=== PATIENT | male | born 1940 ===

== ENCOUNTER 2017-01-27 09:06 | Day surgery (SDC) | payer OTHER ==
[2017-01-25 13:13] VITALS: BMI 31.7
[2017-01-27] MEDS ORDERED: Iohexol 350mg/ml 100 ML ONE (09:36)
[2017-01-27] MEDS ORDERED: Midazolam 2 MG/2 ML VIAL ONE (09:46)
[2017-01-27] MEDS ORDERED: Lidocaine 2% Inj (20ml) ONE (09:49)
[2017-01-27] MEDS ORDERED: Sodium Chloride 0.9% 500 ML IV SCH (11:00)
--- NOTE | 2017-01-27 13:00 | CARDCATH ---
PROCEDURE DATE: 01/27/2017 PERFORMING PHYSICIAN: Kimmie Farr MD REFERRING PHYSICIAN: Wilner Summers MD PROCEDURE PERFORMED: Left heart catheterization, coronary angiography, left ventriculography. INDICATIONS: Unstable angina, abnormal stress test. COMPLICATIONS: None. HISTORY: As follows: The patient is a 76-year-old male with a past medical history of hypertension, hypercholesterolemia, and diabetes mellitus, who had a previous nuclear perfusion stress test reveal ing reversible inferior ischemia. The patient was admitted to [facility] with unstable angina. Cardiac catheterization was recommended. DESCRIPTION OF PROCEDURE: As follows: After obtaining informed consent, the patient was prepped and draped in usual sterile fashion. The right groin was anesthetized with 2% lidocaine solution. A 6- Macedonian sheath was inserted into the right common femoral artery via modified Seldinger technique. Un alex fluoroscopic guidance and over a guidewire, diagnostic Radha catheter was used to perform coron jose angiography and left ventriculography. All catheters were then removed. Manual pressure was ching lied for hemostasis. FINDINGS: HEMODYNAMICS: There is no gradient across the aortic valve. CORONARIES: Left main arises from left sinus of Valsalva. There is a 30% stenosis of the distal ves zack. LEFT ANTERIOR DESCENDING ARTERY: Arises from the left main and courses along the anterior interventr icular groove. There is a 40% stenosis of the ostium of the vessel. The mid vessel has a 90% stenos is. CIRCUMFLEX: Vessel arises from the left main and courses along the left atrioventricular groove. Th is is a smaller caliber vessel. There is sequential 90% stenoses of the mid circumflex. RIGHT CORONARY ARTERY: Arises from the right sinus of Valsalva. There is a right dominant circulati on. There are mild irregularities of the vessel. LEFT VENTRICLE: Normal left ventricular systolic function. Ejection fraction is 55%. There is no m itral regurgitation, no aortic stenosis. CONCLUSIONS: 1. Two-vessel coronary artery disease. 2. Normal left ventricular function. PLAN: The patient will be started on antiplatelet therapy. He will be scheduled for 2 vessel sheldon ry intervention. Kimmie Farr MD cc: [phone] TT: 01/27/2017 13:00:11 sn
[2017-01-28 15:42] VITALS: RESP 18; O2SAT 100
== END 2017-01-27 14:00 | disposition home or self-care (01) ==
LOC: C.CATHLAB 09:06
PROVIDERS: ATTEND Internal Medicine Cardiovascular Disease
DX: I20.0 Unstable angina (principal); R94.39 Abnormal result of other cardiovascular function study
CPT/HCPCS: 82948; 93458; 94770; C1769; C1887; J1644; J2250; J3010; J7040; Q9967

== ENCOUNTER 2017-04-04 23:34 | Inpatient (IN) | payer MEDICARE, OTHER ==
[2017-04-04 23:34] VITALS: BMI 29.2
[2017-04-05 00:27] LABS: BASO # 0.1 K/uL (0.0-0.2); BASO % 0.5 % (0.0-2.0); EOS # 0.2 K/uL (0.0-0.7); EOS % 1.8 % (0.0-4.0); HEMATOCRIT 37.3 % (35.0-51.0); LYMPH # 1.8 K/uL (1.0-4.3); LYMPH % 18.5 % (20.0-40.0); MEAN CELL VOLUME 89.9 fL (80.0-94.0); MEAN CORPUSCULAR HEMOGLOBIN 30.5 pg (27.0-31.0); MEAN CORPUSCULAR HGB CONC 33.9 g/dL (33.0-37.0); MEAN PLATELET VOLUME 10.8 fL (7.2-11.7); MONO # 1.1 K/uL (0.0-0.8); MONO % 11.2 % (0.0-10.0); NRBC % 0.1 % (0.0-2.0); RED CELL DISTRIBUTION WIDTH 13.6 % (11.5-14.5); WHITE BLOOD COUNT 9.6 K/uL (4.8-10.8)
[2017-04-05 00:28] LABS: CHLORIDE 95 mmol/L (98-107); SODIUM 130 mmol/L (132-148)
[2017-04-05 00:29] LABS: POTASSIUM 3.5 mmol/L (3.6-5.2)
[2017-04-05 00:31] LABS: ALB/GLOB RATIO 1.4 (1.0-2.1); ALKALINE PHOSPHATASE 88 U/L (38-126); ALT/SGPT 28 U/L (21-72); AST/SGOT 27 U/L (17-59); BILIRUBIN,TOTAL 1.2 mg/dL (0.2-1.3); BLOOD UREA NITROGEN 13 mg/dL (9-20); CARBON DIOXIDE 23 mmol/L (22-30); GFR AFRICAN-AMERICAN > 60; GLUCOSE,RANDOM 83 mg/dL (75-110)
[2017-04-05 00:32] LABS: CALCIUM 8.6 mg/dl (8.6-10.4)
[2017-04-05] MEDS ORDERED: Nitroglycerin 2% Ointment Foilpak UD TOP STA (00:52)
[2017-04-05] MEDS ORDERED: Nitroglycerin 2% Ointment Foilpak UD TOP ONE (00:53)
--- NOTE | 2017-04-05 01:40 | C.PDOC ---
History Of Present Illness Patient is a 76 year old male who presents to the ER with a complaint of a pressure like chest pain that began this afternoon. Patient states the pain was worse before but is almost gone now. Patient had a cardiac cath put in 2 months ago; records show left main stent placed. Patient denies nausea, vomiting or diaphoresis. Time Seen by Provider: 04/05/17 00:04 Chief Complaint (Nursing): Chest Pain History Per: Patient History/Exam Limitations: no limitations Onset/Duration Of Symptoms: Hrs Current Symptoms Are (Timing): Better Quality: Pressure Associated Symptoms: denies: Nausea, Diaphoresis, Other (Vomiting) Modifying Factors: None Exacerbating Factors: None Alleviating Factors: None Recent travel outside of the [place]: No Past Medical History Reviewed: Historical Data, Nursing Documentation, Vital Signs Vital Signs: Last Vital Signs Temp 99.3 F 04/06/17 23:10 Pulse 72 04/07/17 03:30 Resp 20 04/06/17 23:10 BP 142/59 L 04/06/17 23:10 Pulse Ox 99 04/06/17 23:10 - Medical History PMH: Arthritis, Diabetes, HTN Surgical History: Appendectomy (1960) - [employer] Procedures MEASURE OF CARDIAC SAMPL & PRESSURE, L HEART, PERC APPROACH (01/25/17) PLAIN RADIOGRAPHY OF SINGLE COR ART USING OTH CONTRAST (01/25/17) Family History: States: Hypertension - Social History Hx Tobacco Use: No Hx Alcohol Use: No Hx Substance Use: No - Immunization History Hx Tetanus Toxoid Vaccination: No Hx Influenza Vaccination: No Hx Pneumococcal Vaccination: Yes Review Of Systems Constitutional: Negative for: Sweats Cardiovascular: Positive for: Chest Pain Gastrointestinal: Negative for: Nausea, Vomiting Physical Exam - Physical Exam Appears: Non-toxic, No Acute Distress Skin: Normal Color, Warm, Dry Head: Atraumatic, Normacephalic Oral Mucosa: Moist Chest: Symmetrical, No Tenderness Cardiovascular: Rhythm Regular, No Murmur Respiratory: Normal Breath Sounds, No Rales, No Rhonchi, No Wheezing Gastrointestinal/Abdominal: Soft, No Tenderness Neurological/Psych: Oriented x3, Normal Speech, Normal Cognition, Other (Right facial droop) ED Course And Treatment - Laboratory Results Result Diagrams: 04/07/17 07:29 04/07/17 07:29 ECG Interpretation: Normal Interpretation Of ECG: No ST/T changes Rate From EC O2 Sat by Pulse Oximetry: 100 (Room air) Pulse Ox Interpretation: Normal - Radiology CXR: Interpreted by Me, Viewed By Me CXR Interpretation: Yes: No Acute Disease Medical Decision Making Medical Decision Making: Impression: 76 year old male with chest pain. Plan: * EKG * Blood work * CXR * Heparin * Nitro- Hx of recent PTCA left main with recurrent cp Will need observation Discussed with dr Rodas agrees with plan Disposition - Disposition Disposition: HOSPITALIZED Disposition Time: 00:00 Condition: FAIR - Clinical Impression Clinical Impression: Chest pain - Scribe Statement The provider has reviewed the documentation as recorded by the Scribe Hamzah Wilkinson All medical record entries made by the Scribe were at my direction and personally dictated by me. I have reviewed the chart and agree that the record accurately reflects my personal performance of the history, physical exam, medical decision making, and the department course for this patient. I have also personally directed, reviewed, and agree with the discharge instructions and disposition.
--- NOTE | 2017-04-05 01:45 | CP.PCM.HP ---
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 He reports the chest pain began around 11AM and has worsened throughout the day. He describes the pain as an intermittent, pressure-like sensation in his mid-sternum, that lasts for "5-10 minutes," and that radiated to his left shoulder. The pain is not made worse with exertion. The pain is not affected by respiration or position or direct pressure to chest wall. He rates the pain as 6-7/10 on the severity scale at worst, and absent now. Pt states the pain was associated with "feeling of lightheadedness," but denies room was spinning. He has had this pain before, saying it reminded him of chest pain he had two months ago. Pt admits cardiac cath two months with two-vessel disease. Two stents placed in left main by Dr. Farr. He denies recent strenuous activity. At baseline he uses cane to get around house. 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 Pt states he feels numbness and tingling in his legs, and that he has recently stopped taking his gabapentin because it "does not work." He denies palpitations , shortness of breath, abdominal pain, nausea, vomiting, diaphoresis, fever, fatigue, or chills. He denies sick contacts or recent travels. 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 Sánchez Present on Admission - Present on Admission Any Indicators Present on Admission: No History of Uncontrolled Diabetes: No Review of Systems - Constitutional Constitutional: absent: Chills, Fever - EENT Eyes: absent: Change in Vision Ears: absent: Decreased Hearing Nose/Mouth/Throat: absent: Sore Throat - Cardiovascular Cardiovascular: Chest Pain, Chest Pain at Rest, Chest Pain with Activity, Pain Radiating to Arm/Neck/Jaw (CP to left shoulder), Lightheadedness. absent: Dyspnea - Respiratory Respiratory: absent: Cough - Gastrointestinal Gastrointestinal: Constipation (chronic; takes miralax daily). absent: Abdominal Pain, Nausea, Vomiting - Genitourinary Genitourinary: absent: Difficulty Urinating, Dysuria - Musculoskeletal Musculoskeletal: Numbness (chronic finding - cervical/lumbar disc herniation), Tingling. absent: Back Pain - Neurological Neurological: Numbness, Tingling, Weakness. absent: Confusion, Disequilibrium - Psychiatric Psychiatric: absent: Anxiety, Depression - Endocrine Endocrine: absent: Polydipsia, Polyphagia, Polyuria Past Patient History - Past Medical History & Family History Past Medical History?: Yes - Past Social History Smoking Status: Heavy Smoker > 10 Cigarettes Daily - CARDIAC Hx Cardiac Disorders: Yes Hx Hypertension: Yes - PULMONARY Hx Respiratory Disorders: No - NEUROLOGICAL HX Cerebrovascular Accident: Yes (left facial weakness and slurred speech in 2000) - HEENT Hx HEENT Problems: Yes - RENAL Hx Chronic Kidney Disease: No - ENDOCRINE/METABOLIC Hx Endocrine Disorders: Yes Hx Diabetes Mellitus Type 2: Yes - HEMATOLOGICAL/ONCOLOGICAL Hx Blood Disorders: No Hx AIDS: No Hx Human Immunodeficiency Virus (HIV): No - INTEGUMENTARY Hx Dermatological Problems: No - MUSCULOSKELETAL/RHEUMATOLOGICAL Hx Musculoskeletal Disorders: Yes Hx Arthritis: Yes Hx Falls: No - GASTROINTESTINAL Hx Gastrointestinal Disorders: No - GENITOURINARY/GYNECOLOGICAL Hx Genitourinary Disorders: No - PSYCHIATRIC Hx Psychophysiologic Disorder: No Hx Substance Use: No - SURGICAL HISTORY Hx Appendectomy: Yes (1960) Other/Comment: carpal tunnel surgery on right hand 1981 - ANESTHESIA Hx Anesthesia: Yes Hx Anesthesia Reactions: No Hx Malignant Hyperthermia: No Meds Allergies/Adverse Reactions: Allergies Allergy/AdvReac Type Severity Reaction Status Date / Time No Known Allergies Allergy Verified 04/04/17 23:48 Physical Exam - Constitutional Appears: Non-toxic, No Acute Distress Additional comments: Pt comfortably relaxing in bed - Head Exam Head Exam: ATRAUMATIC, NORMOCEPHALIC - Eye Exam Eye Exam: EOMI. absent: Scleral icterus Pupil Exam: PERRL - ENT Exam ENT Exam: Mucous Membranes Moist Additional comments: Right facial droop which is sequelae of CVA in 1999 - Neck Exam Neck exam: Positive for: Normal Inspection Additional comments: NO JVD appreciated - Respiratory Exam Respiratory Exam: Clear to Auscultation Bilateral, NORMAL BREATHING PATTERN. absent: Rales, Rhonchi, Wheezes - Cardiovascular Exam Cardiovascular Exam: REGULAR RHYTHM, +S1, +S2 - GI/Abdominal Exam GI & Abdominal Exam: Normal Bowel Sounds, Soft. absent: Tenderness - Extremities Exam Extremities exam: Positive for: normal inspection, pedal edema (1+ bilateral pedal edema), pedal pulses present - Neurological Exam Neurological exam: Alert, Oriented x3 - Psychiatric Exam Psychiatric exam: Normal Affect, Normal Mood - Skin Skin Exam: Normal Color, Warm Results - Vital Signs Recent Vital Signs: Last Vital Signs Temp 98.4 F 04/04/17 23:42 Pulse 78 04/05/17 01:28 Resp 17 04/05/17 01:28 BP 178/81 H 04/05/17 01:28 Pulse Ox 100 04/05/17 01:28 - Labs Result Diagrams: 04/05/17 06:43 04/05/17 06:43 Assessment & Plan - Assessment and Plan (Free Text) Assessment: 76M with risk factors of prison HTN, hyperlipidemia, smoking history, and PMHx of recent PCI with two stents in left main coronary artery presenting with chest pain. Plan: Chest Pain Admit/Observe on Tele KOLBY negative x 1; f/u 2 additional Q6H EKG: Rate 77 bpm; No ST/T wave changes; f/u 2 additional Q6H CXR (04/04): NAD (wetread, see full report) ASA 325 mg PO given in field - ASA 81mg PO Daily Continue home meds: Brilinta 90mg PO Daily, Ranexa 500mg PO BID THADDEUS/ARB held as pt states he does not tolerate Lopressor 25 mg PO Q12H O2 2L PRN ECHO (01/14/17): EF 65% WNL, LV normal size, mild concentric LVH, LV function normal f/u TSH/free T4, lipid panel, Hgb A1C f/u AM CBC, CMP, Mg, Phos Cardiology consult: Dr. Farr, parker appreciated -f/u reccs T2DM Accuchecks continue home Metformin 1000mg PO Daily f/u A1C HTN Elevated since presentation Restart home meds: Hydralazine 50mg PO BID Furosemide 20mg PO Daily Lopressor 25mg PO Q12 Clonidine 0.1mg PO HS Hypokalemia 3.5 on initial labs, repleted f/u AM labs BPH Continue Flomax 0.4 mg PO HS CAD Crestor 10mg PO HS Prophylaxis SCDs Heparin 5000u Q12H Pepcid 20mg PO BID DW Dr. Rodas, delivery manager Ta Davey, PGY-1 <Yanick Rodas - Last Filed: 04/05/17 19:05> Results - Vital Signs Recent Vital Signs: Last Vital Signs Temp 98.5 F 04/05/17 15:15 Pulse 63 04/05/17 15:15 Resp 20 04/05/17 15:15 BP 133/70 04/05/17 15:15 Pulse Ox 100 04/05/17 15:15 - Labs Result Diagrams: 04/05/17 06:43 04/05/17 06:43 Labs: Laboratory Results - last 24 hr 04/05/17 04/05/17 04/05/17 06:14 06:43 06:43 WBC 9.2 RBC 3.97 L Hgb 12.2 Hct 35.8 MCV 90.1 MCH 30.7 MCHC 34.1 RDW 13.5 Plt Count 184 MPV 10.4 Neut % (Auto) 67.5 Lymph % (Auto) 17.7 L Trigg % (Auto) 11.3 H Eos % (Auto) 2.1 Baso % (Auto) 1.4 Neut # 6.2 Lymph # 1.6 Trigg # 1.0 H Eos # 0.2 Baso # 0.1 Sodium 137 Potassium 4.4 Chloride 101 Carbon Dioxide 27 Anion Gap 13 BUN 13 Creatinine 0.8 Est GFR ( Amer) > 60 Est GFR (Non-Af Amer) > 60 POC Glucose (mg/dL) 84 Random Glucose 87 Calcium 9.0 Phosphorus 3.2 Magnesium 2.0 Total Bilirubin 1.4 H AST 27 ALT 24 Alkaline Phosphatase 74 Total Creatine Kinase 110 CK-MB (Mass) 2.71 Troponin I, Quant < 0.0120 Total Protein 6.7 Albumin 3.7 Globulin 3.0 Albumin/Globulin Ratio 1.2 Triglycerides 53 D Cholesterol 104 LDL Cholesterol Direct 43 HDL Cholesterol 43 Free T4 TSH 3rd Generation 1.94 04/05/17 04/05/17 04/05/17 06:43 11:31 13:36 WBC RBC Hgb Hct MCV MCH MCHC RDW Plt Count MPV Neut % (Auto) Lymph % (Auto) Trigg % (Auto) Eos % (Auto) Baso % (Auto) Neut # Lymph # Trigg # Eos # Baso # Sodium Potassium Chloride Carbon Dioxide Anion Gap BUN Creatinine Est GFR ( Amer) Est GFR (Non-Af Amer) POC Glucose (mg/dL) 129 H Random Glucose Calcium Phosphorus Magnesium Total Bilirubin AST ALT Alkaline Phosphatase Total Creatine Kinase 133 CK-MB (Mass) 2.83 Troponin I, Quant < 0.0120 Total Protein Albumin Globulin Albumin/Globulin Ratio Triglycerides Cholesterol LDL Cholesterol Direct HDL Cholesterol Free T4 1.44 TSH 3rd Generation 04/05/17 16:16 WBC RBC Hgb Hct MCV MCH MCHC RDW Plt Count MPV Neut % (Auto) Lymph % (Auto) Trigg % (Auto) Eos % (Auto) Baso % (Auto) Neut # Lymph # Trigg # Eos # Baso # Sodium Potassium Chloride Carbon Dioxide Anion Gap BUN Creatinine Est GFR ( Amer) Est GFR (Non-Af Amer) POC Glucose (mg/dL) 123 H Random Glucose Calcium Phosphorus Magnesium Total Bilirubin AST ALT Alkaline Phosphatase Total Creatine Kinase CK-MB (Mass) Troponin I, Quant Total Protein Albumin Globulin Albumin/Globulin Ratio Triglycerides Cholesterol LDL Cholesterol Direct HDL Cholesterol Free T4 TSH 3rd Generation Assessment & Plan - Date & Time Date: 04/05/17 (I have seen and examined the patient. I agree with the findings and plan of care as documented by Dr. Davey. Patient with chest pain. History of CAD. Consult to Dr. Farr. [id number] with EKG. Aspirin and Statin. Continue home meds. Also with history of diabetes and hypertension. Continue home meds. NISS and accuchecks. Monitor for acute changes.) Time: 19:03 Attending/Attestation - Attestation I have personally seen and examined this patient.: Yes I have fully participated in the care of the patient.: Yes I have reviewed all pertinent clinical information: Yes
[2017-04-05] MEDS: Potassium Chloride 20 mEq ER Tab PO SCH ×2 (03:09→06:31)
[2017-04-05 06:49] LABS: BASO # 0.1 K/uL (0.0-0.2); BASO % 1.4 % (0.0-2.0); EOS # 0.2 K/uL (0.0-0.7); EOS % 2.1 % (0.0-4.0); HEMATOCRIT 35.8 % (35.0-51.0); LYMPH # 1.6 K/uL (1.0-4.3); LYMPH % 17.7 % (20.0-40.0); MEAN CELL VOLUME 90.1 fL (80.0-94.0); MEAN CORPUSCULAR HEMOGLOBIN 30.7 pg (27.0-31.0); MEAN CORPUSCULAR HGB CONC 34.1 g/dL (33.0-37.0); MEAN PLATELET VOLUME 10.4 fL (7.2-11.7); MONO % 11.3 % (0.0-10.0); RED CELL DISTRIBUTION WIDTH 13.5 % (11.5-14.5); WHITE BLOOD COUNT 9.2 K/uL (4.8-10.8)
[2017-04-05 06:58] LABS: CHLORIDE 101 mmol/L (98-107); POTASSIUM 4.4 mmol/L (3.6-5.2); SODIUM 137 mmol/L (132-148)
[2017-04-05 07:00] LABS: ALB/GLOB RATIO 1.2 (1.0-2.1); ALKALINE PHOSPHATASE 74 U/L (38-126); AST/SGOT 27 U/L (17-59); BILIRUBIN,TOTAL 1.4 mg/dL (0.2-1.3); BLOOD UREA NITROGEN 13 mg/dL (9-20); CARBON DIOXIDE 27 mmol/L (22-30); CHOLESTEROL 104 mg/dL (0-199); GFR AFRICAN-AMERICAN > 60; GLUCOSE,RANDOM 87 mg/dL (75-110); TOTAL PROTEIN 6.7 g/dL (6.3-8.3)
[2017-04-05 07:01] LABS: ALT/SGPT 24 U/L (21-72); PHOSPHOROUS 3.2 mg/dL (2.5-4.5)
[2017-04-05 07:31] LABS: THYROID STIMULATING HORMONE 1.94 mIU/L (0.46-4.68)
--- NOTE | 2017-04-05 08:47 | RAD ---
PROCEDURE: CHEST RADIOGRAPH, 1 VIEW HISTORY: chest pain COMPARISON: 03/20/2015 FINDINGS: LUNGS: Mild venous congestion. Patchy bibasilar airspace opacities. Biapical pleural thickening with upper lobe granulomatous changes. PLEURA: No pneumothorax or pleural fluid seen. CARDIOVASCULAR: Tortuous aorta. OSSEOUS STRUCTURES: Degenerative changes in the spine and shoulders. VISUALIZED UPPER ABDOMEN: Normal. OTHER FINDINGS: None. IMPRESSION: Mild venous congestion. Patchy bibasilar airspace opacities. Biapical pleural thickening with upper lobe granulomatous changes.
--- NOTE | 2017-04-05 09:49 | CP.PCM.CON ---
History of Present Illness - History of Present Illness History of Present Illness: I was asked to see patient by Dr. Rodas. Patient is a 76 year old male with a history of HTN, CAD s/p PCI mid LAD, hypercholesterolemia, DM who presents with chest pain. The patient was noted to have headache and hypertension, and was noted to have the onset of chest discomfort. He was brought to [facility], found to be hypertensive. He has been admitted to telemetry for further evaluation. The patient denies chest pain at present. Review of Systems - Constitutional Constitutional: absent: As Per HPI, Anorexia, Chills, Daytime Sleepiness, Excessive Sweating, Fatigue, Fever, Frequent Falls, Headache, Increased Appetite , Lethargy, Malaise, Night Sweats, Snoring, Sleep Apnea, Weight Gain, Weight Loss, Weakness, Other - EENT Eyes: absent: As Per HPI, Blind Spots, Blurred Vision, Change in Vision, Decreased Night Vision, Diplopia, Discharge, Dry Eye, Exophthalmos, Floaters, Irritation, Itchy Eyes, Loss of Peripheral Vision, Pain, Photophobia, Requires Corrective Lenses, Sees Flashes, Spots in Vision, Tunnel Vision, Other Visual Disturbances, Loss of Vision, Other Ears: absent: As Per HPI, Decreased Hearing, Ear Discharge, Ear Pain, Tinnitus, Abnormal Hearing, Disequilibrium, Dizziness, Other Nose/Mouth/Throat: absent: As Per HPI, Epistaxis, Nasal Congestion, Nasal Discharge, Nasal Obstruction, Nasal Trauma, Nose Pain, Post Nasal Drip, Sinus Pain, Sinus Pressure, Bleeding Gums, Change in Voice, Dental Pain, Dry Mouth, Dysphagia, Halitosis, Hoarsness, Lip Swelling, Mouth Lesions, Mouth Pain, Odynophagia, Sore Throat, Throat Swelling, Tongue Swelling, Facial Pain, Neck Pain, Neck Mass, Other - Cardiovascular Cardiovascular: absent: As Per HPI, Acrocyanosis, Chest Pain, Chest Pain at Rest , Chest Pain with Activity, Claudication, Diaphoresis, Dyspnea, Dyspnea on Exertion, Edema, Irregular Heart Rhythm, Pain Radiating to Arm/Neck/Jaw, Leg Edema, Leg Ulcers, Lightheadedness, Orthopnea, Palpitations, Paroxysmal Nocturnal Dyspnea, Pedal Edema, Radiating Pain, Rapid Heart Rate, Slow Heart Rate, Syncope, Other - Respiratory Respiratory: absent: As Per HPI, Cough, Dyspnea, Hemoptysis, Dyspnea on Exertion , Wheezing, Snoring, Stridor, Pain on Inspiration, Chest Congestion, Excessive Mucous Production, Change in Mucous Color, Pain with Coughing, Other - Gastrointestinal Gastrointestinal: absent: As Per HPI, Abdominal Pain, Belching, Bloating, Change in Bowel Habits, Change in Stool Character, Coffee Ground Emesis, Constipation, Cramping, Diarrhea, Dyspepsia, Dysphagia, Early Satiety, Excessive Flatus, Fecal Incontinence, Heartburn, Hematemesis, Hematochezia, Loose Stools, Melena, Nausea, Odynophagia, Temesmus, Vomiting, Other - Genitourinary Genitourinary: absent: As Per HPI, Change in Urinary Stream, Difficulty Urinating, Dysuria, Flank Pain, Hematuria, Pyuria, Nocturia, Urinary Incontinence, Urinary Frequency, Urinary Hesitance, Urinary Urgency, Voiding Freq/Small Amts, Freq UTI, Hx Renal/Bladder Calculi, Hx /Renal Surgery, Bladder Distension, Other - Musculoskeletal Musculoskeletal: absent: As Per HPI, Abnormal Gait, Arthralgias, Atrophy, Back Pain, Deformity, Joint Swelling, Limited Range of Motion, Loss of Height, Muscle Cramps, Muscle Weakness, Myalgias, Neck Pain, Numbness, Radiating Pain into Limb, Stiffness, Tingling, Other - Integumentary Integumentary: absent: As Per HPI, Acne, Alopecia, Bleeding Lesions, Change in Hair, Change in Nails, Change in Pigmentation, Changing Lesions, Dry Skin, Erythema, Furuncle, Hirsutism, Lesions, New Lesions, Non-Healing Lesions, Photosensitivity, Pruritus, Rash, Skin Pain, Skin Ulcer, Sores, Striae, Swelling , Unusual Bruising, Wounds, Jaundice, Other - Neurological Neurological: absent: As Per HPI, Abnormal Gait, Abnormal Hearing, Abnormal Movements, Abnormal Speech, Behavioral Changes, Burning Sensations, Confusion, Convulsions, Disequilibrium, Dizziness, Numbness, Focal Weakness, Frequent Falls , Headaches, Lack of Coordination, Loss of Vision, Memory Loss, Paresthesias, Radicular Pain, Restless Legs, Sensory Deficit, Syncope, Tingling, Tremor, Vertigo, Weakness, Other Visual Disturbances, Other - Psychiatric Psychiatric: absent: As Per HPI, Abnormal Sleep Pattern, Anhedonia, Anxiety, Auditory Hallucinations, Behavioral Changes, Change in Appetite, Change in Libido, Confusion, Depression, Difficulty Concentrating, Hallucinations, Homicidal Ideation, Hopelessness, Irritability, Memory Loss, Mood Swings, Panic Attacks, Paranoia, Suicidal Ideation, Visual Hallucinations, Tactile Hallucinations, Other - Endocrine Endocrine: absent: As Per HPI, Change in Body Appearance, Change in Libido, Cold Intolorance, Deepening of Voice, Excessive Sweating, Fatigue, Flushing, Heat Intolorance, Increase in Ring/Shoe/Hat Size, Palpitations, Polydipsia, Polyphagia, Polyuria, Other - Hematologic/Lymphatic Hematologic: absent: As Per HPI, Easy Bleeding, Easy Bruising, Lymphadenopathy, Other Past Patient History - Past Medical History & Family History Past Medical History?: Yes - Past Social History Smoking Status: Heavy Smoker > 10 Cigarettes Daily - CARDIAC Hx Cardiac Disorders: Yes Hx Hypertension: Yes - PULMONARY Hx Respiratory Disorders: No - NEUROLOGICAL HX Cerebrovascular Accident: Yes (left facial weakness and slurred speech in 2000) - HEENT Hx HEENT Problems: Yes - RENAL Hx Chronic Kidney Disease: No - ENDOCRINE/METABOLIC Hx Endocrine Disorders: Yes Hx Diabetes Mellitus Type 2: Yes - HEMATOLOGICAL/ONCOLOGICAL Hx Blood Disorders: No Hx AIDS: No Hx Human Immunodeficiency Virus (HIV): No - INTEGUMENTARY Hx Dermatological Problems: No - MUSCULOSKELETAL/RHEUMATOLOGICAL Hx Musculoskeletal Disorders: Yes Hx Arthritis: Yes Hx Falls: No - GASTROINTESTINAL Hx Gastrointestinal Disorders: No - GENITOURINARY/GYNECOLOGICAL Hx Genitourinary Disorders: No - PSYCHIATRIC Hx Psychophysiologic Disorder: No Hx Substance Use: No - SURGICAL HISTORY Hx Appendectomy: Yes (1960) Other/Comment: carpal tunnel surgery on right hand 1981 - ANESTHESIA Hx Anesthesia: Yes Hx Anesthesia Reactions: No Hx Malignant Hyperthermia: No Meds Allergies/Adverse Reactions: Allergies Allergy/AdvReac Type Severity Reaction Status Date / Time No Known Allergies Allergy Verified 04/04/17 23:48 - Medications Medications: Current Medications Aspirin (Ecotrin) 81 mg PO DAILY [facility] Famotidine (Pepcid) 20 mg PO BID [facility] Furosemide (Lasix) 20 mg PO Q24H [facility] Heparin Sodium (Porcine) (Heparin) 5,000 units SC Q12 [facility] Losartan Potassium (Cozaar) 25 mg PO DAILY [facility] Metformin HCl (Glucophage) 1,000 mg PO DAILY [facility] Metoprolol Tartrate (Lopressor) 25 mg PO Q12 [facility] Ranolazine (Ranexa) 1,000 mg PO BID [facility] Rosuvastatin Calcium (Crestor) 10 mg PO HS [facility] Tamsulosin HCl (Flomax) 0.4 mg PO DAILY [facility] Ticagrelor (Brilinta) 90 mg PO BID [facility] Physical Exam - Constitutional Appears: Non-toxic - Head Exam Head Exam: NORMAL INSPECTION - Eye Exam Eye Exam: Normal appearance - ENT Exam ENT Exam: Mucous Membranes Moist - Neck Exam Neck exam: Positive for: Full Rom - Cardiovascular Exam Cardiovascular Exam: REGULAR RHYTHM - GI/Abdominal Exam GI & Abdominal Exam: Normal Bowel Sounds - Rectal Exam Rectal Exam: Deferred - Extremities Exam Extremities exam: Positive for: normal inspection - Back Exam Back exam: NORMAL INSPECTION - Neurological Exam Neurological exam: Alert, Oriented x3 - Psychiatric Exam Psychiatric exam: Normal Affect - Skin Skin Exam: Normal Color Results - Vital Signs Recent Vital Signs: Last Vital Signs Temp 98.9 F 04/05/17 08:15 Pulse 59 L 04/05/17 08:15 Resp 20 04/05/17 08:15 BP 177/76 H 04/05/17 08:15 Pulse Ox 99 04/05/17 08:15 - Labs Result Diagrams: 04/05/17 06:43 04/05/17 06:43 Labs: Laboratory Results - last 24 hr 04/05/17 04/05/17 04/05/17 06:14 06:43 06:43 WBC 9.2 RBC 3.97 L Hgb 12.2 Hct 35.8 MCV 90.1 MCH 30.7 MCHC 34.1 RDW 13.5 Plt Count 184 MPV 10.4 Neut % (Auto) 67.5 Lymph % (Auto) 17.7 L Bartholomew % (Auto) 11.3 H Eos % (Auto) 2.1 Baso % (Auto) 1.4 Neut # 6.2 Lymph # 1.6 Bartholomew # 1.0 H Eos # 0.2 Baso # 0.1 Sodium 137 Potassium 4.4 Chloride 101 Carbon Dioxide 27 Anion Gap 13 BUN 13 Creatinine 0.8 Est GFR ( Amer) > 60 Est GFR (Non-Af Amer) > 60 POC Glucose (mg/dL) 84 Random Glucose 87 Calcium 9.0 Phosphorus 3.2 Magnesium 2.0 Total Bilirubin 1.4 H AST 27 ALT 24 Alkaline Phosphatase 74 Total Creatine Kinase 110 CK-MB (Mass) 2.71 Troponin I, Quant < 0.0120 Total Protein 6.7 Albumin 3.7 Globulin 3.0 Albumin/Globulin Ratio 1.2 Triglycerides 53 D Cholesterol 104 LDL Cholesterol Direct 43 HDL Cholesterol 43 Free T4 TSH 3rd Generation 1.94 04/05/17 06:43 WBC RBC Hgb Hct MCV MCH MCHC RDW Plt Count MPV Neut % (Auto) Lymph % (Auto) Bartholomew % (Auto) Eos % (Auto) Baso % (Auto) Neut # Lymph # Bartholomew # Eos # Baso # Sodium Potassium Chloride Carbon Dioxide Anion Gap BUN Creatinine Est GFR ( Amer) Est GFR (Non-Af Amer) POC Glucose (mg/dL) Random Glucose Calcium Phosphorus Magnesium Total Bilirubin AST ALT Alkaline Phosphatase Total Creatine Kinase CK-MB (Mass) Troponin I, Quant Total Protein Albumin Globulin Albumin/Globulin Ratio Triglycerides Cholesterol LDL Cholesterol Direct HDL Cholesterol Free T4 1.44 TSH 3rd Generation - EKG Data EKG Interpreted by: Myself EKG shows normal: Sinus rhythm Assessment & Plan (1) Hypercholesteremia Assessment and Plan: continue statin therapy Status: Acute (2) CAD (coronary atherosclerotic disease) Assessment and Plan: s/p PCI LAD. has small caliber circumflex which is diseased. recommend increase Ranexa to 1000mg BID. Conitnue Brilinta (patient is a nonresponder. to Plavix) Status: Acute (3) Hypertensive emergency Assessment and Plan: will add Losartan Status: Acute (4) DM2 (diabetes mellitus, type 2) Assessment and Plan: recommend aggressive glucose control Status: Chronic
[2017-04-05] MEDS ORDERED: Ranolazine 500 mg Extended Release Tablets PO SCH (10:00)
[2017-04-05] MEDS: Ranolazine 500 mg Extended Release Tablets PO SCH ×2 (10:07→17:42)
--- NOTE | 2017-04-05 14:19 | CT ---
PROCEDURE: CT HEAD WITHOUT CONTRAST. HISTORY: headache COMPARISON: None available. TECHNIQUE: Axial computed tomography images were obtained through the head/brain without intravenous contrast. Radiation dose: Total exam DLP = 922 mGy-cm. This CT exam was performed using one or more of the following dose reduction techniques: Automated exposure control, adjustment of the mA and/or kV according to patient size, and/or use of iterative reconstruction technique. FINDINGS: HEMORRHAGE: No intracranial hemorrhage. BRAIN: No mass effect or edema. Evidence of chronic microvascular ischemic changes. VENTRICLES: Unremarkable. No hydrocephalus. CALVARIUM: Unremarkable. PARANASAL SINUSES: Unremarkable as visualized. No significant inflammatory changes. MASTOID AIR CELLS: Unremarkable as visualized. No inflammatory changes. OTHER FINDINGS: None. IMPRESSION: No intracranial bleed.
[2017-04-05] MEDS ORDERED: Simethicone 80 mg Chewtab PO ONE (20:23)
[2017-04-05] MEDS ORDERED: POLYETHYLENE GLYCOL 3350 17 GM/Dose PACKET PO ONE (20:23)
[2017-04-06] MEDS: Ranolazine 500 mg Extended Release Tablets PO SCH ×2 (09:39→18:24)
[2017-04-06] MEDS: Simethicone 80 mg Chewtab PO PRN ×2 (10:01→18:26)
[2017-04-06] MEDS ORDERED: Sodium Chloride 0.9% 250 ML IV ONE (10:50)
--- NOTE | 2017-04-06 10:54 | PCM.RRTMUL ---
RESUME WRITER Nurses Assessment - Vital Signs Blood Pressure:: 131/71 Pulse Rate:: 93 - Constitutional Appears: No Acute Distress - Head Head Exam: ATRAUMATIC - Eyes Eye Exam: EOMI - Respiratory Exam Respiratory Exam: NORMAL BREATHING PATTERN - Cardiovascular Exam Cardiovascular Exam: +S1, +S2 - GI/Abdominal Exam GI & Abdominal Exam: Normal Bowel Sounds - Neurological Exam Neurological Exam: Alert, Awake - Extremities Exam Extremities Exam: Normal Inspection Plan - A. End of RESUME WRITER Vital Signs: Blood Pressure: 139/71 Pulse Rate: 61 Respiratory Rate: 18 O2 Sat by Pulse Oximetry: 100 - B. Assessment of Findings&Treatment Plan Rapid response called for dizziness. Patient was having bowel movement when he complained of dizziness. Patient was assisted to chair. Patient did not lose consciousness and was able to follow commands and answer questions appropriately. Vital signs on examination 139/71, HR 61, O2 sat 100%. Patient comfortable, laying in bed, head of bed lowered. EKG stat ordered- normal sinus rhythm, HR in 80s. Possible vasovagal response during BM. Will adjust BP medications. 250cc saline bolus ordered. Will check vitals q15min for the next hour.
--- NOTE | 2017-04-06 11:18 | CP.PCM.PN ---
Addendum entered and electronically signed by Ta Davey DO 04/06/17 16:32: Pt notes using Afrin Daily "for years." Started Fransico-milli, advised pt to stop using Afrin daily as it leads to rebound congestion. Original Note: <Ta Davey - Last Filed: 04/06/17 16:30> Subjective - Date & Time of Evaluation Date of Evaluation: 04/06/17 Time of Evaluation: 11:06 - Subjective Subjective: PGY-1 Medicine Progress Note Patient was seen and examined at bedside. Patient states that he is feeling okay today. He states that he doesnt have the chest pain anymore and that his only real concerns this morning are his breathing and having "too much gas". He states that he has been ambulating with his cane, and has been tolerating his diet well. Patient states that he had a bowel movement yesterday and just feels gassy and bloated. He explained to the nursing staff that he takes miralax at bedtime and gas x for gas pain at home. He denied any chest pain, palpitations, nausea, vomiting, d/c, changes in urination, headache, dizziness, jaw pain, fever, chills, or changes in vision. Pt later on in AM had VAMP MARKER for dizziness while having BM. He did not lose consciousness and was oriented times 3, and able to answer questions and follow commands. EKG done at time showed NSR, Rate 50; No ST/T wave changes. Will reach out to Dr. Farr for further recommendations. Objective - Vital Signs/Intake and Output Vital Signs (last 24 hours): Temp Pulse Resp BP Pulse Ox 99 F 61 18 139/71 99 04/06/17 07:10 04/06/17 10:56 04/06/17 10:56 04/06/17 10:56 04/06/17 07:10 Intake and Output: 04/06/17 04/06/17 06:59 18:59 Intake Total 400 Balance 400 - Medications Medications: Current Medications Aspirin (Ecotrin) 81 mg PO DAILY [facility] Last Admin: 04/06/17 09:39 Dose: 81 mg Famotidine (Pepcid) 20 mg PO BID [facility] Last Admin: 04/06/17 09:39 Dose: 20 mg Furosemide (Lasix) 20 mg PO Q24H [facility] Last Admin: 04/05/17 13:13 Dose: 20 mg Heparin Sodium (Porcine) (Heparin) 5,000 units SC Q12 [facility] Last Admin: 04/06/17 09:47 Dose: 5,000 units Sodium Chloride (Sodium Chloride 0.9%) 250 mls @ 250 mls/hr IV .Q1H ONE Stop: 04/06/17 11:49 Isosorbide Mononitrate (Imdur) 30 mg PO DAILY [facility] Last Admin: 04/06/17 09:40 Dose: 30 mg Losartan Potassium (Cozaar) 25 mg PO DAILY [facility] Last Admin: 04/06/17 09:39 Dose: 25 mg Metformin HCl (Glucophage) 1,000 mg PO DAILY [facility] Last Admin: 04/06/17 09:40 Dose: 1,000 mg Metoprolol Tartrate (Lopressor) 25 mg PO Q12 [facility] Last Admin: 04/06/17 09:41 Dose: 25 mg Ranolazine (Ranexa) 1,000 mg PO BID [facility] Last Admin: 04/06/17 09:39 Dose: 1,000 mg Rosuvastatin Calcium (Crestor) 10 mg PO HS [facility] Last Admin: 04/05/17 21:42 Dose: 10 mg Simethicone (Mylicon Chew Tab) 80 mg PO Q6H PRN PRN Reason: GI distress Last Admin: 04/06/17 10:01 Dose: 80 mg Tamsulosin HCl (Flomax) 0.4 mg PO DAILY [facility] Last Admin: 04/06/17 09:39 Dose: 0.4 mg Ticagrelor (Brilinta) 90 mg PO BID [facility] Last Admin: 04/06/17 09:40 Dose: 90 mg - Labs Labs: 04/05/17 06:43 04/05/17 06:43 - Additional Findings Additional findings: - Constitutional Appears: Non-toxic, No Acute Distress Additional comments: Pt found standing waling from bed to bathroom, able to speak in full sentences - Head Exam Head Exam: ATRAUMATIC, NORMOCEPHALIC - Eye Exam Eye Exam: EOMI. absent: Scleral icterus Pupil Exam: PERRL - ENT Exam ENT Exam: Mucous Membranes Moist Additional comments: Right facial droop which is sequelae of CVA in 1999 - Neck Exam Neck exam: Positive for: Normal Inspection Additional comments: NO JVD appreciated - Respiratory Exam Respiratory Exam: Clear to Auscultation Bilateral, NORMAL BREATHING PATTERN. absent: Rales, Rhonchi, Wheezes - Cardiovascular Exam Cardiovascular Exam: REGULAR RHYTHM, +S1, +S2 - GI/Abdominal Exam GI & Abdominal Exam: Normal Bowel Sounds, Soft. absent: Tenderness - Extremities Exam Extremities exam: Positive for: normal inspection, pedal edema (1+ bilateral pedal edema), pedal pulses present - Neurological Exam Neurological exam: Alert, Oriented x3 - Psychiatric Exam Psychiatric exam: Normal Affect, Normal Mood - Skin Skin Exam: Normal Color, Warm Assessment and Plan - Assessment and Plan (Free Text) Assessment: 76M with risk factors of mcc HTN, hyperlipidemia, smoking history, and PMHx of recent PCI with two stents in left main coronary artery presenting with chest pain. Plan: Chest Pain Observe on Tele KOLBY negative x 3 EKG: Rate 77 bpm; No ST/T wave changes x 3 CXR (04/04): Mild venous congestion. Patchy bibasilar airspace opacities. Biapical pleural thickening w upper lobe granulomatous changes. (see full report ) ASA 325 mg PO given in field - ASA 81mg PO Daily Continue home meds: Brilinta 90mg PO Daily Start Losartan 25 mg PO Daily Lopressor 25 mg PO Q12H O2 2L PRN ECHO (01/14/17): EF 65% WNL, LV normal size, mild concentric LVH, LV function normal TSH/free T4: WNL Lipid panel: WNL Cardiology consult: Dr. Frar, help appreciated - Increase Ranexa to 1000mg BID, add Losartan 25mg Daily Headache Resolved CT Head (04/05/17): No intracranial bleed. (see full report) T2DM Accuchecks continue home Metformin 1000mg PO Daily A1C: 5.9 HTN Elevated since presentation Restart home meds: Lopressor 25mg PO Q12 Lasix 20mg PO Q24H Imdur 30mg PO Daily Losartan 25mg PO HS - moved to before bed to space out BP meds Hypokalemia Resolved BPH Continue Flomax 0.4 mg PO HS CAD Crestor 10mg PO HS Prophylaxis SCDs Heparin 5000u Q12H Pepcid 20mg PO BID DW Dr. Tatiana Davey, PGY-1 <Bill Simpson - Last Filed: 04/07/17 07:34> Objective - Vital Signs/Intake and Output Vital Signs (last 24 hours): Temp Pulse Resp BP Pulse Ox 99.3 F 72 20 142/59 L 99 04/06/17 23:10 04/07/17 03:30 04/06/17 23:10 04/06/17 23:10 04/06/17 23:10 - Medications Medications: Current Medications Aspirin (Ecotrin) 81 mg PO DAILY [facility] Last Admin: 04/06/17 09:39 Dose: 81 mg Famotidine (Pepcid) 20 mg PO BID [facility] Last Admin: 04/06/17 18:24 Dose: 20 mg Fluticasone Propionate (Flonase) 2 spr GISELA DAILY [facility] Last Admin: 04/06/17 18:24 Dose: 2 spr Furosemide (Lasix) 20 mg PO Q24H [facility] Last Admin: 04/06/17 13:50 Dose: 20 mg Heparin Sodium (Porcine) (Heparin) 5,000 units SC Q12 [facility] Last Admin: 04/06/17 22:11 Dose: 5,000 units Isosorbide Mononitrate (Imdur) 30 mg PO DAILY [facility] Last Admin: 04/06/17 09:40 Dose: 30 mg Losartan Potassium (Cozaar) 25 mg PO HS [facility] Metformin HCl (Glucophage) 1,000 mg PO DAILY [facility] Last Admin: 04/06/17 09:40 Dose: 1,000 mg Metoprolol Tartrate (Lopressor) 25 mg PO Q12 [facility] Last Admin: 04/06/17 22:11 Dose: 25 mg Ranolazine (Ranexa) 1,000 mg PO BID [facility] Last Admin: 04/06/17 18:24 Dose: 1,000 mg Rosuvastatin Calcium (Crestor) 10 mg PO HS [facility] Last Admin: 04/06/17 22:11 Dose: 10 mg Simethicone (Mylicon Chew Tab) 80 mg PO Q6H PRN PRN Reason: GI distress Last Admin: 04/06/17 18:26 Dose: 80 mg Sodium Chloride ([place] Baby Saline 30 Ml) 0 ml GISELA Q8H PRN PRN Reason: Nasal congestion Last Admin: 04/06/17 22:12 Dose: 1 spr Tamsulosin HCl (Flomax) 0.4 mg PO DAILY [facility] Last Admin: 04/06/17 09:39 Dose: 0.4 mg Ticagrelor (Brilinta) 90 mg PO BID [facility] Last Admin: 04/06/17 18:24 Dose: 90 mg Attending/Attestation - Attestation I have personally seen and examined this patient.: Yes I have fully participated in the care of the patient.: Yes I have reviewed all pertinent clinical information, including history, physical exam and plan: Yes
[2017-04-06] MEDS: Fluticasone Nasal 50 mcg/Spray NAS SCH (18:24)
--- NOTE | 2017-04-06 18:32 | CARD ---
APPROVED REPORT EKG Measurement Heart [id number] <Conclusion> Sinus bradycardia Otherwise normal ECG
[2017-04-06] MEDS: Sodium Chloride Nasal 0.65% Soln (30ml) NAS PRN (22:12)
[2017-04-07 07:47] LABS: BASO # 0.1 K/uL (0.0-0.2); BASO % 0.8 % (0.0-2.0); EOS # 0.2 K/uL (0.0-0.7); HEMATOCRIT 26.1 % (35.0-51.0); MEAN PLATELET VOLUME 11.3 fL (7.2-11.7); MONO # 0.9 K/uL (0.0-0.8)
[2017-04-07 07:48] LABS: CHLORIDE 100 mmol/L (98-107); POTASSIUM 3.6 mmol/L (3.6-5.2); SODIUM 134 mmol/L (132-148)
[2017-04-07 07:50] LABS: ALB/GLOB RATIO 1.3 (1.0-2.1); AST/SGOT 21 U/L (17-59); BILIRUBIN,TOTAL 0.7 mg/dL (0.2-1.3); CARBON DIOXIDE 25 mmol/L (22-30); GFR AFRICAN-AMERICAN > 60; TOTAL PROTEIN 5.8 g/dL (6.3-8.3)
[2017-04-07 07:51] LABS: ALKALINE PHOSPHATASE 57 U/L (38-126); ALT/SGPT 20 U/L (21-72); BLOOD UREA NITROGEN 44 mg/dL (9-20); CALCIUM 8.1 mg/dl (8.6-10.4); GLUCOSE,RANDOM 94 mg/dL (75-110); MAGNESIUM 1.7 mg/dL (1.6-2.3); PHOSPHOROUS 2.8 mg/dL (2.5-4.5)
[2017-04-07 07:55] LABS: EOS % 1.6 % (0.0-4.0); LYMPH # 1.8 K/uL (1.0-4.3); LYMPH % 18.7 % (20.0-40.0); MEAN CELL VOLUME 91.2 fL (80.0-94.0); MEAN CORPUSCULAR HEMOGLOBIN 30.8 pg (27.0-31.0); MEAN CORPUSCULAR HGB CONC 33.7 g/dL (33.0-37.0); MONO % 8.8 % (0.0-10.0); RED CELL DISTRIBUTION WIDTH 13.6 % (11.5-14.5); WHITE BLOOD COUNT 9.8 K/uL (4.8-10.8)
[2017-04-07] MEDS: Simethicone 80 mg Chewtab PO PRN ×2 (08:40→18:14)
[2017-04-07] MEDS: Ranolazine 500 mg Extended Release Tablets PO SCH ×2 (10:17→18:10)
[2017-04-07] MEDS: Fluticasone Nasal 50 mcg/Spray NAS SCH (10:27)
[2017-04-07 10:30] LABS: MEAN CELL VOLUME 90.8 fL (80.0-94.0); MEAN CORPUSCULAR HEMOGLOBIN 30.2 pg (27.0-31.0); MEAN CORPUSCULAR HGB CONC 33.3 g/dL (33.0-37.0); MEAN PLATELET VOLUME 10.7 fL (7.2-11.7); RED CELL DISTRIBUTION WIDTH 13.7 % (11.5-14.5); WHITE BLOOD COUNT 9.6 K/uL (4.8-10.8)
--- NOTE | 2017-04-07 10:49 | CP.PCM.PN ---
<Ta Davey - Last Filed: 04/07/17 11:00> Subjective - Date & Time of Evaluation Date of Evaluation: 04/07/17 Time of Evaluation: 10:44 - Subjective Subjective: PGY-1 Medicine Progress Note Patient was seen and examined at bedside. Patient states that he is feeling well today, other than occasional gas pain which resolved with his morning gas- x. Pts morning labwork showed decrease in hemoglobin from 12.7 on admission to 8.8 today, repeat STAT CBC showing 9.3. Plan for today was discharge however, with variance in hemoglobin plan is to monitor AM CBC. Pt does report history of hemorrhoids. Pt denies chest pain, palpitations, SOB, dizziness, hematemesis , hematuria, or vincent blood in his bowel movements. Objective - Vital Signs/Intake and Output Vital Signs (last 24 hours): Temp Pulse Resp BP Pulse Ox 98.5 F 76 20 133/65 97 04/07/17 07:50 04/07/17 08:45 04/07/17 08:35 04/07/17 10:20 04/07/17 08:35 - Medications Medications: Current Medications Aspirin (Ecotrin) 81 mg PO DAILY [facility] Last Admin: 04/07/17 10:16 Dose: 81 mg Famotidine (Pepcid) 20 mg PO BID [facility] Last Admin: 04/07/17 10:16 Dose: 20 mg Fluticasone Propionate (Flonase) 2 spr GISEAL DAILY [facility] Last Admin: 04/07/17 10:27 Dose: 2 spr Furosemide (Lasix) 20 mg PO Q24H [facility] Last Admin: 04/06/17 13:50 Dose: 20 mg Heparin Sodium (Porcine) (Heparin) 5,000 units SC Q12 [facility] Last Admin: 04/07/17 10:16 Dose: 5,000 units Isosorbide Mononitrate (Imdur) 30 mg PO DAILY [facility] Last Admin: 04/07/17 10:16 Dose: 30 mg Losartan Potassium (Cozaar) 25 mg PO HS [facility] Metformin HCl (Glucophage) 1,000 mg PO DAILY [facility] Last Admin: 04/07/17 10:16 Dose: 1,000 mg Metoprolol Tartrate (Lopressor) 25 mg PO Q12 [facility] Last Admin: 04/07/17 10:20 Dose: 25 mg Ranolazine (Ranexa) 1,000 mg PO BID [facility] Last Admin: 04/07/17 10:17 Dose: 1,000 mg Rosuvastatin Calcium (Crestor) 10 mg PO HS [facility] Last Admin: 04/06/17 22:11 Dose: 10 mg Simethicone (Mylicon Chew Tab) 80 mg PO Q6H PRN PRN Reason: GI distress Last Admin: 04/07/17 08:40 Dose: 80 mg Sodium Chloride ([place] Baby Saline 30 Ml) 0 ml GISELA Q8H PRN PRN Reason: Nasal congestion Last Admin: 04/06/17 22:12 Dose: 1 spr Tamsulosin HCl (Flomax) 0.4 mg PO DAILY [facility] Last Admin: 04/07/17 10:16 Dose: 0.4 mg Ticagrelor (Brilinta) 90 mg PO BID [facility] Last Admin: 04/07/17 10:16 Dose: 90 mg - Labs Labs: 04/07/17 10:20 04/07/17 07:29 - Rectal Exam Rectal Exam: absent: Bloody Stool Additional comments: Prostate moderately enlarged, smooth, no discrete nodules felt Assessment and Plan - Assessment and Plan (Free Text) Plan: Acute Anemia Hgb 12.7 on admission, 8.8 on AM labs - STAT repeat of 9.3 No vincent bleeding f/u CBC in AM Chest Pain Resolved Observe on Tele KOLBY negative x 3 EKG: Rate 77 bpm; No ST/T wave changes x 3 CXR (04/04): Mild venous congestion. Patchy bibasilar airspace opacities. Biapical pleural thickening w upper lobe granulomatous changes. (see full report ) ASA 325 mg PO given in field - ASA 81mg PO Daily Continue home meds: Brilinta 90mg PO Daily Continue Losartan 25 mg HS Lopressor 25 mg PO Q12H O2 2L PRN ECHO (01/14/17): EF 65% WNL, LV normal size, mild concentric LVH, LV function normal TSH/free T4: WNL Lipid panel: WNL Cardiology consult: Dr. Farr, help appreciated - Increase Ranexa to 1000mg BID, add Losartan 25mg Daily Headache Resolved CT Head (04/05/17): No intracranial bleed. (see full report) Nasal congestion Hx of Afrin use for "years" Flonase INH Daily [place] PRN T2DM Accuchecks continue home Metformin 1000mg PO Daily A1C: 5.9 HTN Elevated at presentation, now normotensive with med changes Restart home meds: Lopressor 25mg PO Q12 Lasix 20mg PO Q24H Imdur 30mg PO Daily Losartan 25mg PO HS - moved to before bed to space out BP meds Hypokalemia Resolved BPH Continue Flomax 0.4 mg PO HS CAD Crestor 10mg PO HS Prophylaxis SCDs Heparin 5000u Q12H Pepcid 20mg PO BID Dr. Tatiana Davey, PGY-1 <Bill Simpson H - Last Filed: 04/07/17 15:22> Objective - Vital Signs/Intake and Output Vital Signs (last 24 hours): Temp Pulse Resp BP Pulse Ox 98.5 F 68 20 115/58 L 99 04/07/17 07:50 04/07/17 12:00 04/07/17 08:35 04/07/17 14:17 04/07/17 11:59 - Medications Medications: Current Medications Aspirin (Ecotrin) 81 mg PO DAILY [facility] Last Admin: 04/07/17 10:16 Dose: 81 mg Famotidine (Pepcid) 20 mg PO BID [facility] Last Admin: 04/07/17 10:16 Dose: 20 mg Fluticasone Propionate (Flonase) 2 spr GISELA DAILY [facility] Last Admin: 04/07/17 10:27 Dose: 2 spr Furosemide (Lasix) 20 mg PO Q24H [facility] Last Admin: 04/07/17 14:17 Dose: 20 mg Heparin Sodium (Porcine) (Heparin) 5,000 units SC Q12 [facility] Last Admin: 04/07/17 10:16 Dose: 5,000 units Isosorbide Mononitrate (Imdur) 30 mg PO DAILY [facility] Last Admin: 04/07/17 10:16 Dose: 30 mg Losartan Potassium (Cozaar) 25 mg PO HS [facility] Metformin HCl (Glucophage) 1,000 mg PO DAILY [facility] Last Admin: 04/07/17 10:16 Dose: 1,000 mg Metoprolol Tartrate (Lopressor) 25 mg PO Q12 [facility] Last Admin: 04/07/17 10:20 Dose: 25 mg Ranolazine (Ranexa) 1,000 mg PO BID [facility] Last Admin: 04/07/17 10:17 Dose: 1,000 mg Rosuvastatin Calcium (Crestor) 10 mg PO HS [facility] Last Admin: 04/06/17 22:11 Dose: 10 mg Simethicone (Mylicon Chew Tab) 80 mg PO Q6H PRN PRN Reason: GI distress Last Admin: 04/07/17 08:40 Dose: 80 mg Sodium Chloride ([place] Baby Saline 30 Ml) 0 ml GISELA Q8H PRN PRN Reason: Nasal congestion Last Admin: 04/06/17 22:12 Dose: 1 spr Tamsulosin HCl (Flomax) 0.4 mg PO DAILY [facility] Last Admin: 04/07/17 10:16 Dose: 0.4 mg Ticagrelor (Brilinta) 90 mg PO BID [facility] Last Admin: 04/07/17 10:16 Dose: 90 mg - Labs Labs: 04/07/17 10:20 04/07/17 07:29 Attending/Attestation - Attestation I have personally seen and examined this patient.: Yes I have fully participated in the care of the patient.: Yes I have reviewed all pertinent clinical information, including history, physical exam and plan: Yes Notes (Text): 04/07/17 15:17 Medical Attending: Patient was seen and examined by me, agree with the above note by the resident. The patient was alert, awake, interacting with us. He was able to stand with his cane at bedside and we later watched him move with PT. Yesterday adjustments were made as to when the medications where being given. Hgb lower today, a repeat was done and was only a little higher. If tommorow CBC is stable then probably can be DC. thank you Bill Simpson
--- NOTE | 2017-04-07 14:03 | CARD ---
APPROVED REPORT EKG Measurement Heart [id number] <Conclusion> Normal sinus rhythm Normal ECG
--- NOTE | 2017-04-07 15:23 | CP.PCM.PN ---
Subjective - Date & Time of Evaluation Date of Evaluation: 04/07/17 Time of Evaluation: 14:10 - Subjective Subjective: patient denies chest pain. had an episode of near syncope while attempting to have a bowel movement. Objective - Vital Signs/Intake and Output Vital Signs (last 24 hours): Temp Pulse Resp BP Pulse Ox 98.5 F 68 20 115/58 L 99 04/07/17 07:50 04/07/17 12:00 04/07/17 08:35 04/07/17 14:17 04/07/17 11:59 - Medications Medications: Current Medications Aspirin (Ecotrin) 81 mg PO DAILY [facility] Last Admin: 04/07/17 10:16 Dose: 81 mg Famotidine (Pepcid) 20 mg PO BID [facility] Last Admin: 04/07/17 10:16 Dose: 20 mg Fluticasone Propionate (Flonase) 2 spr GISELA DAILY [facility] Last Admin: 04/07/17 10:27 Dose: 2 spr Furosemide (Lasix) 20 mg PO Q24H [facility] Last Admin: 04/07/17 14:17 Dose: 20 mg Heparin Sodium (Porcine) (Heparin) 5,000 units SC Q12 [facility] Last Admin: 04/07/17 10:16 Dose: 5,000 units Isosorbide Mononitrate (Imdur) 30 mg PO DAILY [facility] Last Admin: 04/07/17 10:16 Dose: 30 mg Losartan Potassium (Cozaar) 25 mg PO HS [facility] Metformin HCl (Glucophage) 1,000 mg PO DAILY [facility] Last Admin: 04/07/17 10:16 Dose: 1,000 mg Metoprolol Tartrate (Lopressor) 25 mg PO Q12 [facility] Last Admin: 04/07/17 10:20 Dose: 25 mg Ranolazine (Ranexa) 1,000 mg PO BID [facility] Last Admin: 04/07/17 10:17 Dose: 1,000 mg Rosuvastatin Calcium (Crestor) 10 mg PO HS [facility] Last Admin: 04/06/17 22:11 Dose: 10 mg Simethicone (Mylicon Chew Tab) 80 mg PO Q6H PRN PRN Reason: GI distress Last Admin: 04/07/17 08:40 Dose: 80 mg Sodium Chloride ([place] Baby Saline 30 Ml) 0 ml GISELA Q8H PRN PRN Reason: Nasal congestion Last Admin: 04/06/17 22:12 Dose: 1 spr Tamsulosin HCl (Flomax) 0.4 mg PO DAILY [facility] Last Admin: 04/07/17 10:16 Dose: 0.4 mg Ticagrelor (Brilinta) 90 mg PO BID [facility] Last Admin: 04/07/17 10:16 Dose: 90 mg - Labs Labs: 04/07/17 10:20 04/07/17 07:29 - Constitutional Appears: Non-toxic - Head Exam Head Exam: NORMAL INSPECTION - Eye Exam Eye Exam: Normal appearance - ENT Exam ENT Exam: Mucous Membranes Moist - Neck Exam Neck Exam: Full ROM - Respiratory Exam Respiratory Exam: NORMAL BREATHING PATTERN - Cardiovascular Exam Cardiovascular Exam: REGULAR RHYTHM - GI/Abdominal Exam GI & Abdominal Exam: Normal Bowel Sounds - Rectal Exam Rectal Exam: Deferred - Extremities Exam Extremities Exam: absent: Pedal Edema - Back Exam Back Exam: NORMAL INSPECTION - Neurological Exam Neurological Exam: Alert - Psychiatric Exam Psychiatric exam: Normal Affect - Skin Skin Exam: Normal Color Assessment and Plan (1) Hypercholesteremia Assessment & Plan: statin therapy Status: Acute (2) CAD (coronary atherosclerotic disease) Assessment & Plan: continue Brilinta/ASA therapy Status: Acute (3) Hypertensive emergency Assessment & Plan: blood pressure is controlled Status: Acute (4) DM2 (diabetes mellitus, type 2) Assessment & Plan: continue blood glucose control. Status: Chronic
[2017-04-07] MEDS: Sodium Chloride Nasal 0.65% Soln (30ml) NAS PRN (18:10)
[2017-04-08 07:33] LABS: BASO # 0.1 K/uL (0.0-0.2); BASO % 0.7 % (0.0-2.0); EOS # 0.2 K/uL (0.0-0.7); EOS % 2.2 % (0.0-4.0); HEMATOCRIT 23.8 % (35.0-51.0); LYMPH # 1.4 K/uL (1.0-4.3); LYMPH % 16.5 % (20.0-40.0); MEAN CELL VOLUME 90.4 fL (80.0-94.0); MEAN CORPUSCULAR HEMOGLOBIN 30.5 pg (27.0-31.0); MEAN CORPUSCULAR HGB CONC 33.7 g/dL (33.0-37.0); MEAN PLATELET VOLUME 11.5 fL (7.2-11.7); MONO # 0.8 K/uL (0.0-0.8); MONO % 9.7 % (0.0-10.0); RED CELL DISTRIBUTION WIDTH 13.4 % (11.5-14.5); WHITE BLOOD COUNT 8.4 K/uL (4.8-10.8)
[2017-04-08 07:58] LABS: CHLORIDE 101 mmol/L (98-107)
[2017-04-08 07:59] LABS: POTASSIUM 3.8 mmol/L (3.6-5.2); SODIUM 133 mmol/L (132-148)
[2017-04-08 08:01] LABS: ALB/GLOB RATIO 1.3 (1.0-2.1); ALKALINE PHOSPHATASE 54 U/L (38-126); ALT/SGPT 25 U/L (21-72); AST/SGOT 29 U/L (17-59); BILIRUBIN,TOTAL 0.7 mg/dL (0.2-1.3); BLOOD UREA NITROGEN 37 mg/dL (9-20); CARBON DIOXIDE 24 mmol/L (22-30); GFR AFRICAN-AMERICAN > 60; GLUCOSE,RANDOM 93 mg/dL (75-110); TOTAL PROTEIN 5.7 g/dL (6.3-8.3)
[2017-04-08 08:02] LABS: CALCIUM 8.3 mg/dl (8.6-10.4); MAGNESIUM 1.7 mg/dL (1.6-2.3)
--- NOTE | 2017-04-08 10:05 | CP.PCM.PN ---
Addendum entered and electronically signed by Ta Davey DO 04/08/17 14:48: Spoke with Dr. Farr, Cardiology. He was made aware of EGD order for pt. Anesthesia had asked for cardiac clearance prior to EGD. Dr. Farr stated this pt is low cardiac risk for EGD. Original Note: <Ta Davey - Last Filed: 04/08/17 14:41> Subjective - Date & Time of Evaluation Date of Evaluation: 04/08/17 Time of Evaluation: 10:02 - Subjective Subjective: PGY-1 Medicine Progress Note Patient was seen and examined at bedside. Nursing reports no acute events overnight. He is found resting comfortably in bed. AM labs show Hgb continues to drop, so we will consult GI. Pt denies chest pain, palpitations, dizziness, abdominal pain, N/V/D/C, vincent blood in stool, hematuria, or hematemesis. Objective - Vital Signs/Intake and Output Vital Signs (last 24 hours): Temp Pulse Resp BP Pulse Ox 98.3 F 74 20 136/52 L 100 04/08/17 07:10 04/08/17 08:00 04/08/17 07:10 04/08/17 07:10 04/08/17 07:10 - Medications Medications: Current Medications Aspirin (Ecotrin) 81 mg PO DAILY [facility] Last Admin: 04/07/17 10:16 Dose: 81 mg Famotidine (Pepcid) 20 mg PO BID [facility] Last Admin: 04/07/17 18:09 Dose: 20 mg Fluticasone Propionate (Flonase) 2 spr GISELA DAILY [facility] Last Admin: 04/07/17 10:27 Dose: 2 spr Furosemide (Lasix) 20 mg PO Q24H [facility] Last Admin: 04/07/17 14:17 Dose: 20 mg Heparin Sodium (Porcine) (Heparin) 5,000 units SC Q12 [facility] Last Admin: 04/07/17 22:49 Dose: 5,000 units Isosorbide Mononitrate (Imdur) 30 mg PO DAILY [facility] Last Admin: 04/07/17 10:16 Dose: 30 mg Losartan Potassium (Cozaar) 25 mg PO HS [facility] Last Admin: 04/07/17 22:48 Dose: 25 mg Metformin HCl (Glucophage) 1,000 mg PO DAILY [facility] Last Admin: 04/07/17 10:16 Dose: 1,000 mg Metoprolol Tartrate (Lopressor) 25 mg PO Q12 [facility] Last Admin: 04/07/17 22:48 Dose: 25 mg Ranolazine (Ranexa) 1,000 mg PO BID [facility] Last Admin: 04/07/17 18:10 Dose: 1,000 mg Rosuvastatin Calcium (Crestor) 10 mg PO HS [facility] Last Admin: 04/07/17 22:48 Dose: 10 mg Simethicone (Mylicon Chew Tab) 80 mg PO Q6H PRN PRN Reason: GI distress Last Admin: 04/07/17 18:14 Dose: 80 mg Sodium Chloride ([place] Baby Saline 30 Ml) 0 ml GISELA Q8H PRN PRN Reason: Nasal congestion Last Admin: 04/07/17 18:10 Dose: 1 spr Tamsulosin HCl (Flomax) 0.4 mg PO DAILY [facility] Last Admin: 04/07/17 10:16 Dose: 0.4 mg Ticagrelor (Brilinta) 90 mg PO BID [facility] Last Admin: 04/07/17 18:10 Dose: 90 mg - Labs Labs: 04/08/17 07:27 04/08/17 07:27 - Constitutional Appears: Non-toxic, No Acute Distress - Head Exam Head Exam: ATRAUMATIC, NORMAL INSPECTION, NORMOCEPHALIC - Eye Exam Eye Exam: EOMI, Normal appearance Pupil Exam: PERRL - ENT Exam ENT Exam: Mucous Membranes Moist, Normal Exam - Neck Exam Neck Exam: Full ROM. absent: Tenderness - Respiratory Exam Respiratory Exam: Clear to Ausculation Bilateral, NORMAL BREATHING PATTERN. absent: Accessory Muscle Use, Rales, Rhonchi, Wheezes - Cardiovascular Exam Cardiovascular Exam: REGULAR RHYTHM, +S1, +S2 - GI/Abdominal Exam GI & Abdominal Exam: Soft, Normal Bowel Sounds. absent: Tenderness - Rectal Exam Rectal Exam: Hemorrhoids. absent: Black Stool - Extremities Exam Extremities Exam: Normal Inspection. absent: Pedal Edema, Tenderness - Neurological Exam Neurological Exam: Alert, Awake, Oriented x3 - Psychiatric Exam Psychiatric exam: Normal Affect, Normal Mood - Skin Skin Exam: Dry, Normal Color, Warm Assessment and Plan - Assessment and Plan (Free Text) Plan: Acute Anemia Hgb 12.7 on admission, 8.0 on AM labs No vincent bleeding Dr. Fair consulted, GI: help appreciated CLD this evening, with NPO except meds after midnight Type and cross -Transfuse one unit PRBCs Chest Pain Resolved Admitted on Tele KOLBY negative x 3 EKG: Rate 77 bpm; No ST/T wave changes x 3 CXR (04/04): Mild venous congestion. Patchy bibasilar airspace opacities. Biapical pleural thickening w upper lobe granulomatous changes. (see full report ) ASA 325 mg PO given in field - ASA 81mg PO Daily Continue home meds: Brilinta 90mg PO Daily Continue Losartan 25 mg HS Lopressor 25 mg PO Q12H O2 2L PRN ECHO (01/14/17): EF 65% WNL, LV normal size, mild concentric LVH, LV function normal TSH/free T4: WNL Lipid panel: WNL Cardiology consult: Dr. Farr, help appreciated - Increase Ranexa to 1000mg BID, add Losartan 25mg Daily Headache Resolved CT Head (04/05/17): No intracranial bleed. (see full report) Nasal congestion Hx of Afrin use for "years" Flonase INH Daily [place] PRN T2DM Accuchecks continue home Metformin 1000mg PO Daily A1C: 5.9 HTN Elevated at presentation, now normotensive with med changes Restart home meds: Lopressor 25mg PO Q12 Lasix 20mg PO Q24H Imdur 30mg PO Daily Losartan 25mg PO HS - moved to before bed to space out BP meds Hypokalemia Resolved BPH Continue Flomax 0.4 mg PO HS CAD Crestor 10mg PO HS Prophylaxis SCDs Heparin 5000u Q12H Pepcid 20mg PO BID [facility] Davey, PGY-1 <Bill Simpson H - Last Filed: 04/08/17 15:44> Objective - Vital Signs/Intake and Output Vital Signs (last 24 hours): Temp Pulse Resp BP Pulse Ox 98.7 F 72 18 137/55 L 97 04/08/17 14:59 04/08/17 14:59 04/08/17 14:59 04/08/17 14:59 04/08/17 13:57 Intake and Output: 04/08/17 04/08/17 06:59 18:59 Intake Total 0 Balance 0 - Medications Medications: Current Medications Aspirin (Ecotrin) 81 mg PO DAILY [facility] Last Admin: 04/08/17 10:12 Dose: Not Given Fluticasone Propionate (Flonase) 2 spr GISELA DAILY [facility] Last Admin: 04/08/17 10:39 Dose: 2 spr Furosemide (Lasix) 20 mg PO Q24H [facility] Last Admin: 04/08/17 14:10 Dose: 20 mg Heparin Sodium (Porcine) (Heparin) 5,000 units SC Q12 [facility] Last Admin: 04/08/17 10:12 Dose: Not Given Isosorbide Mononitrate (Imdur) 30 mg PO DAILY [facility] Last Admin: 04/08/17 10:38 Dose: 30 mg Losartan Potassium (Cozaar) 25 mg PO HS [facility] Last Admin: 04/07/17 22:48 Dose: 25 mg Metformin HCl (Glucophage) 1,000 mg PO DAILY [facility] Last Admin: 04/08/17 10:39 Dose: 1,000 mg Metoprolol Tartrate (Lopressor) 25 mg PO Q12 [facility] Last Admin: 04/08/17 10:39 Dose: 25 mg Pantoprazole Sodium (Protonix Inj) 40 mg IVP Q12H [facility] Last Admin: 04/08/17 13:09 Dose: 40 mg Ranolazine (Ranexa) 1,000 mg PO BID [facility] Last Admin: 04/08/17 10:38 Dose: 1,000 mg Rosuvastatin Calcium (Crestor) 10 mg PO HS [facility] Last Admin: 04/07/17 22:48 Dose: 10 mg Simethicone (Mylicon Chew Tab) 80 mg PO Q6H PRN PRN Reason: GI distress Last Admin: 04/07/17 18:14 Dose: 80 mg Sodium Chloride ([place] Baby Saline 30 Ml) 0 ml GISELA Q8H PRN PRN Reason: Nasal congestion Last Admin: 04/07/17 18:10 Dose: 1 spr Tamsulosin HCl (Flomax) 0.4 mg PO DAILY [facility] Last Admin: 04/08/17 10:39 Dose: 0.4 mg Ticagrelor (Brilinta) 90 mg PO BID [facility] Last Admin: 04/08/17 10:14 Dose: Not Given - Labs Labs: 04/08/17 07:27 04/08/17 07:27 Attending/Attestation - Attestation I have personally seen and examined this patient.: Yes I have fully participated in the care of the patient.: Yes I have reviewed all pertinent clinical information, including history, physical exam and plan: Yes Notes (Text): Medical attending: Patient was seen and examined by me, agrees the above note by medical claims assistant. The patient's hemoglobin did drop to 8. GIs plan for endoscopy however before this could be done 1 unit of PRBCs later tonight. Patient's family member was also present including his son who we gave him an update. When we saw the patient today he denied having any chest pain or abdominal pain. He did have a bowel movement he says that did not appear to be bloody to him. thank you Bill Simpson
[2017-04-08] MEDS: Ranolazine 500 mg Extended Release Tablets PO SCH ×2 (10:38→19:14)
[2017-04-08] MEDS: Fluticasone Nasal 50 mcg/Spray NAS SCH (10:39)
--- NOTE | 2017-04-08 11:53 | CARD ---
APPROVED REPORT EKG Measurement Heart [id number] <Conclusion> Normal sinus rhythm Normal ECG
--- NOTE | 2017-04-08 16:45 | CP.PCM.CON ---
History of Present Illness - History of Present Illness History of Present Illness: This is a 76 year old man admitted 04/06/2017 with chest pain. Gastroenterology consult requested for a drop in hemoglobin. Patient had cardiac cath with stent placement in to the left main coronary artery 01/25/2017. Since then, he has been on ASA and Brilinita. Patient was admitted 04/06/2017 with pressure-like chest pain on the day of admission. On admission, the HGB was 12.7. When repeated on 04/07, it was 8.8 and 9.3, and today, it was 8.0. Patient states that the stool yesterday was small and dark. Today, he did not have a bowel movement. He denies having nausea, vomiting, difficulty swallowing, diarrhea, rectal bleeding. He has occasional burning in the throat. He tends to be constipated. He also complains of upper abdominal cramping pain. Review of Systems - Review of Systems All systems: reviewed and no additional remarkable complaints except - EENT Eyes: absent: Change in Vision Ears: absent: Decreased Hearing Nose/Mouth/Throat: absent: Sore Throat - Cardiovascular Cardiovascular: Chest Pain, Lightheadedness. absent: Dyspnea - Respiratory Respiratory: absent: Cough, Dyspnea - Gastrointestinal Gastrointestinal: Abdominal Pain, Constipation, Heartburn, Melena. 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) - HEENT Hx HEENT Problems: Yes - RENAL Hx Chronic Kidney Disease: No - ENDOCRINE/METABOLIC Hx Endocrine Disorders: Yes Hx Diabetes Mellitus Type 2: Yes - HEMATOLOGICAL/ONCOLOGICAL Hx Blood Disorders: No Hx AIDS: No Hx Human Immunodeficiency Virus (HIV): No - INTEGUMENTARY Hx Dermatological Problems: No - MUSCULOSKELETAL/RHEUMATOLOGICAL Hx Arthritis: Yes - GASTROINTESTINAL Hx Gastrointestinal Disorders: No - GENITOURINARY/GYNECOLOGICAL Hx Genitourinary Disorders: No - PSYCHIATRIC Hx Substance Use: No - SURGICAL HISTORY Hx Appendectomy: Yes (1960) - ANESTHESIA Hx Anesthesia: Yes Hx Anesthesia Reactions: No Hx Malignant Hyperthermia: No Meds Allergies/Adverse Reactions: Allergies Allergy/AdvReac Type Severity Reaction Status Date / Time No Known Allergies Allergy Verified 04/04/17 23:48 - Medications Medications: Current Medications Aspirin (Ecotrin) 81 mg PO DAILY [facility] Last Admin: 04/08/17 10:12 Dose: Not Given Fluticasone Propionate (Flonase) 2 spr GISELA DAILY [facility] Last Admin: 04/08/17 10:39 Dose: 2 spr Furosemide (Lasix) 20 mg PO Q24H [facility] Last Admin: 04/08/17 14:10 Dose: 20 mg Heparin Sodium (Porcine) (Heparin) 5,000 units SC Q12 [facility] Last Admin: 04/08/17 10:12 Dose: Not Given Isosorbide Mononitrate (Imdur) 30 mg PO DAILY [facility] Last Admin: 04/08/17 10:38 Dose: 30 mg Losartan Potassium (Cozaar) 25 mg PO HS [facility] Last Admin: 04/07/17 22:48 Dose: 25 mg Metformin HCl (Glucophage) 1,000 mg PO DAILY [facility] Last Admin: 04/08/17 10:39 Dose: 1,000 mg Metoprolol Tartrate (Lopressor) 25 mg PO Q12 [facility] Last Admin: 04/08/17 10:39 Dose: 25 mg Pantoprazole Sodium (Protonix Inj) 40 mg IVP Q12H [facility] Last Admin: 04/08/17 13:09 Dose: 40 mg Ranolazine (Ranexa) 1,000 mg PO BID [facility] Last Admin: 04/08/17 10:38 Dose: 1,000 mg Rosuvastatin Calcium (Crestor) 10 mg PO [facility] Last Admin: 04/07/17 22:48 Dose: 10 mg Simethicone (Mylicon Chew Tab) 80 mg PO Q6H PRN PRN Reason: GI distress Last Admin: 04/07/17 18:14 Dose: 80 mg Sodium Chloride ([place] Baby Saline 30 Ml) 0 ml GISELA Q8H PRN PRN Reason: Nasal congestion Last Admin: 04/07/17 18:10 Dose: 1 spr Tamsulosin HCl (Flomax) 0.4 mg PO DAILY [facility] Last Admin: 04/08/17 10:39 Dose: 0.4 mg Ticagrelor (Brilinta) 90 mg PO BID [facility] Last Admin: 04/08/17 10:14 Dose: Not Given Physical Exam - Constitutional Appears: No Acute Distress - Eye Exam Eye Exam: EOMI, PERRL - Neck Exam Neck exam: Negative for: Lymphadenopathy, Thyromegaly - Respiratory Exam Respiratory Exam: NORMAL BREATHING PATTERN. absent: Rales, Rhonchi, Wheezes - Cardiovascular Exam Cardiovascular Exam: REGULAR RHYTHM, +S1, +S2. absent: Gallop, Rubs, Systolic Murmur - GI/Abdominal Exam GI & Abdominal Exam: Normal Bowel Sounds, Soft. absent: Mass, Organomegaly, Tenderness - Rectal Exam Rectal Exam: Deferred - Extremities Exam Extremities exam: Negative for: calf tenderness, pedal edema Results - Vital Signs Recent Vital Signs: Last Vital Signs Temp 98.4 F 04/08/17 15:29 Pulse 63 04/08/17 15:29 Resp 20 04/08/17 15:29 BP 139/61 04/08/17 15:29 Pulse Ox 97 04/08/17 13:57 - Labs Result Diagrams: 04/08/17 07:27 04/08/17 07:27 Labs: Laboratory Results - last 24 hr 04/07/17 04/07/17 04/08/17 16:49 21:21 06:18 WBC RBC Hgb Hct MCV MCH MCHC RDW Plt Count MPV Neut % (Auto) Lymph % (Auto) [place] % (Auto) Eos % (Auto) Baso % (Auto) Neut # Lymph # [place] # Eos # Baso # Sodium Potassium Chloride Carbon Dioxide Anion Gap BUN Creatinine Est GFR ( Amer) Est GFR (Non-Af Amer) POC Glucose (mg/dL) 110 121 H 121 H Random Glucose Calcium Phosphorus Magnesium Total Bilirubin AST ALT Alkaline Phosphatase Total Protein Albumin Globulin Albumin/Globulin Ratio Blood Type Antibody Screen 04/08/17 04/08/17 04/08/17 07:27 07:27 10:48 WBC 8.4 RBC 2.63 L Hgb 8.0 L Hct 23.8 L MCV 90.4 MCH 30.5 MCHC 33.7 RDW 13.4 Plt Count 139 MPV 11.5 Neut % (Auto) 70.9 Lymph % (Auto) 16.5 L [place] % (Auto) 9.7 Eos % (Auto) 2.2 Baso % (Auto) 0.7 Neut # 6.0 Lymph # 1.4 [place] # 0.8 Eos # 0.2 Baso # 0.1 Sodium 133 Potassium 3.8 Chloride 101 Carbon Dioxide 24 Anion Gap 11 BUN 37 H Creatinine 1.1 Est GFR ( Amer) > 60 Est GFR (Non-Af Amer) > 60 POC Glucose (mg/dL) Random Glucose 93 Calcium 8.3 L Phosphorus 3.0 Magnesium 1.7 Total Bilirubin 0.7 AST 29 ALT 25 Alkaline Phosphatase 54 Total Protein 5.7 L Albumin 3.2 L Globulin 2.5 Albumin/Globulin Ratio 1.3 Blood Type B POSITIVE Antibody Screen Negative 04/08/17 11:56 WBC RBC Hgb Hct MCV MCH MCHC RDW Plt Count MPV Neut % (Auto) Lymph % (Auto) [place] % (Auto) Eos % (Auto) Baso % (Auto) Neut # Lymph # [place] # Eos # Baso # Sodium Potassium Chloride Carbon Dioxide Anion Gap BUN Creatinine Est GFR ( Amer) Est GFR (Non-Af Amer) POC Glucose (mg/dL) 121 H Random Glucose Calcium Phosphorus Magnesium Total Bilirubin AST ALT Alkaline Phosphatase Total Protein Albumin Globulin Albumin/Globulin Ratio Blood Type Antibody Screen Assessment & Plan (1) Anemia due to blood loss, acute Assessment and Plan: Patient experienced a drop in HGB from 12.7 to 8.0 without vincent rectal bleeding. The stool yesterday was dark, but small. Will schedule EGD for tomorrow (postponed by anesthesia because he ate breakfast). Recommend CT scan to rule out retroperitoneal bleeding. Transfuse one unit PRBC. Status: Acute
[2017-04-08] MEDS: Sodium Chloride Nasal 0.65% Soln (30ml) NAS PRN (19:13)
[2017-04-08] MEDS: Simethicone 80 mg Chewtab PO PRN (19:14)
--- NOTE | 2017-04-08 19:27 | CP.PCM.PN ---
Subjective - Date & Time of Evaluation Date of Evaluation: 04/08/17 Time of Evaluation: 19:00 - Subjective Subjective: no cardiovascular contraindication to endoscopy Objective - Vital Signs/Intake and Output Vital Signs (last 24 hours): Temp Pulse Resp BP Pulse Ox 98.2 F 69 20 146/57 L 97 04/08/17 17:53 04/08/17 17:53 04/08/17 17:53 04/08/17 17:53 04/08/17 13:57 Intake and Output: 04/08/17 04/09/17 18:59 06:59 Intake Total 775 Balance 775 - Medications Medications: Current Medications Aspirin (Ecotrin) 81 mg PO DAILY [facility] Last Admin: 04/08/17 10:12 Dose: Not Given Fluticasone Propionate (Flonase) 2 spr GISELA DAILY [facility] Last Admin: 04/08/17 10:39 Dose: 2 spr Furosemide (Lasix) 20 mg PO Q24H [facility] Last Admin: 04/08/17 14:10 Dose: 20 mg Heparin Sodium (Porcine) (Heparin) 5,000 units SC Q12 [facility] Last Admin: 04/08/17 10:12 Dose: Not Given Isosorbide Mononitrate (Imdur) 30 mg PO DAILY [facility] Last Admin: 04/08/17 10:38 Dose: 30 mg Losartan Potassium (Cozaar) 25 mg PO HS [facility] Last Admin: 04/07/17 22:48 Dose: 25 mg Metformin HCl (Glucophage) 1,000 mg PO DAILY [facility] Last Admin: 04/08/17 10:39 Dose: 1,000 mg Metoprolol Tartrate (Lopressor) 25 mg PO Q12 [facility] Last Admin: 04/08/17 10:39 Dose: 25 mg Pantoprazole Sodium (Protonix Inj) 40 mg IVP Q12H [facility] Last Admin: 04/08/17 13:09 Dose: 40 mg Ranolazine (Ranexa) 1,000 mg PO BID [facility] Last Admin: 04/08/17 19:14 Dose: 1,000 mg Rosuvastatin Calcium (Crestor) 10 mg PO HS [facility] Last Admin: 04/07/17 22:48 Dose: 10 mg Simethicone (Mylicon Chew Tab) 80 mg PO Q6H PRN PRN Reason: GI distress Last Admin: 04/08/17 19:14 Dose: 80 mg Sodium Chloride ([place] Baby Saline 30 Ml) 0 ml GISELA Q8H PRN PRN Reason: Nasal congestion Last Admin: 04/08/17 19:13 Dose: 1 spr Tamsulosin HCl (Flomax) 0.4 mg PO DAILY [facility] Last Admin: 04/08/17 10:39 Dose: 0.4 mg Ticagrelor (Brilinta) 90 mg PO BID [facility] Last Admin: 04/08/17 10:14 Dose: Not Given - Labs Labs: 04/08/17 07:27 04/08/17 07:27 Assessment and Plan (1) Hypercholesteremia Status: Acute (2) CAD (coronary atherosclerotic disease) Status: Acute (3) Hypertensive emergency Status: Acute (4) DM2 (diabetes mellitus, type 2) Status: Chronic
--- NOTE | 2017-04-08 21:03 | CT ---
EXAM: CT Abdomen and Pelvis Without Intravenous Contrast CLINICAL HISTORY: 76 years old, male; Pain; Abdominal pain; Generalized; Additional info: Acute drop in hemoglobin, retroperitoneal hematoma TECHNIQUE: Axial computed tomography images of the abdomen and pelvis without intravenous contrast. This CT exam was performed using one or more of the following dose reduction techniques: automated exposure control, adjustment of the mA and/or kV according to patient size, and/or use of iterative reconstruction technique. Coronal and sagittal reformatted images were created and reviewed. EXAM DATE/TIME: 04/08/2017 4:56 PM COMPARISON: US - URINARY BLADDER 02/29/2016 10:09:40 AM FINDINGS: Artifacts: Streak artifact degrades image quality. Motion artifact degrades image quality. Lower thorax: Heart size is normal. There are coronary calcifications. There is atelectasis and scarring at the lung bases. ABDOMEN: Liver: unremarkable Gallbladder and bile ducts: unremarkable Pancreas: Pancreas is severely atrophic. Spleen: unremarkable Adrenals: unremarkable Kidneys and ureters: There are right renal cysts. There is a 12 mm hyperdense right renal lesion difficult to further characterize. There is a nonobstructing left lower pole renal stone. Kidneys and ureters are otherwise unremarkable. Stomach and bowel: Stomach is partially distended. Rotation is normal. There is no obstruction. Terminal ileum is unremarkable. Appendix is not visualized. There is no pericecal inflammation. Streak and motion limited evaluation of the colon. There is moderate stool in the colon. There is scattered diverticulosis. Appendix: See stomach and bowel PELVIS: Bladder: The bladder is partially distended. There is mild bladder wall thickening. Reproductive: The prostate is enlarged. There is mild prominence of the seminal vesicles. ABDOMEN and PELVIS: Intraperitoneal space: There is no free air or free fluid. Bones/joints: Bony structures are osteopenic.There are degenerative changes in the osseus structures. There is ankylosis of the sacroiliac joints. There are bridging syndesmophytes in the lower thoracic spine. There is syndesmophytes and bulky osteophytes in the lumbar spine. There is ankylosis occasional costovertebral articulations. There is partial ankylosis of spinous processes. Soft tissues: Psoas and paraspinous muscles are symmetric. There is no retroperitoneal hematoma. There is no abdominal wall hematoma. Vasculature: There are vascular calcifications. Lymph nodes: There is no pathologic adenopathy. IMPRESSION: No acute solid visceral or bowel abnormality; severely atrophic pancreas; osseous findings suggest ankylosing spondylitis; no retroperitoneal hematoma; enlarged prostate with mild bladder wall thickening Additional findings as described above.
[2017-04-08 21:17] LABS: IRON 133 ug/dL (49-181)
[2017-04-09 04:20] LABS: BASO % 0.5 % (0.0-2.0); EOS # 0.2 K/uL (0.0-0.7); EOS % 2.1 % (0.0-4.0); HEMATOCRIT 25.4 % (35.0-51.0); LYMPH # 1.5 K/uL (1.0-4.3); LYMPH % 17.8 % (20.0-40.0); MEAN CELL VOLUME 89.1 fL (80.0-94.0); MEAN CORPUSCULAR HEMOGLOBIN 30.7 pg (27.0-31.0); MEAN CORPUSCULAR HGB CONC 34.5 g/dL (33.0-37.0); MEAN PLATELET VOLUME 10.6 fL (7.2-11.7); MONO # 0.8 K/uL (0.0-0.8); MONO % 9.9 % (0.0-10.0); RED CELL DISTRIBUTION WIDTH 13.6 % (11.5-14.5); WHITE BLOOD COUNT 8.5 K/uL (4.8-10.8)
[2017-04-09 04:28] LABS: INR 1.1
[2017-04-09 04:34] LABS: CHLORIDE 98 mmol/L (98-107); POTASSIUM 3.5 mmol/L (3.6-5.2); SODIUM 130 mmol/L (132-148)
[2017-04-09 04:36] LABS: GFR AFRICAN-AMERICAN > 60
[2017-04-09 04:37] LABS: ALKALINE PHOSPHATASE 58 U/L (38-126); ALT/SGPT 31 U/L (21-72); AST/SGOT 25 U/L (17-59); BLOOD UREA NITROGEN 22 mg/dL (9-20); CARBON DIOXIDE 22 mmol/L (22-30); GLUCOSE,RANDOM 80 mg/dL (75-110); PHOSPHOROUS 3.3 mg/dL (2.5-4.5); TOTAL PROTEIN 5.7 g/dL (6.3-8.3)
[2017-04-09 04:38] LABS: MAGNESIUM 1.5 mg/dL (1.6-2.3)
[2017-04-09] MEDS ORDERED: Magnesium Sulfate 1 gm in D5W 1 GM/100 ML BAG IVPB SCH (05:00)
[2017-04-09] MEDS ORDERED: Dextrose 5%/0.9% NS 1,000 ML IV SCH (08:30)
--- NOTE | 2017-04-09 09:00 | CP.PCM.PN ---
<Ta Davey - Last Filed: 04/09/17 17:53> Subjective - Date & Time of Evaluation Date of Evaluation: 04/09/17 Time of Evaluation: 08:57 - Subjective Subjective: PGY-1 Medicine Progress Note Patient was seen and examined at bedside. Pt was transfused one unit of PRBCs yesterday, without issue. Pt states he feels "better" today after getting transfusion. He is found resting comfortably in bed. Pt is NPO for EGD this afternoon with Dr. Fair. AM labs show Hgb is 8.8 after transfusion. Pt denies chest pain, palpitations, dizziness, abdominal pain, N/V/D/C, vincent blood in stool, hematuria, or hematemesis. Objective - Vital Signs/Intake and Output Vital Signs (last 24 hours): Temp Pulse Resp BP Pulse Ox 98.7 F 64 18 167/70 H 98 04/09/17 07:10 04/09/17 07:10 04/09/17 07:10 04/09/17 07:10 04/09/17 07:10 Intake and Output: 04/09/17 04/09/17 06:59 18:59 Intake Total 825 Balance 825 - Medications Medications: Current Medications Aspirin (Ecotrin) 81 mg PO DAILY [facility] Last Admin: 04/08/17 10:12 Dose: Not Given Fluticasone Propionate (Flonase) 2 spr GISELA DAILY [facility] Last Admin: 04/08/17 10:39 Dose: 2 spr Furosemide (Lasix) 20 mg PO Q24H [facility] Last Admin: 04/08/17 14:10 Dose: 20 mg Heparin Sodium (Porcine) (Heparin) 5,000 units SC Q12 [facility] Last Admin: 04/08/17 10:12 Dose: Not Given Dextrose/Sodium Chloride (Dextrose 5%/0.9% Ns 1000 Ml) 1,000 mls @ 40 mls/hr IV .Q24H [facility] Isosorbide Mononitrate (Imdur) 30 mg PO DAILY [facility] Last Admin: 04/08/17 10:38 Dose: 30 mg Losartan Potassium (Cozaar) 25 mg PO HS [facility] Last Admin: 04/08/17 22:37 Dose: 25 mg Metformin HCl (Glucophage) 1,000 mg PO DAILY [facility] Last Admin: 04/08/17 10:39 Dose: 1,000 mg Metoprolol Tartrate (Lopressor) 25 mg PO Q12 [facility] Last Admin: 04/08/17 22:37 Dose: 25 mg Pantoprazole Sodium (Protonix Inj) 40 mg IVP Q12H [facility] Last Admin: 04/09/17 00:08 Dose: 40 mg Ranolazine (Ranexa) 1,000 mg PO BID [facility] Last Admin: 04/08/17 19:14 Dose: 1,000 mg Rosuvastatin Calcium (Crestor) 10 mg PO HS [facility] Last Admin: 04/08/17 22:37 Dose: 10 mg Simethicone (Mylicon Chew Tab) 80 mg PO Q6H PRN PRN Reason: GI distress Last Admin: 04/08/17 19:14 Dose: 80 mg Sodium Chloride ([place] Baby Saline 30 Ml) 0 ml GISELA Q8H PRN PRN Reason: Nasal congestion Last Admin: 04/08/17 19:13 Dose: 1 spr Tamsulosin HCl (Flomax) 0.4 mg PO DAILY [facility] Last Admin: 04/08/17 10:39 Dose: 0.4 mg Ticagrelor (Brilinta) 90 mg PO BID [facility] Last Admin: 04/08/17 10:14 Dose: Not Given - Labs Labs: 04/09/17 04:14 04/09/17 04:14 PT 11.9 SECONDS (9.7-12.2) 04/09/17 04:14 INR 1.1 04/09/17 04:14 APTT 28 SECONDS (21-34) 04/09/17 04:14 - Additional Findings Additional findings: - Constitutional Appears: Non-toxic, No Acute Distress - Head Exam Head Exam: ATRAUMATIC, NORMAL INSPECTION, NORMOCEPHALIC - Eye Exam Eye Exam: EOMI, Normal appearance, no pallor Pupil Exam: PERRL - ENT Exam ENT Exam: Mucous Membranes Moist, Normal Exam - Neck Exam Neck Exam: Full ROM. absent: Tenderness - Respiratory Exam Respiratory Exam: Clear to Auscultation Bilateral, NORMAL BREATHING PATTERN. absent: Accessory Muscle Use, Rales, Rhonchi, Wheezes - Cardiovascular Exam Cardiovascular Exam: REGULAR RHYTHM, +S1, +S2 - GI/Abdominal Exam GI & Abdominal Exam: Soft, Normal Bowel Sounds. absent: Tenderness - Extremities Exam Extremities Exam: Normal Inspection. absent: Pedal Edema, Tenderness - New IV in hand noted - Neurological Exam Neurological Exam: Alert, Awake, Oriented x3 - Psychiatric Exam Psychiatric exam: Normal Affect, Normal Mood - Skin Skin Exam: Dry, Normal Color, Warm Assessment and Plan - Assessment and Plan (Free Text) Plan: Acute Anemia Hgb 12.7 on admission, 8.0 yesterday on AM labs -Transfuse one unit PRBCs - CBC post-transfusion: Hgb 8.8 - f/u tomorrow AM H/H Dr. Fair consulted, GI: help appreciated - NPO except meds - EGD today - CT ABD/Pelvis (04/09/17): Ankylosing spondylitis. Atrophic pancreas. No retroperitoneal hemorrhage (summary, see full report) Chest Pain -Resolved Admitted on Tele KOLBY negative x 3 EKG: Rate 77 bpm; No ST/T wave changes x 3 CXR (04/04): Mild venous congestion. Patchy bibasilar airspace opacities. Biapical pleural thickening w upper lobe granulomatous changes. (see full report ) ASA 325 mg PO given in field - ASA 81mg PO Daily Continue home meds: Brilinta 90mg PO BID Continue Losartan 25 mg HS Lopressor 25 mg PO Q12H O2 2L PRN ECHO (01/14/17): EF 65% WNL, LV normal size, mild concentric LVH, LV function normal TSH/free T4: WNL Lipid panel: WNL Cardiology consult: Dr. Farr, help appreciated - Increase Ranexa to 1000mg BID, add Losartan 25mg Daily Headache Resolved CT Head (04/05/17): No intracranial bleed. (see full report) Nasal congestion Hx of Afrin use for "years" Flonase INH Daily [place] PRN T2DM Accuchecks continue home Metformin 1000mg PO Daily A1C: 5.9 HTN Elevated at presentation, now normotensive with med changes Restart home meds: Lopressor 25mg PO Q12 Lasix 20mg PO Q24H Imdur 30mg PO Daily Losartan 25mg PO HS - moved to before bed to space out BP meds Hypokalemia Resolved BPH Continue Flomax 0.4 mg PO HS CAD Crestor 10mg PO HS Prophylaxis SCDs Heparin 5000u Q12H Pepcid 20mg PO BID DW Dr. Tatiana Davey, PGY-1 <Bill Simpson H - Last Filed: 04/10/17 07:33> Objective - Vital Signs/Intake and Output Vital Signs (last 24 hours): Temp Pulse Resp BP Pulse Ox 98.9 F 60 20 138/53 L 98 04/09/17 23:00 04/10/17 05:35 04/10/17 05:35 04/10/17 05:35 04/10/17 05:35 Intake and Output: 04/10/17 04/10/17 06:59 18:59 Output Total 1000 Balance -1000 - Medications Medications: Current Medications Aspirin (Ecotrin) 81 mg PO DAILY [facility] Last Admin: 04/08/17 10:12 Dose: Not Given Fluticasone Propionate (Flonase) 2 spr GISELA DAILY [facility] Last Admin: 04/09/17 10:15 Dose: 2 spr Furosemide (Lasix) 20 mg PO Q24H [facility] Last Admin: 04/09/17 14:12 Dose: Not Given Heparin Sodium (Porcine) (Heparin) 5,000 units SC Q12 [facility] Last Admin: 04/08/17 10:12 Dose: Not Given Dextrose/Sodium Chloride (Dextrose 5%/0.9% Ns 1000 Ml) 1,000 mls @ 40 mls/hr IV .Q24H [facility] Last Admin: 04/09/17 09:11 Dose: 40 mls/hr Lactated Ringer's (Lactated Ringer's 500ml) 500 mls @ 75 mls/hr IV .Q6H40M [facility] Last Admin: 04/09/17 22:16 Dose: Not Given Isosorbide Mononitrate (Imdur) 30 mg PO DAILY [facility] Last Admin: 04/09/17 10:14 Dose: 30 mg Losartan Potassium (Cozaar) 25 mg PO HS [facility] Last Admin: 04/09/17 22:15 Dose: 25 mg Metformin HCl (Glucophage) 1,000 mg PO DAILY [facility] Last Admin: 04/09/17 09:41 Dose: Not Given Metoprolol Tartrate (Lopressor) 25 mg PO Q12 [facility] Last Admin: 04/09/17 22:19 Dose: 25 mg Pantoprazole Sodium (Protonix Inj) 40 mg IVP Q12H [facility] Last Admin: 04/10/17 00:01 Dose: 40 mg Ranolazine (Ranexa) 1,000 mg PO BID [facility] Last Admin: 04/09/17 18:56 Dose: 1,000 mg Rosuvastatin Calcium (Crestor) 10 mg PO HS [facility] Last Admin: 04/09/17 22:15 Dose: 10 mg Simethicone (Mylicon Chew Tab) 80 mg PO Q6H PRN PRN Reason: GI distress Last Admin: 04/09/17 18:56 Dose: 80 mg Sodium Chloride ([place] Baby Saline 30 Ml) 0 ml GISELA Q8H PRN PRN Reason: Nasal congestion Last Admin: 04/09/17 18:55 Dose: 1 spr Tamsulosin HCl (Flomax) 0.4 mg PO DAILY [facility] Last Admin: 04/09/17 10:07 Dose: Not Given Ticagrelor (Brilinta) 90 mg PO BID [facility] Last Admin: 04/08/17 10:14 Dose: Not Given - Labs Labs: 04/10/17 06:28 04/10/17 06:28 PT 11.9 SECONDS (9.7-12.2) 04/09/17 04:14 INR 1.1 04/09/17 04:14 APTT 28 SECONDS (21-34) 04/09/17 04:14 Attending/Attestation - Attestation I have personally seen and examined this patient.: Yes I have fully participated in the care of the patient.: Yes I have reviewed all pertinent clinical information, including history, physical exam and plan: Yes Notes (Text): 04/10/17 07:32 Medical attending: Patient was seen and examined by me, agrees the above note by emergency medicine medical director. When we saw the patient in the morning he had not yet received his EGD. He did get a blood transfusion the previous night before his hemoglobin was now 8.8. He was doing well he did not have any complaints or concerns when we saw him. He was out of bed. Later in the day the EGD was done and the per the reported suggested that he possibly has some candidiasis, a small hernia, a 6 mm gastric ulcer, as well as some inflammation he had biopsies taken as well
[2017-04-09] MEDS: Ranolazine 500 mg Extended Release Tablets PO SCH ×2 (10:07→18:56)
[2017-04-09] MEDS: Fluticasone Nasal 50 mcg/Spray NAS SCH (10:15)
[2017-04-09] MEDS ORDERED: Propofol 10 mg/ml Inj (20 ML) ONE (14:33)
[2017-04-09] MEDS ORDERED: Etomidate 20 mg/10ml Inj IV ONE (14:33)
--- NOTE | 2017-04-09 14:43 | PCM.SURG1 ---
Surgeon's Initial Post Op Note - Surgeon's Notes Surgeon: Chito Fair MD [employer] Accountant: none Type of Anesthesia: MAC Pre-Operative Diagnosis: Melena Operative Findings: White plaques in the mid esophagus suggestive of candiiasis ; hiatal hernia; small ulcer in the proximal gastric body; erosive gastritis involving the antrum; normal duodenum Post-Operative Diagnosis: Hiatal hernia; gastric ulcer; erosive gastritis Operation Performed: EGD with biopsy; EGD with hemorrhage control using Hemostatic clips Specimen/Specimens Removed: Biopsy antrum; biopsy proximal stomach; brushings mid esophagus Estimated Blood Loss: EBL {In ML}: 1 Date of Surgery/Procedure: 04/09/17 Time of Surgery/Procedure: 14:44
[2017-04-09] MEDS ORDERED: Lactated Ringer's 500 ML IV SCH (14:45)
[2017-04-09] MEDS: Sodium Chloride Nasal 0.65% Soln (30ml) NAS PRN (18:55)
[2017-04-09] MEDS: Simethicone 80 mg Chewtab PO PRN (18:56)
[2017-04-10 06:47] LABS: CHLORIDE 102 mmol/L (98-107); SODIUM 138 mmol/L (132-148)
[2017-04-10 06:48] LABS: POTASSIUM 3.9 mmol/L (3.6-5.2)
[2017-04-10 06:50] LABS: ALKALINE PHOSPHATASE 64 U/L (38-126); ALT/SGPT 26 U/L (21-72); AST/SGOT 27 U/L (17-59); BILIRUBIN,TOTAL 0.8 mg/dL (0.2-1.3); BLOOD UREA NITROGEN 14 mg/dL (9-20); CALCIUM 8.6 mg/dl (8.6-10.4); CARBON DIOXIDE 26 mmol/L (22-30); GFR AFRICAN-AMERICAN > 60; GLUCOSE,RANDOM 90 mg/dL (75-110); PHOSPHOROUS 3.3 mg/dL (2.5-4.5); TOTAL PROTEIN 6.3 g/dL (6.3-8.3)
[2017-04-10 06:51] LABS: MAGNESIUM 1.7 mg/dL (1.6-2.3)
--- NOTE | 2017-04-10 07:02 | CP.PCM.PN ---
<Ta Davey - Last Filed: 04/10/17 09:48> Subjective - Date & Time of Evaluation Date of Evaluation: 04/10/17 Time of Evaluation: 07:00 - Subjective Subjective: PGY-1 Medicine Progress Note Patient was seen and examined at bedside. Nursing reports no acute events overnight. Pt is s/p EGD with Dr. Fair yesterday. EGD showed small ulcer in stomach which was biopsied. Will monitor AM labwork for continued blood loss. Pt denies dizziness, chest pain, palpitations, abdominal pain, N/V/D, hematemesis, vincent blood in stool, or hematuria. Objective - Vital Signs/Intake and Output Vital Signs (last 24 hours): Temp Pulse Resp BP Pulse Ox 98.9 F 60 20 138/53 L 98 04/09/17 23:00 04/10/17 05:35 04/10/17 05:35 04/10/17 05:35 04/10/17 05:35 Intake and Output: 04/09/17 04/10/17 18:59 06:59 Intake Total 340 Balance 340 - Medications Medications: Current Medications Aspirin (Ecotrin) 81 mg PO DAILY [facility] Last Admin: 04/08/17 10:12 Dose: Not Given Fluticasone Propionate (Flonase) 2 spr GISELA DAILY [facility] Last Admin: 04/09/17 10:15 Dose: 2 spr Furosemide (Lasix) 20 mg PO Q24H [facility] Last Admin: 04/09/17 14:12 Dose: Not Given Heparin Sodium (Porcine) (Heparin) 5,000 units SC Q12 [facility] Last Admin: 04/08/17 10:12 Dose: Not Given Dextrose/Sodium Chloride (Dextrose 5%/0.9% Ns 1000 Ml) 1,000 mls @ 40 mls/hr IV .Q24H [facility] Last Admin: 04/09/17 09:11 Dose: 40 mls/hr Lactated Ringer's (Lactated Ringer's 500ml) 500 mls @ 75 mls/hr IV .Q6H40M [facility] Last Admin: 04/09/17 22:16 Dose: Not Given Isosorbide Mononitrate (Imdur) 30 mg PO DAILY [facility] Last Admin: 04/09/17 10:14 Dose: 30 mg Losartan Potassium (Cozaar) 25 mg PO HS [facility] Last Admin: 04/09/17 22:15 Dose: 25 mg Metformin HCl (Glucophage) 1,000 mg PO DAILY [facility] Last Admin: 04/09/17 09:41 Dose: Not Given Metoprolol Tartrate (Lopressor) 25 mg PO Q12 [facility] Last Admin: 04/09/17 22:19 Dose: 25 mg Pantoprazole Sodium (Protonix Inj) 40 mg IVP Q12H [facility] Last Admin: 04/10/17 00:01 Dose: 40 mg Ranolazine (Ranexa) 1,000 mg PO BID [facility] Last Admin: 04/09/17 18:56 Dose: 1,000 mg Rosuvastatin Calcium (Crestor) 10 mg PO HS [facility] Last Admin: 04/09/17 22:15 Dose: 10 mg Simethicone (Mylicon Chew Tab) 80 mg PO Q6H PRN PRN Reason: GI distress Last Admin: 04/09/17 18:56 Dose: 80 mg Sodium Chloride ([place] Baby Saline 30 Ml) 0 ml GISELA Q8H PRN PRN Reason: Nasal congestion Last Admin: 04/09/17 18:55 Dose: 1 spr Tamsulosin HCl (Flomax) 0.4 mg PO DAILY [facility] Last Admin: 04/09/17 10:07 Dose: Not Given Ticagrelor (Brilinta) 90 mg PO BID [facility] Last Admin: 04/08/17 10:14 Dose: Not Given - Labs Labs: 04/09/17 04:14 04/09/17 04:14 PT 11.9 SECONDS (9.7-12.2) 04/09/17 04:14 INR 1.1 04/09/17 04:14 APTT 28 SECONDS (21-34) 04/09/17 04:14 - Additional Findings Additional findings: - Constitutional Appears: Non-toxic, No Acute Distress - Head Exam Head Exam: ATRAUMATIC, NORMAL INSPECTION, NORMOCEPHALIC - Eye Exam Eye Exam: EOMI, Normal appearance, no pallor Pupil Exam: PERRL - ENT Exam ENT Exam: Mucous Membranes Moist, Normal Exam - Neck Exam Neck Exam: Full ROM. absent: Tenderness - Respiratory Exam Respiratory Exam: Clear to Auscultation Bilateral, NORMAL BREATHING PATTERN. absent: Accessory Muscle Use, Rales, Rhonchi, Wheezes - Cardiovascular Exam Cardiovascular Exam: REGULAR RHYTHM, +S1, +S2 - GI/Abdominal Exam GI & Abdominal Exam: Soft, Normal Bowel Sounds. absent: Tenderness - Extremities Exam Extremities Exam: Normal Inspection. absent: Pedal Edema, Tenderness - New IV in hand noted - Neurological Exam Neurological Exam: Alert, Awake, Oriented x3 - Psychiatric Exam Psychiatric exam: Normal Affect, Normal Mood - Skin Skin Exam: Dry, Normal Color, Warm Assessment and Plan - Assessment and Plan (Free Text) Plan: Disposition: Pt for discharge today. Spoke with Dr. Fair who recommends outpatient colonoscopy. Dr Farr okay with GI plan to restart aspirin 81mg, but hold Brilinta for two more days before restarting. Acute Anemia Hgb 12.7 on admission - AM H/H: 9.7/28.2 Dr. Fair consulted, GI: help appreciated - Advance diet to Regular - EGD (04/09/17): Possible monillial esophagitis. Small hiatus hernia. Gastric ulcer w clean base which was biopsied and hemostatic clips placed. Gatritis also biopsied. Normal duodenum (summary, see full report). - f/u colonoscopy as OPDX - CT ABD/Pelvis (04/09/17): Ankylosing spondylitis. Atrophic pancreas. No retroperitoneal hemorrhage (summary, see full report) Gastric Ulcer (antrum) EGD (04/09/17): Possible monillial esophagitis. Small hiatus hernia. Gastric ulcer w clean base which was biopsied and hemostatic clips placed. Gatritis also biopsied. Normal duodenum (summary, see full report). f/u Dr. Fair reccs for colonoscopy Chest Pain -Resolved Admitted on Tele KOLBY negative x 3 EKG: Rate 77 bpm; No ST/T wave changes x 3 CXR (04/04): Mild venous congestion. Patchy bibasilar airspace opacities. Biapical pleural thickening w upper lobe granulomatous changes. (see full report ) ASA 325 mg PO given in field - ASA 81mg PO Daily Continue home meds: Brilinta 90mg PO BID Continue Losartan 25 mg HS Lopressor 25 mg PO Q12H O2 2L PRN ECHO (01/14/17): EF 65% WNL, LV normal size, mild concentric LVH, LV function normal TSH/free T4: WNL Lipid panel: WNL Cardiology consult: Dr. Farr, help appreciated - Increase Ranexa to 1000mg BID, add Losartan 25mg Daily Headache Resolved CT Head (04/05/17): No intracranial bleed. (see full report) Nasal congestion Hx of Afrin use for "years" Flonase INH Daily [place] PRN T2DM Accuchecks continue home Metformin 1000mg PO Daily A1C: 5.9 HTN Elevated at presentation, now normotensive with med changes Restart home meds: Lopressor 25mg PO Q12 Lasix 20mg PO Q24H Imdur 30mg PO Daily Losartan 25mg PO HS - moved to before bed to space out BP meds Hypokalemia Resolved BPH Continue Flomax 0.4 mg PO HS CAD Crestor 10mg PO HS Prophylaxis SCDs Heparin 5000u Q12H Pepcid 20mg PO BID DW Dr. Tatiana Davey, PGY-1 <Bill Simpson H - Last Filed: 04/10/17 16:34> Objective - Vital Signs/Intake and Output Vital Signs (last 24 hours): Temp Pulse Resp BP Pulse Ox 98.7 F 79 18 113/53 L 97 04/10/17 14:19 04/10/17 14:19 04/10/17 14:19 04/10/17 14:30 04/10/17 13:00 Intake and Output: 04/10/17 04/10/17 06:59 18:59 Intake Total 900 Output Total 1000 Balance -1000 900 - Labs Labs: 04/10/17 06:28 04/10/17 06:28 PT 11.9 SECONDS (9.7-12.2) 04/09/17 04:14 INR 1.1 04/09/17 04:14 APTT 28 SECONDS (21-34) 04/09/17 04:14 Attending/Attestation - Attestation I have personally seen and examined this patient.: Yes I have fully participated in the care of the patient.: Yes I have reviewed all pertinent clinical information, including history, physical exam and plan: Yes Notes (Text): 04/10/17 16:33 Medical attending: Patient was seen and examined by me, agree with the above note by curator medical museum. The patient is doing well today, he completed a EGD yesterday. Cardiology is asking that the patient's Brillinta be held for a few more days before restarting. In the meantime he's can be on aspirin. He'll need follow-up with his primary care physician. As well as follow-up with cardiology as well as GI. Thank you very much, Bill Simpson
[2017-04-10 07:08] LABS: ALB/GLOB RATIO 1.3 (1.0-2.1)
[2017-04-10 07:23] LABS: BASO % 0.6 % (0.0-2.0); EOS # 0.2 K/uL (0.0-0.7); EOS % 2.2 % (0.0-4.0); HEMATOCRIT 28.2 % (35.0-51.0); LYMPH # 1.6 K/uL (1.0-4.3); LYMPH % 19.6 % (20.0-40.0); MEAN CELL VOLUME 90.1 fL (80.0-94.0); MEAN CORPUSCULAR HEMOGLOBIN 30.9 pg (27.0-31.0); MEAN CORPUSCULAR HGB CONC 34.3 g/dL (33.0-37.0); MEAN PLATELET VOLUME 11.4 fL (7.2-11.7); MONO # 0.9 K/uL (0.0-0.8); MONO % 10.5 % (0.0-10.0); RED CELL DISTRIBUTION WIDTH 13.6 % (11.5-14.5); WHITE BLOOD COUNT 8.2 K/uL (4.8-10.8)
--- NOTE | 2017-04-10 07:35 | CP.PCM.PN ---
Subjective - Date & Time of Evaluation Date of Evaluation: 04/10/17 Time of Evaluation: 07:32 - Subjective Subjective: Patient feels well. He denies having nausea, vomiting, abdominal pain. He is tolerating the liquid diet. He has not had a bowel movement so far today. Hemoglobin this morning is up to 9.7. Objective - Vital Signs/Intake and Output Vital Signs (last 24 hours): Temp Pulse Resp BP Pulse Ox 98.9 F 60 20 138/53 L 98 04/09/17 23:00 04/10/17 05:35 04/10/17 05:35 04/10/17 05:35 04/10/17 05:35 Intake and Output: 04/10/17 04/10/17 06:59 18:59 Output Total 1000 Balance -1000 - Medications Medications: Current Medications Aspirin (Ecotrin) 81 mg PO DAILY [facility] Last Admin: 04/08/17 10:12 Dose: Not Given Fluticasone Propionate (Flonase) 2 spr GISELA DAILY [facility] Last Admin: 04/09/17 10:15 Dose: 2 spr Furosemide (Lasix) 20 mg PO Q24H [facility] Last Admin: 04/09/17 14:12 Dose: Not Given Heparin Sodium (Porcine) (Heparin) 5,000 units SC Q12 [facility] Last Admin: 04/08/17 10:12 Dose: Not Given Dextrose/Sodium Chloride (Dextrose 5%/0.9% Ns 1000 Ml) 1,000 mls @ 40 mls/hr IV .Q24H [facility] Last Admin: 04/09/17 09:11 Dose: 40 mls/hr Lactated Ringer's (Lactated Ringer's 500ml) 500 mls @ 75 mls/hr IV .Q6H40M [facility] Last Admin: 04/09/17 22:16 Dose: Not Given Isosorbide Mononitrate (Imdur) 30 mg PO DAILY [facility] Last Admin: 04/09/17 10:14 Dose: 30 mg Losartan Potassium (Cozaar) 25 mg PO HS [facility] Last Admin: 04/09/17 22:15 Dose: 25 mg Metformin HCl (Glucophage) 1,000 mg PO DAILY [facility] Last Admin: 04/09/17 09:41 Dose: Not Given Metoprolol Tartrate (Lopressor) 25 mg PO Q12 [facility] Last Admin: 04/09/17 22:19 Dose: 25 mg Pantoprazole Sodium (Protonix Inj) 40 mg IVP Q12H [facility] Last Admin: 04/10/17 00:01 Dose: 40 mg Ranolazine (Ranexa) 1,000 mg PO BID [facility] Last Admin: 04/09/17 18:56 Dose: 1,000 mg Rosuvastatin Calcium (Crestor) 10 mg PO HS [facility] Last Admin: 04/09/17 22:15 Dose: 10 mg Simethicone (Mylicon Chew Tab) 80 mg PO Q6H PRN PRN Reason: GI distress Last Admin: 04/09/17 18:56 Dose: 80 mg Sodium Chloride ([place] Baby Saline 30 Ml) 0 ml GIS[facility]A Q8H PRN PRN Reason: Nasal congestion Last Admin: 04/09/17 18:55 Dose: 1 spr Tamsulosin HCl (Flomax) 0.4 mg PO DAILY [facility] Last Admin: 04/09/17 10:07 Dose: Not Given Ticagrelor (Brilinta) 90 mg PO BID [facility] Last Admin: 04/08/17 10:14 Dose: Not Given - Labs Labs: 04/10/17 06:28 04/10/17 06:28 PT 11.9 SECONDS (9.7-12.2) 04/09/17 04:14 INR 1.1 04/09/17 04:14 APTT 28 SECONDS (21-34) 04/09/17 04:14 - Constitutional Appears: No Acute Distress - Head Exam Head Exam: ATRAUMATIC, NORMOCEPHALIC - Eye Exam Eye Exam: EOMI, PERRL - Neck Exam Neck Exam: absent: Lymphadenopathy, Thyromegaly - Respiratory Exam Respiratory Exam: NORMAL BREATHING PATTERN. absent: Rales, Rhonchi, Wheezes - Cardiovascular Exam Cardiovascular Exam: REGULAR RHYTHM, +S1, +S2. absent: Gallop, Rubs, Murmur - GI/Abdominal Exam GI & Abdominal Exam: Soft, Normal Bowel Sounds. absent: Tenderness, Mass, Organomegaly - Rectal Exam Rectal Exam: Deferred - Extremities Exam Extremities Exam: absent: Calf Tenderness, Pedal Edema Assessment and Plan (1) Anemia due to blood loss, acute Assessment & Plan: Patient found to have a gastric ulcer on EGD. The ulcer was clipped, which should prevent rebleeding. Patient should also have repeat colonoscopy, which can be arranged as an outpatient. Status: Acute
--- NOTE | 2017-04-10 08:47 | CP.PCM.DIS ---
<Ta Davey - Last Filed: 04/11/17 18:30> Provider - Provider Date of Admission: 04/06/17 16:46 Attending physician: Bill Simpson DO Primary care physician: Hospitalist: Dr. Simpson PMD: Princess Consults: Marv: DARIEN Cardio: Yordan Time Spent in preparation of Discharge (in minutes): 45 Diagnosis - Discharge Diagnosis (1) Gastric ulcer Status: Acute Comment: Seen on endoscopy. Pt needs OPDX colonosopy w. Dr. hernandez (2) Anemia due to blood loss, acute Status: Acute Comment: Hgb drop from bleeding ulcer, hemostatic clips during EGD (3) CAD (coronary atherosclerotic disease) Status: Acute Comment: hx stents, Dr. farr consulted Hospital Course - Lab Results Lab Results: Most Recent Lab Values WBC 8.2 K/uL (4.8-10.8) 04/10/17 06:28 RBC 3.13 Mil/uL (4.40-5.90) L 04/10/17 06:28 Hgb 9.7 g/dL (12.0-18.0) L 04/10/17 06:28 Hct 28.2 % (35.0-51.0) L 04/10/17 06:28 MCV 90.1 fL (80.0-94.0) 04/10/17 06:28 MCH 30.9 pg (27.0-31.0) 04/10/17 06:28 MCHC 34.3 g/dL (33.0-37.0) 04/10/17 06:28 RDW 13.6 % (11.5-14.5) 04/10/17 06:28 Plt Count 149 K/uL (130-400) 04/10/17 06:28 MPV 11.4 fL (7.2-11.7) 04/10/17 06:28 Neut % (Auto) 67.1 % (50.0-75.0) 04/10/17 06:28 Lymph % (Auto) 19.6 % (20.0-40.0) L 04/10/17 06:28 Vance % (Auto) 10.5 % (0.0-10.0) H 04/10/17 06:28 Eos % (Auto) 2.2 % (0.0-4.0) 04/10/17 06:28 Baso % (Auto) 0.6 % (0.0-2.0) 04/10/17 06:28 Neut # 5.5 K/uL (1.8-7.0) 04/10/17 06:28 Lymph # 1.6 K/uL (1.0-4.3) 04/10/17 06:28 Vance # 0.9 K/uL (0.0-0.8) H 04/10/17 06:28 Eos # 0.2 K/uL (0.0-0.7) 04/10/17 06:28 Baso # 0.0 K/uL (0.0-0.2) 04/10/17 06:28 Retic Count 2.4 % (0.5-1.5) H 04/08/17 20:56 PT 11.9 SECONDS (9.7-12.2) 04/09/17 04:14 INR 1.1 04/09/17 04:14 APTT 28 SECONDS (21-34) 04/09/17 04:14 Sodium 138 mmol/L (132-148) 04/10/17 06:28 Potassium 3.9 mmol/L (3.6-5.2) 04/10/17 06:28 Chloride 102 mmol/L (98-107) 04/10/17 06:28 Carbon Dioxide 26 mmol/L (22-30) 04/10/17 06:28 Anion Gap 15 (10-20) 04/10/17 06:28 BUN 14 mg/dL (9-20) 04/10/17 06:28 Creatinine 0.8 MG/DL (0.8-1.5) 04/10/17 06:28 Est GFR ( Amer) > 60 04/10/17 06:28 Est GFR (Non-Af Amer) > 60 04/10/17 06:28 POC Glucose (mg/dL) 92 mg/dL (65-110) 04/10/17 06:21 Random Glucose 90 mg/dL (75-110) 04/10/17 06:28 Hemoglobin A1c 5.9 % (4.2-6.5) 04/05/17 06:43 Calcium 8.6 mg/dl (8.6-10.4) 04/10/17 06:28 Phosphorus 3.3 mg/dL (2.5-4.5) 04/10/17 06:28 Magnesium 1.7 mg/dL (1.6-2.3) 04/10/17 06:28 Iron 133 ug/dL (49-181) 04/08/17 20:56 TIBC 285 ug/dL (250-450) 04/08/17 20:56 % Saturation 47 (20-55) 04/08/17 20:56 Ferritin 22.3 ng/mL 04/08/17 20:56 Total Bilirubin 0.8 mg/dL (0.2-1.3) 04/10/17 06:28 AST 27 U/L (17-59) 04/10/17 06:28 ALT 26 U/L (21-72) 04/10/17 06:28 Alkaline Phosphatase 64 U/L (38-126) 04/10/17 06:28 Total Creatine Kinase 133 U/L (55-170) 04/05/17 13:36 CK-MB (Mass) 2.83 ng/mL (0.0-3.38) 04/05/17 13:36 Troponin I < 0.0120 ng/mL (0.00-0.120) 04/05/17 00:29 Troponin I, Quant < 0.0120 ng/mL (0.00-0.120) 04/05/17 13:36 Total Protein 6.3 g/dL (6.3-8.3) 04/10/17 06:28 Albumin 3.5 g/dL (3.5-5.0) D 04/10/17 06:28 Globulin 2.8 gm/dL (2.2-3.9) 04/10/17 06:28 Albumin/Globulin Ratio 1.3 (1.0-2.1) 04/10/17 06:28 Triglycerides 53 mg/dL (0-149) D 04/05/17 06:43 Cholesterol 104 mg/dL (0-199) 04/05/17 06:43 LDL Cholesterol Direct 43 mg/dL (0-129) 04/05/17 06:43 HDL Cholesterol 43 mg/dL (30-70) 04/05/17 06:43 Vitamin B12 881 pg/mL (239-931) 04/08/17 20:56 Folate 18.0 ng/mL 04/08/17 20:56 Free T4 1.44 ng/dL (0.78-2.19) 04/05/17 06:43 TSH 3rd Generation 1.94 mIU/L (0.46-4.68) 04/05/17 06:43 Blood Type B POSITIVE 04/08/17 10:48 Antibody Screen Negative 04/08/17 10:48 - Hospital Course Hospital Course: On admission: Patient is a 76 yo M with pmhx of HTN, T2DM, BPH, CAD with two-vessel disease, 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 He reports the chest pain began around 11AM and has worsened throughout the day. He describes the pain as an intermittent, pressure-like sensation in his mid-sternum, that lasts for "5-10 minutes," and that radiated to his left shoulder. The pain is not made worse with exertion. The pain is not affected by respiration or position or direct pressure to chest wall. He rates the pain as 6-7/10 on the severity scale at worst, and absent now. Pt states the pain was associated with "feeling of lightheadedness," but denies room was spinning. He has had this pain before, saying it reminded him of chest pain he had two months ago. Pt admits cardiac cath two months with two-vessel disease. Two stents placed in left main by Dr. Farr. He denies recent strenuous activity. At baseline he uses cane to get around house. 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 Pt states he feels numbness and tingling in his legs, and that he has recently stopped taking his gabapentin because it "does not work." He denies palpitations , shortness of breath, abdominal pain, nausea, vomiting, diaphoresis, fever, fatigue, or chills. He denies sick contacts or recent travels. Hospital course: Pt admitted on 04/05/17 for chest pain. KOLBY negative x 3, EKGs with normal rate , no ST/Twave changes. ASA 325 given in field, 81mg daily. Pt c/o of headache, and with hx of CVA, CT head was ordered by ED which was negative for acute bleed. Pt continued on home Brilinta. ECHO showed EF WNL, normal LV size, mild concentric LVH, normal LV function. Acid Treater, Dr. Farr recommended increasing Ranexa dosage and reintroducing ARB. Pts HTN treated with home Lopressor, Lasix, Imdur. Home Clonidine was stopped. Pt had [employer] on 04/06 when he had near-syncopal episode on toilet. Pts BP med timing were adjusted and he warned to get up slowly from sitting position. Pt set for discharge but had large drop in hemoglobin. GI, Dr. Hermosillo, was consulted for possible GI bleed. CT negative for retroperitoneal bleed. Pt given one unit PRBCs. EGD showed ulcer in gastric body which was controlled with hemostatic clips. Pt H/h stabilized. Pt deemed stable for discharge on 04/10/17. He was told to follow up with Dr. hernandez for outpatient colonoscopy. - Date & Time of H&P Date of H&P: 04/05/17 Time of H&P: 01:39 Discharge Exam - Additional Findings Additional findings: - Constitutional Appears: Non-toxic, No Acute Distress - Head Exam Head Exam: ATRAUMATIC, NORMAL INSPECTION, NORMOCEPHALIC - Eye Exam Eye Exam: EOMI, Normal appearance, no pallor Pupil Exam: PERRL - ENT Exam ENT Exam: Mucous Membranes Moist, Normal Exam - Neck Exam Neck Exam: Full ROM. absent: Tenderness - Respiratory Exam Respiratory Exam: Clear to Auscultation Bilateral, NORMAL BREATHING PATTERN. absent: Accessory Muscle Use, Rales, Rhonchi, Wheezes - Cardiovascular Exam Cardiovascular Exam: REGULAR RHYTHM, +S1, +S2 - GI/Abdominal Exam GI & Abdominal Exam: Soft, Normal Bowel Sounds. absent: Tenderness - Extremities Exam Extremities Exam: Normal Inspection. absent: Pedal Edema, Tenderness - Neurological Exam Neurological Exam: Alert, Awake, Oriented x3 - Psychiatric Exam Psychiatric exam: Normal Affect, Normal Mood - Skin Skin Exam: Dry, Normal Color, Warm Discharge Plan - Discharge Medications Prescriptions: Isosorbide Mononitrate [Imdur] 30 mg PO DAILY #30 tab Ranolazine [Ranexa] 1,000 mg PO BID #60 ter - Follow Up Plan Condition: FAIR Disposition: HOME/ ROUTINE Instructions: Coronary Artery Disease (DC), Chest Pain (DC), Peptic Ulcer (DC) , Low Fat Diet (DC), Diet for Ulcers and Gastritis (GEN), Iron Rich Diet (DC), Heart Healthy Diet (DC), Cholesterol and Your Health (GEN), Anemia (DC) Additional Instructions: Patient stable for discharge per Dr. Simpson. Patient may resume his medications with EXCEPTION of Brilinta which he will restart in TWO DAYS, and Mobic which he should cease taking. Pt was further warned about dangers of taking NSAIDs with stomach ulcer. He has been prescribed the following medications: Imdur, Ranexa Patient is make an appointment with their PMD, Dr. Sánchez, within one week of discharge for follow-up. He should also make an appointment to follow up with specialist, Dr. Hernandez to continue evaluation of GI bleeding. Dr. Hernandez recommends outpatient colonoscopy which pt can setup by calling his office. Pt should also follow up with his seismograph computer Dr. Farr He/she is advised to return to the emergency department if symptoms return or worsen. These instructions were given to the pt in Indonesian/Serbian. Patient expressed verbal understanding of these instructions. Prescribed medications: Imdur 30mg, by mouth once daily Ranexa 1000mg, by mouth twice daily Prescribed procedures: Outpatient colonoscopy to be setup with Dr. Hernandez Referrals: Chito Hernandez MD [Staff Provider] - Kimmie Farr MD [Staff Provider] - <Bill Simpson - Last Filed: 04/12/17 07:20> Provider - Provider Date of Admission: 04/06/17 16:46 Attending physician: Bill Simpson, DO Hospital Course - Lab Results Lab Results: Most Recent Lab Values WBC 8.2 K/uL (4.8-10.8) 04/10/17 06:28 RBC 3.13 Mil/uL (4.40-5.90) L 04/10/17 06:28 Hgb 9.7 g/dL (12.0-18.0) L 04/10/17 06:28 Hct 28.2 % (35.0-51.0) L 04/10/17 06:28 MCV 90.1 fL (80.0-94.0) 04/10/17 06:28 MCH 30.9 pg (27.0-31.0) 04/10/17 06:28 MCHC 34.3 g/dL (33.0-37.0) 04/10/17 06:28 RDW 13.6 % (11.5-14.5) 04/10/17 06:28 Plt Count 149 K/uL (130-400) 04/10/17 06:28 MPV 11.4 fL (7.2-11.7) 04/10/17 06:28 Neut % (Auto) 67.1 % (50.0-75.0) 04/10/17 06:28 Lymph % (Auto) 19.6 % (20.0-40.0) L 04/10/17 06:28 Vance % (Auto) 10.5 % (0.0-10.0) H 04/10/17 06:28 Eos % (Auto) 2.2 % (0.0-4.0) 04/10/17 06:28 Baso % (Auto) 0.6 % (0.0-2.0) 04/10/17 06:28 Neut # 5.5 K/uL (1.8-7.0) 04/10/17 06:28 Lymph # 1.6 K/uL (1.0-4.3) 04/10/17 06:28 Vance # 0.9 K/uL (0.0-0.8) H 04/10/17 06:28 Eos # 0.2 K/uL (0.0-0.7) 04/10/17 06:28 Baso # 0.0 K/uL (0.0-0.2) 04/10/17 06:28 Retic Count 2.4 % (0.5-1.5) H 04/08/17 20:56 PT 11.9 SECONDS (9.7-12.2) 04/09/17 04:14 INR 1.1 04/09/17 04:14 APTT 28 SECONDS (21-34) 04/09/17 04:14 Sodium 138 mmol/L (132-148) 04/10/17 06:28 Potassium 3.9 mmol/L (3.6-5.2) 04/10/17 06:28 Chloride 102 mmol/L (98-107) 04/10/17 06:28 Carbon Dioxide 26 mmol/L (22-30) 04/10/17 06:28 Anion Gap 15 (10-20) 04/10/17 06:28 BUN 14 mg/dL (9-20) 04/10/17 06:28 Creatinine 0.8 MG/DL (0.8-1.5) 04/10/17 06:28 Est GFR ( Amer) > 60 04/10/17 06:28 Est GFR (Non-Af Amer) > 60 04/10/17 06:28 POC Glucose (mg/dL) 95 mg/dL (65-110) 04/10/17 11:13 Random Glucose 90 mg/dL (75-110) 04/10/17 06:28 Hemoglobin A1c 5.9 % (4.2-6.5) 04/05/17 06:43 Calcium 8.6 mg/dl (8.6-10.4) 04/10/17 06:28 Phosphorus 3.3 mg/dL (2.5-4.5) 04/10/17 06:28 Magnesium 1.7 mg/dL (1.6-2.3) 04/10/17 06:28 Iron 133 ug/dL (49-181) 04/08/17 20:56 TIBC 285 ug/dL (250-450) 04/08/17 20:56 % Saturation 47 (20-55) 04/08/17 20:56 Ferritin 22.3 ng/mL 04/08/17 20:56 Total Bilirubin 0.8 mg/dL (0.2-1.3) 04/10/17 06:28 AST 27 U/L (17-59) 04/10/17 06:28 ALT 26 U/L (21-72) 04/10/17 06:28 Alkaline Phosphatase 64 U/L (38-126) 04/10/17 06:28 Total Creatine Kinase 133 U/L (55-170) 04/05/17 13:36 CK-MB (Mass) 2.83 ng/mL (0.0-3.38) 04/05/17 13:36 Troponin I < 0.0120 ng/mL (0.00-0.120) 04/05/17 00:29 Troponin I, Quant < 0.0120 ng/mL (0.00-0.120) 04/05/17 13:36 Total Protein 6.3 g/dL (6.3-8.3) 04/10/17 06:28 Albumin 3.5 g/dL (3.5-5.0) D 04/10/17 06:28 Globulin 2.8 gm/dL (2.2-3.9) 04/10/17 06:28 Albumin/Globulin Ratio 1.3 (1.0-2.1) 04/10/17 06:28 Triglycerides 53 mg/dL (0-149) D 04/05/17 06:43 Cholesterol 104 mg/dL (0-199) 04/05/17 06:43 LDL Cholesterol Direct 43 mg/dL (0-129) 04/05/17 06:43 HDL Cholesterol 43 mg/dL (30-70) 04/05/17 06:43 Vitamin B12 881 pg/mL (239-931) 04/08/17 20:56 Folate 18.0 ng/mL 04/08/17 20:56 Free T4 1.44 ng/dL (0.78-2.19) 04/05/17 06:43 TSH 3rd Generation 1.94 mIU/L (0.46-4.68) 04/05/17 06:43 Blood Type B POSITIVE 04/08/17 10:48 Antibody Screen Negative 04/08/17 10:48 Attending/Attestation - Attestation I have personally seen and examined this patient.: Yes I have fully participated in the care of the patient.: Yes I have reviewed all pertinent clinical information, including history, physical exam and plan: Yes Notes (Text): Medical Attending: Patient was seen and examined by me. Agree with the above note by the resident. The patient was tolerating diet, bowel movements reported as ok, he was able to walk on but needs a cane to help him. He completed an EGD, and previously 1 unit of PRBC. Per cardiology his brillinta needs to be held a few days before he restarts this medication. He understands he needs to follow up with his PMD and his seismograph computer thank you Bill Simpson
[2017-04-10] MEDS: Ranolazine 500 mg Extended Release Tablets PO SCH (10:22)
[2017-04-10] MEDS: Fluticasone Nasal 50 mcg/Spray NAS SCH (11:24)
[2017-04-10] MEDS ORDERED: Sodium Chloride 0.9% 500 ML IV ONE (13:05)
[2017-04-10 13:45] VITALS: O2SAT 97
[2017-04-10 14:20] VITALS: PULSE 79; RESP 18; TEMP 98.7
[2017-04-10 14:44] VITALS: BP 113/53
== END 2017-04-10 15:30 | disposition home or self-care (01) | DRG 811 ==
LOC: C.ER 23:34 → C.6T 04-05 01:22 → OBSVTOIN 04-06 16:46
PROVIDERS: ADMIT Hospitalist; ATTEND Hospitalist
PROC: 30233N1 Transfusion of Nonautologous Red Blood Cells into Peripheral Vein, Percutaneous Approach (ICD-10-PCS; 2017-04-08)
PROC: 0W3P8ZZ Control Bleeding in Gastrointestinal Tract, Via Natural or Artificial Opening Endoscopic (ICD-10-PCS; 2017-04-09)
PROC: 0DB68ZX Excision of Stomach, Via Natural or Artificial Opening Endoscopic, Diagnostic (ICD-10-PCS; principal; 2017-04-09 14:21)
DX: D62 Acute posthemorrhagic anemia (principal); K25.0 Acute gastric ulcer with hemorrhage; B37.81 Candidal esophagitis; E11.9 Type 2 diabetes mellitus without complications; M50.20 Other cervical disc displacement, unspecified cervical region; I16.1 Hypertensive emergency; I10 Essential (primary) hypertension; M19.90 Unspecified osteoarthritis, unspecified site; Z95.5 Presence of coronary angioplasty implant and graft; I25.10 Atherosclerotic heart disease of native coronary artery without angina pectoris; I69.992 Facial weakness following unspecified cerebrovascular disease; K59.00 Constipation, unspecified; F17.210 Nicotine dependence, cigarettes, uncomplicated; E78.5 Hyperlipidemia, unspecified; E87.6 Hypokalemia; N40.0 Benign prostatic hyperplasia without lower urinary tract symptoms; R55 Syncope and collapse; K44.9 Diaphragmatic hernia without obstruction or gangrene

== ENCOUNTER 2017-07-17 21:33 | Inpatient (IN) | payer MEDICARE ==
[2017-07-17 21:57] VITALS: BMI 25.1
[2017-07-17] MEDS ORDERED: Pantoprazole 80 MG in Sodium Chloride 0.9% 100 ML IV STA (21:57)
[2017-07-17] MEDS ORDERED: Sodium Chloride 0.9% 1,000 ML IV ONE (21:57)
[2017-07-17] MEDS ORDERED: Sodium Chloride 0.9% 1,000 ML ONE (22:08)
[2017-07-17 22:21] LABS: BASO # 0.1 K/uL (0.0-0.2); BASO % 0.8 % (0.0-2.0); EOS # 0.2 K/uL (0.0-0.7); EOS % 1.7 % (0.0-4.0); LYMPH # 1.5 K/uL (1.0-4.3); LYMPH % 16.2 % (20.0-40.0); MEAN CORPUSCULAR HEMOGLOBIN 26.4 pg (27.0-31.0); MEAN CORPUSCULAR HGB CONC 32.6 g/dL (33.0-37.0); MONO # 0.7 K/uL (0.0-0.8); MONO % 7.8 % (0.0-10.0); RED CELL DISTRIBUTION WIDTH 17.1 % (11.5-14.5); WHITE BLOOD COUNT 9.1 K/uL (4.8-10.8)
[2017-07-17 22:22] LABS: MEAN CELL VOLUME 80.9 fL (80.0-94.0)
--- NOTE | 2017-07-17 22:22 | C.PDOC ---
History Of Present Illness 77 y/o male presents to the ED for evaluation after having four episodes of coffee-grind vomitus this afternoon. Patient has a history of GI bleeds and was recently admitted from April 06-. Patient denies fever, chills, diarrhea. Time Seen by Provider: 07/17/17 21:48 Chief Complaint (Nursing): Abdominal Pain History Per: Patient History/Exam Limitations: no limitations Onset/Duration Of Symptoms: Hrs Current Symptoms Are (Timing): Still Present Radiation Of Pain To:: None Associated Symptoms: Vomiting (coffee-ground). denies: Fever, Chills, Diarrhea Additional History Per: Patient Past Medical History Reviewed: Historical Data, Nursing Documentation, Vital Signs Vital Signs: Last Vital Signs Temp 98.1 F 07/17/17 21:54 Pulse 79 07/17/17 21:54 Resp 20 07/17/17 21:54 BP 190/72 H 07/17/17 21:54 Pulse Ox 100 07/17/17 22:25 - Medical History PMH: Arthritis, Diabetes, HTN Surgical History: Appendectomy (1960) - [facility] Procedures CONTROL BLEEDING IN GASTROINTESTINAL TRACT, ENDO (04/06/17) EXCISION OF STOMACH, ENDO, DIAGN (04/06/17) MEASURE OF CARDIAC SAMPL & PRESSURE, L HEART, PERC APPROACH (01/25/17) PLAIN RADIOGRAPHY OF SINGLE COR ART USING OTH CONTRAST (01/25/17) TRANSFUSE NONAUT RED BLOOD CELLS IN PERIPH VEIN, PERC (04/06/17) Family History: States: Hypertension - Social History Hx Tobacco Use: No Hx Alcohol Use: No Hx Substance Use: No - Immunization History Hx Tetanus Toxoid Vaccination: No Hx Influenza Vaccination: No Hx Pneumococcal Vaccination: Yes Review Of Systems Constitutional: Negative for: Fever, Chills Gastrointestinal: Positive for: Hematemesis (coffee-ground ). Negative for: Diarrhea Physical Exam - Physical Exam Appears: Non-toxic, No Acute Distress Skin: Warm, Dry, Pale Head: Atraumatic, Normacephalic Eye(s): bilateral: Normal Inspection Oral Mucosa: Moist Throat: Normal, No Erythema, No Exudate Neck: Supple Chest: Symmetrical, No Deformity, No Tenderness Cardiovascular: Rhythm Regular, No Murmur Respiratory: Normal Breath Sounds, No Rales, No Rhonchi, No Wheezing Gastrointestinal/Abdominal: Tenderness (vague ), No Guarding, No Rebound Back: Normal Inspection Extremity: Normal ROM, Capillary Refill (less than 2 seconds ) Neurological/Psych: Oriented x3, Normal Speech, Normal Cognition Gait: Steady ED Course And Treatment - Laboratory Results Result Diagrams: 07/17/17 22:13 07/17/17 22:13 Lab Interpretation: Normal (hgb unchanged over past 4 mo, trop neg.) ECG: Interpreted By Me ECG Rhythm: Sinus Rhythm ECG Interpretation: Normal Rate From EC O2 Sat by Pulse Oximetry: 100 (on RA) Pulse Ox Interpretation: Normal - Radiology CXR: Interpreted by Me CXR Interpretation: Yes: No Acute Disease Progress Note: labs, EKG, and CXR ordered and reviewed. Patient received Protonix IV, Zofran IVP, and IV Fluids. Reevaluation Time: 23:00 Reassessment Condition: Improved (noted scant vomitus of coffee-grind appearing material) - Physician Consult Information Outcome Of Conversation: 2300: d/w Dr. Rodas, Hospitalist Private Investigator Surveillance- covering pt 's for Dr. Kaleb martin to Tele obs. Discussed icu adm, pt stable for Tele for now. Medical Decision Making Medical Decision Making: recurrent upper GIB with coffee grind emesis, h/o same 04/06/16, with bleeding stomach ulcer banded by Dr. Colby. IVF and Protonix started T/S standing by for transfusion PRN Follow H/H, GI consult, repeat upper endoscopy. Disposition Doctor Will See Patient In The: Hospital Counseled Patient/Family Regarding: Studies Performed, Diagnosis - Disposition Disposition: HOSPITALIZED Disposition Time: 23:02 Condition: FAIR Forms: [facility] ([place]) - Clinical Impression Clinical Impression: Hematemesis - Scribe Statement The provider has reviewed the documentation as recorded by the Scribe (Dawn Hunter) Provider Attestation: All medical record entries made by the Scribe were at my direction and personally dictated by me. I have reviewed the chart and agree that the record accurately reflects my personal performance of the history, physical exam, medical decision making, and the department course for this patient. I have also personally directed, reviewed, and agree with the discharge instructions and disposition.
[2017-07-17 22:27] LABS: CHLORIDE 101 mmol/L (98-107)
[2017-07-17 22:28] LABS: INR 1.1; POTASSIUM 4.2 mmol/L (3.6-5.2); SODIUM 137 mmol/L (132-148)
[2017-07-17 22:30] LABS: ALB/GLOB RATIO 1.3 (1.0-2.1); AST/SGOT 27 U/L (17-59); BILIRUBIN,TOTAL 0.6 mg/dL (0.2-1.3); CARBON DIOXIDE 22 mmol/L (22-30); GFR AFRICAN-AMERICAN > 60; TOTAL PROTEIN 6.5 g/dL (6.3-8.3)
[2017-07-17 22:31] LABS: ALKALINE PHOSPHATASE 66 U/L (38-126); ALT/SGPT 30 U/L (21-72); BLOOD UREA NITROGEN 38 mg/dL (9-20); GLUCOSE,RANDOM 144 mg/dL (75-110)
[2017-07-17 23:04] LABS: RBC URINE 2 /hpf (0-3); TRANSITIONAL EPITHIAL < 1 /hpf (0-3); URINE BACTERIA RARE (<OCC); URINE BILIRUBIN NEGATIVE (NEGATIVE); URINE BLOOD NEGATIVE (NEGATIVE); URINE COLOR Yellow (YELLOW); URINE GLUCOSE (UA) NORMAL (Normal); URINE KETONE 1+ mg/dL (NEGATIVE); URINE LEUKOCYTE ESTERASE NEG Leu/uL (Negative); URINE PROTEIN NEGATIVE (NEGATIVE); URINE UROBILINOGEN NORMAL mg/dL (0.2-1.0); WBC URINE < 1 /hpf (0-5)
[2017-07-18] MEDS ORDERED: Pantoprazole 80 MG in Sodium Chloride 0.9% 100 ML IVP SCH ×2 (01:30→02:45)
[2017-07-18] MEDS: Pantoprazole 80 MG in Sodium Chloride 0.9% 100 ML IVPB SCH ×3 (03:00→22:12)
--- NOTE | 2017-07-18 05:47 | CP.PCM.HP ---
<Jose Miller - Last Filed: 07/18/17 07:17> History of Present Illness - History of Present Illness History of Present Illness: PGY1 Note for Dr. Rodas PMD: Princess HPI: Patient is a 77 y/o M with a PMH of DM, GI bleed, Coronary stents, 3 MIs presents to the ER with a CC of coffee ground emesis. He had one episode early in the evening as well as another episode in the ER. It is associated with belly pain but he states he always has belly pain. Denies any dark stools. He has no chest pain or problems breathing. States he has a bad taste in his mouth. Last time he was here in march he presented with chest pain and had a stent placed for CAD. He later had a drop in Hgb that prompted an EGD where he was found to have an gastric ulcer that was banded at that time. Patient takes many medications at home including Brillinta and Mobic. PMH: Hx of GI bleed with Ulcer on EGD, DM, HTN, MIx3 with stent in [place], [place]vall 's Palsy, herniated disc, sciatica, BPH, CAD PSH: Appy, Carpal tunnel, Cardiac cath with stent in [place] FH: mom and dad in HTN SH: Former smoker (1ppd- quit 10 years ago), occasional EtOH, denies drugs, retired, lives with sister Meds: Ranexa, Mobic, Metformin, Gabapentin, Calcium, Tramadol, Brillinta, Loressor, Bromofenac, Atorvastatin, ranitidine, besifloxacin, ASA, catapres, Losartan, Hydralazine, Flonase, Flomax Allergies: NKDA Present on Admission - Present on Admission Any Indicators Present on Admission: No History of DVT/PE: No History of Uncontrolled Diabetes: No Urinary Catheter: No Decubitus Ulcer Present: No History Surgical Site Infection Following: None Review of Systems - Constitutional Constitutional: As Per HPI - EENT Eyes: As Per HPI Ears: As Per HPI Nose/Mouth/Throat: As Per HPI - Cardiovascular Cardiovascular: As Per HPI - Respiratory Respiratory: As Per HPI - Gastrointestinal Gastrointestinal: As Per HPI - Genitourinary Genitourinary: As Per HPI - Reproductive: Male Reproductive:Male: As Per HPI - Musculoskeletal Musculoskeletal: As Per HPI - Integumentary Integumentary: As Per HPI - Neurological Neurological: As Per HPI - Psychiatric Psychiatric: As Per HPI - Endocrine Endocrine: As Per HPI - Hematologic/Lymphatic Hematologic: As Per HPI Past Patient History - Past Medical History & Family History Past Medical History?: Yes - Past Social History Smoking Status: Former Smoker - CARDIAC Hx Cardiac Disorders: Yes Hx Hypertension: Yes - PULMONARY Hx Respiratory Disorders: No - NEUROLOGICAL Hx Neurological Disorder: Yes HX Cerebrovascular Accident: Yes (left facial weakness and slurred speech in 2000) - HEENT Hx HEENT Problems: Yes Hx Cataracts: (cataract surgery 2016) - RENAL Hx Chronic Kidney Disease: No - ENDOCRINE/METABOLIC Hx Endocrine Disorders: Yes Hx Diabetes Mellitus Type 2: Yes - HEMATOLOGICAL/ONCOLOGICAL Hx Blood Disorders: No Hx Human Immunodeficiency Virus (HIV): No - INTEGUMENTARY Hx Dermatological Problems: No - MUSCULOSKELETAL/RHEUMATOLOGICAL Hx Musculoskeletal Disorders: Yes Hx Arthritis: Yes Hx Falls: No - GASTROINTESTINAL Hx Gastrointestinal Disorders: Yes Hx Ulcer: Yes (gastric ulcer (04/11)) - GENITOURINARY/GYNECOLOGICAL Hx Genitourinary Disorders: No - PSYCHIATRIC Hx Psychophysiologic Disorder: No Hx Substance Use: No - SURGICAL HISTORY Hx Surgeries: Yes Hx Appendectomy: Yes (1960) - ANESTHESIA Hx Anesthesia: Yes Hx Anesthesia Reactions: No Hx Malignant Hyperthermia: No Meds Allergies/Adverse Reactions: Allergies Allergy/AdvReac Type Severity Reaction Status Date / Time No Known Allergies Allergy Verified 04/04/17 23:48 Physical Exam - Head Exam Head Exam: ATRAUMATIC, NORMAL INSPECTION, NORMOCEPHALIC Additional comments: L. sided facial droop - Eye Exam Eye Exam: EOMI, Normal appearance Pupil Exam: NORMAL ACCOMODATION - ENT Exam ENT Exam: Mucous Membranes Moist - Neck Exam Neck exam: Positive for: Normal Inspection - Respiratory Exam Respiratory Exam: Clear to Auscultation Bilateral, NORMAL BREATHING PATTERN - Cardiovascular Exam Cardiovascular Exam: REGULAR RHYTHM - GI/Abdominal Exam GI & Abdominal Exam: Normal Bowel Sounds, Soft. absent: Distended, Tenderness - Extremities Exam Extremities exam: Negative for: joint swelling, tenderness - Back Exam Back exam: absent: CVA tenderness (L), CVA tenderness (R) - Neurological Exam Neurological exam: Alert, Oriented x3 - Psychiatric Exam Psychiatric exam: Normal Affect, Normal Mood - Skin Skin Exam: Dry, Intact, Normal Color, Warm Results - Vital Signs Recent Vital Signs: Last Vital Signs Temp 98.3 F 07/18/17 00:30 Pulse 84 07/18/17 01:00 Resp 20 07/18/17 00:30 BP 174/75 H 07/18/17 02:25 Pulse Ox 98 07/18/17 00:30 - Labs Result Diagrams: 07/17/17 22:13 07/17/17 22:13 Labs: Laboratory Results - last 24 hr 07/17/17 07/17/17 07/17/17 21:57 22:13 22:13 WBC 9.1 RBC 3.47 L Hgb 9.1 L Hct 28.0 L MCV 80.9 D MCH 26.4 L MCHC 32.6 L RDW 17.1 H Plt Count 167 MPV 11.0 Neut % (Auto) 73.5 Lymph % (Auto) 16.2 L [place] % (Auto) 7.8 Eos % (Auto) 1.7 Baso % (Auto) 0.8 Neut # 6.7 Lymph # 1.5 [place] # 0.7 Eos # 0.2 Baso # 0.1 PT 12.8 H INR 1.1 APTT 29 Sodium Potassium Chloride Carbon Dioxide Anion Gap BUN Creatinine Est GFR ( Amer) Est GFR (Non-Af Amer) Random Glucose Calcium Total Bilirubin AST ALT Alkaline Phosphatase Total Protein Albumin Globulin Albumin/Globulin Ratio Urine Color Yellow Urine Clarity Clear Urine pH 6.0 Ur Specific [place] 1.019 Urine Protein Negative Urine Glucose (UA) Normal Urine Ketones 1+ H Urine Blood Negative Urine Nitrate Negative Urine Bilirubin Negative Urine Urobilinogen Normal Ur Leukocyte Esterase Neg Urine WBC (Auto) < 1 Urine RBC (Auto) 2 Ur Squamous Epith Cells < 1 Ur Transition Epith Cell < 1 Urine Bacteria Rare Blood Type Antibody Screen 07/17/17 07/17/17 22:13 22:13 WBC RBC Hgb Hct MCV MCH MCHC RDW Plt Count MPV Neut % (Auto) Lymph % (Auto) [place] % (Auto) Eos % (Auto) Baso % (Auto) Neut # Lymph # [place] # Eos # Baso # PT INR APTT Sodium 137 Potassium 4.2 Chloride 101 Carbon Dioxide 22 Anion Gap 18 BUN 38 H Creatinine 0.8 Est GFR ( Amer) > 60 Est GFR (Non-Af Amer) > 60 Random Glucose 144 H Calcium 9.0 Total Bilirubin 0.6 AST 27 ALT 30 Alkaline Phosphatase 66 Total Protein 6.5 Albumin 3.7 Globulin 2.8 Albumin/Globulin Ratio 1.3 Urine Color Urine Clarity Urine pH Ur Specific [place] Urine Protein Urine Glucose (UA) Urine Ketones Urine Blood Urine Nitrate Urine Bilirubin Urine Urobilinogen Ur Leukocyte Esterase Urine WBC (Auto) Urine RBC (Auto) Ur Squamous Epith Cells Ur Transition Epith Cell Urine Bacteria Blood Type B POSITIVE Antibody Screen Negative Assessment & Plan - Assessment and Plan (Free Text) Assessment: Upper GI Bleed * GI (Marv) * NPO * H.pylori Ag * H. Pylori urea breath test * Held NSAIDs * Held Brilinta - check with cards when can restart * Protonix drip Hx of RI * Cards (Yordan) * Held Brilinta due to bleed - check with cards when can restart * Has stent in [place] * Crestor 5 PO HS * Norvasc 10 PO QD * Lopressor 25 PO Q12 HTN * Norvasc 10 PO QD * Catapres 0.1 PO HS * Hydralazine 50 PO BID * Lopressor 25 PO Q12 BPH * Flomax 0.4 PO HS DM * Metformin held * Accuchecks * Order ISS as needed PPX * Flonase * SCD * Ambulate * PT/OT - Date & Time Date: 07/18/17 Time: 07:46 Decision To Admit - Pt Status Changed To: Hospital Disposition Of: Observation - . Bed Request Type: Telemetry <Armin Rodas P - Last Filed: 07/18/17 07:52> Results - Vital Signs Recent Vital Signs: Last Vital Signs Temp 98.3 F 07/18/17 00:30 Pulse 84 07/18/17 01:00 Resp 20 07/18/17 00:30 BP 174/75 H 07/18/17 02:25 Pulse Ox 98 07/18/17 00:30 - Labs Result Diagrams: 07/17/17 22:13 07/17/17 22:13 Labs: Laboratory Results - last 24 hr 07/17/17 07/17/17 07/17/17 21:57 22:13 22:13 WBC 9.1 RBC 3.47 L Hgb 9.1 L Hct 28.0 L MCV 80.9 D MCH 26.4 L MCHC 32.6 L RDW 17.1 H Plt Count 167 MPV 11.0 Neut % (Auto) 73.5 Lymph % (Auto) 16.2 L [place] % (Auto) 7.8 Eos % (Auto) 1.7 Baso % (Auto) 0.8 Neut # 6.7 Lymph # 1.5 [place] # 0.7 Eos # 0.2 Baso # 0.1 PT 12.8 H INR 1.1 APTT 29 Sodium Potassium Chloride Carbon Dioxide Anion Gap BUN Creatinine Est GFR ( Amer) Est GFR (Non-Af Amer) POC Glucose (mg/dL) Random Glucose Calcium Iron TIBC % Saturation Total Bilirubin AST ALT Alkaline Phosphatase Total Protein Albumin Globulin Albumin/Globulin Ratio Urine Color Yellow Urine Clarity Clear Urine pH 6.0 Ur Specific [place] 1.019 Urine Protein Negative Urine Glucose (UA) Normal Urine Ketones 1+ H Urine Blood Negative Urine Nitrate Negative Urine Bilirubin Negative Urine Urobilinogen Normal Ur Leukocyte Esterase Neg Urine WBC (Auto) < 1 Urine RBC (Auto) 2 Ur Squamous Epith Cells < 1 Ur Transition Epith Cell < 1 Urine Bacteria Rare Blood Type Antibody Screen 07/17/17 07/17/17 07/18/17 22:13 22:13 06:10 WBC RBC Hgb Hct MCV MCH MCHC RDW Plt Count MPV Neut % (Auto) Lymph % (Auto) [place] % (Auto) Eos % (Auto) Baso % (Auto) Neut # Lymph # [place] # Eos # Baso # PT INR APTT Sodium 137 Potassium 4.2 Chloride 101 Carbon Dioxide 22 Anion Gap 18 BUN 38 H Creatinine 0.8 Est GFR ( Amer) > 60 Est GFR (Non-Af Amer) > 60 POC Glucose (mg/dL) Random Glucose 144 H Calcium 9.0 Iron 23 L TIBC 327 % Saturation 7 L Total Bilirubin 0.6 AST 27 ALT 30 Alkaline Phosphatase 66 Total Protein 6.5 Albumin 3.7 Globulin 2.8 Albumin/Globulin Ratio 1.3 Urine Color Urine Clarity Urine pH Ur Specific [place] Urine Protein Urine Glucose (UA) Urine Ketones Urine Blood Urine Nitrate Urine Bilirubin Urine Urobilinogen Ur Leukocyte Esterase Urine WBC (Auto) Urine RBC (Auto) Ur Squamous Epith Cells Ur Transition Epith Cell Urine Bacteria Blood Type B POSITIVE Antibody Screen Negative 07/18/17 07/18/17 06:10 06:34 WBC RBC Hgb Hct MCV MCH MCHC RDW Plt Count MPV Neut % (Auto) Lymph % (Auto) [place] % (Auto) Eos % (Auto) Baso % (Auto) Neut # Lymph # [place] # Eos # Baso # PT INR APTT Sodium Potassium Chloride Carbon Dioxide Anion Gap BUN Creatinine Est GFR ( Amer) Est GFR (Non-Af Amer) POC Glucose (mg/dL) 135 H Random Glucose Calcium Iron TIBC % Saturation 7 L Total Bilirubin AST ALT Alkaline Phosphatase Total Protein Albumin Globulin Albumin/Globulin Ratio Urine Color Urine Clarity Urine pH Ur Specific [place] Urine Protein Urine Glucose (UA) Urine Ketones Urine Blood Urine Nitrate Urine Bilirubin Urine Urobilinogen Ur Leukocyte Esterase Urine WBC (Auto) Urine RBC (Auto) Ur Squamous Epith Cells Ur Transition Epith Cell Urine Bacteria Blood Type Antibody Screen Attending/Attestation - Attestation I have personally seen and examined this patient.: Yes I have fully participated in the care of the patient.: Yes I have reviewed all pertinent clinical information: Yes Notes (Text): Assessment UGI bleed probably from combination of pills polypharmacy, mainly mobic, brilianta, asa, patient may have to continue brilianta and asa once acute UGI bleed episode is resolved. Maintained v/s, slow reduction in MCV suggesting chronic part as well. 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
[2017-07-18 06:30] LABS: IRON 23 ug/dL (49-181)
--- NOTE | 2017-07-18 07:29 | RAD ---
PROCEDURE: CHEST RADIOGRAPH, 1 VIEW HISTORY: GI Bleeding COMPARISON: None available. FINDINGS: LUNGS: Mild venous congestion. PLEURA: No pneumothorax or pleural fluid seen. CARDIOVASCULAR: Normal. OSSEOUS STRUCTURES: No significant abnormalities. VISUALIZED UPPER ABDOMEN: Normal. OTHER FINDINGS: None. IMPRESSION: Mild venous congestion.
--- NOTE | 2017-07-18 07:51 | CP.PCM.PN ---
Subjective - Date & Time of Evaluation Date of Evaluation: 07/17/17 Time of Evaluation: 22:00 - Subjective Subjective: Assessment * UGI bleed probably from combination of pills polypharmacy, mainly mobic, brilianta, asa, patient may have to continue brilianta and asa once acute UGI bleed episode is resolved. Maintained v/s, slow reduction in MCV suggesting chronic part as well. 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 Objective - Vital Signs/Intake and Output Vital Signs (last 24 hours): Temp Pulse Resp BP Pulse Ox 98.3 F 84 20 174/75 H 98 07/18/17 00:30 07/18/17 01:00 07/18/17 00:30 07/18/17 02:25 07/18/17 00:30 Intake and Output: 07/18/17 07/18/17 06:59 18:59 Intake Total 40 Output Total 300 Balance -260 - Medications Medications: Current Medications Amlodipine Besylate (Norvasc) 10 mg PO DAILY [place] Clonidine HCl (Catapres) 0.1 mg PO HS [facility] Fluticasone Propionate (Flonase) 2 spr NS DAILY [place] Home Med (Patient's Own Drops) 1 drop OU TID [place] Hydralazine HCl (Apresoline) 50 mg PO BID [facility] Pantoprazole Sodium 80 mg/ (Sodium Chloride) 100 mls @ 10 mls/hr IVPB .Q10H [place] PRN Reason: 8 MG/HR Last Admin: 07/18/17 03:00 Dose: 10 mls/hr Losartan Potassium (Cozaar) 100 mg PO DAILY [facility] Metoprolol Tartrate (Lopressor) 25 mg PO Q12 [facility] Last Admin: 07/18/17 02:25 Dose: 25 mg Rosuvastatin Calcium (Crestor) 5 mg PO HS [facility] Tamsulosin HCl (Flomax) 0.4 mg PO HS [facility] - Labs Labs: 07/17/17 22:13 07/17/17 22:13 PT 12.8 SECONDS (9.7-12.2) H 07/17/17 22:13 INR 1.1 07/17/17 22:13 APTT 29 SECONDS (21-34) 07/17/17 22:13
[2017-07-18 09:16] LABS: BASO # 0.1 K/uL (0.0-0.2); LYMPH # 1.2 K/uL (1.0-4.3); MEAN CORPUSCULAR HEMOGLOBIN 26.7 pg (27.0-31.0)
[2017-07-18 09:21] LABS: BASO % 0.9 % (0.0-2.0); EOS % 0.6 % (0.0-4.0); HEMATOCRIT 20.1 % (35.0-51.0); LYMPH % 14.9 % (20.0-40.0); MEAN CELL VOLUME 80.6 fL (80.0-94.0); MEAN CORPUSCULAR HGB CONC 33.2 g/dL (33.0-37.0); MEAN PLATELET VOLUME 10.8 fL (7.2-11.7); MONO # 0.8 K/uL (0.0-0.8); MONO % 9.7 % (0.0-10.0); RED CELL DISTRIBUTION WIDTH 17.6 % (11.5-14.5); WHITE BLOOD COUNT 7.8 K/uL (4.8-10.8)
[2017-07-18 09:27] LABS: CHLORIDE 108 mmol/L (98-107); POTASSIUM 4.2 mmol/L (3.6-5.2); SODIUM 140 mmol/L (132-148)
[2017-07-18 09:29] LABS: BILIRUBIN,TOTAL 0.6 mg/dL (0.2-1.3); CARBON DIOXIDE 22 mmol/L (22-30); GFR AFRICAN-AMERICAN > 60
[2017-07-18 09:30] LABS: ALB/GLOB RATIO 1.2 (1.0-2.1); ALKALINE PHOSPHATASE 48 U/L (38-126); ALT/SGPT 29 U/L (21-72); AST/SGOT 20 U/L (17-59); BLOOD UREA NITROGEN 43 mg/dL (9-20); CALCIUM 8.5 mg/dl (8.6-10.4); GLUCOSE,RANDOM 105 mg/dL (75-110); TOTAL PROTEIN 5.4 g/dL (6.3-8.3)
[2017-07-18] MEDS: Fluticasone Nasal 50 mcg/Spray NS SCH (09:40)
[2017-07-18] MEDS: BESIVANCE 0.6% OU SCH ×3 (09:41→17:49)
[2017-07-18] MEDS ORDERED: Sodium Chloride 0.9% 1,000 ML IV ONE (09:56)
--- NOTE | 2017-07-18 11:16 | RAD ---
Chest x-ray single frontal view History: IV infusion. Comparison: 07/17/2017 Findings: Mild venous congestion. Cardiomegaly. Tortuous ectatic aorta. Biapical pleural thickening with upper lobe granulomatous changes. Impression: Mild venous congestion. Cardiomegaly.
[2017-07-18] MEDS: Sodium Chloride 0.9% 1,000 ML IV SCH ×2 (11:32→17:40)
--- NOTE | 2017-07-18 12:42 | CP.PCM.CON ---
History of Present Illness - History of Present Illness History of Present Illness: COVERING DR VALLE 77 yo male well known to Dr Valle who was admitted 03/2017 with chest pain and was found to have coronary disease resulting in placement of a stent. Patient had GI bleed with drop in H/H and was found to have a superficial Gastric ulcer that was clipped and H. pylori that was treated as an outpatient according to family. Colonscopy was done in April showing hemorrhoids and diverticulosis. Patient has been on Brillanta, ASA for his stent and takes Mobic daily for back pain. Has had four episodes of coffee ground and blood tinged emesis two in ER and two witnessed on floor at bedside. No pain, CP, SOB , LOC. Review of Systems - Cardiovascular Cardiovascular: Dyspnea on Exertion. absent: Chest Pain - Respiratory Respiratory: absent: Cough, Wheezing - Gastrointestinal Gastrointestinal: As Per HPI, Coffee Ground Emesis. absent: Heartburn Past Patient History - Past Medical History & Family History Past Medical History?: Yes - Past Social History Smoking Status: Former Smoker Alcohol: None Drugs: Denies - CARDIAC Hx Cardiac Disorders: Yes Hx Hypertension: Yes - PULMONARY Hx Respiratory Disorders: No - NEUROLOGICAL Hx Neurological Disorder: Yes HX Cerebrovascular Accident: Yes (left facial weakness and slurred speech in 2000) - HEENT Hx HEENT Problems: Yes Hx Cataracts: (cataract surgery 2016) - RENAL Hx Chronic Kidney Disease: No - ENDOCRINE/METABOLIC Hx Endocrine Disorders: Yes Hx Diabetes Mellitus Type 2: Yes - HEMATOLOGICAL/ONCOLOGICAL Hx Blood Disorders: No Hx Cirrhosis: No Hx Hepatitis A: No Hx Hepatitis B: No Hx Hepatitis C: No Hx Human Immunodeficiency Virus (HIV): No - INTEGUMENTARY Hx Dermatological Problems: No - MUSCULOSKELETAL/RHEUMATOLOGICAL Hx Musculoskeletal Disorders: Yes Hx Arthritis: Yes Hx Falls: No - GASTROINTESTINAL Hx Gastrointestinal Disorders: Yes Hx Bowel Surgery: No Hx Clostridium Difficile: No Hx Colitis: No Hx Colostomy: No Hx Constipation: No Hx Crohn's Disease: No Hx Diarrhea: No Hx Diverticulitis: Yes (diverticulosis by colonoscopy 2016) Hx Esophageal Varices: No Hx Fatty Liver Disease: No Hx Gall Bladder Disease: No Hx Gastritis: Yes Hx Gastroesophageal Reflux: No Hx Hemorrhoids: Yes Hx Ileostomy: No Hx Irritable Bowel: No Hx Liver Failure: No Hx Nausea: Yes Hx Pancreatitis: No HX Swallowing Problems: No Hx Ulcer: Yes (gastric ulcer (04/11)) Hx Vomiting: Yes (coffee grounds emesis x 24 hours) - GENITOURINARY/GYNECOLOGICAL Hx Genitourinary Disorders: No - PSYCHIATRIC Hx Psychophysiologic Disorder: No Hx Substance Use: No - SURGICAL HISTORY Hx Surgeries: Yes Hx Appendectomy: Yes (1960) - ANESTHESIA Hx Anesthesia: Yes Hx Anesthesia Reactions: No Hx Malignant Hyperthermia: No Meds Allergies/Adverse Reactions: Allergies Allergy/AdvReac Type Severity Reaction Status Date / Time No Known Allergies Allergy Verified 04/04/17 23:48 - Medications Medications: Current Medications Clonidine HCl (Catapres) 0.1 mg PO HS [facility] Fluticasone Propionate (Flonase) 2 spr NS DAILY [facility] Last Admin: 07/18/17 09:40 Dose: 2 spr Home Med (Patient's Own Drops) 1 drop OU TID [facility] Last Admin: 07/18/17 09:41 Dose: 1 drop Pantoprazole Sodium 80 mg/ (Sodium Chloride) 100 mls @ 10 mls/hr IVPB .Q10H [facility] PRN Reason: 8 MG/HR Last Admin: 07/18/17 12:21 Dose: 10 mls/hr Sodium Chloride (Sodium Chloride 0.9%) 1,000 mls @ 150 mls/hr IV .Q6H40M [facility] Last Admin: 07/18/17 11:32 Dose: 150 mls/hr Rosuvastatin Calcium (Crestor) 5 mg PO HS [facility] Tamsulosin HCl (Flomax) 0.4 mg PO HS [facility] Physical Exam - Constitutional Appears: No Acute Distress - Head Exam Head Exam: ATRAUMATIC, NORMOCEPHALIC - Eye Exam Eye Exam: EOMI, PERRL - Respiratory Exam Respiratory Exam: NORMAL BREATHING PATTERN - Cardiovascular Exam Cardiovascular Exam: REGULAR RHYTHM, +S1 - GI/Abdominal Exam GI & Abdominal Exam: Hyperactive Bowel Sounds, Soft. absent: Distended, Guarding, Mass, Rebound, Rigid, Tenderness - Rectal Exam Additional comments: no stool to examine. no masses. - Extremities Exam Extremities exam: Positive for: normal inspection - Neurological Exam Neurological exam: Alert, Oriented x3 - Psychiatric Exam Psychiatric exam: Normal Affect, Normal Mood Results - Vital Signs Recent Vital Signs: Last Vital Signs Temp 98.3 F 07/18/17 07:30 Pulse 98 H 07/18/17 08:00 Resp 20 07/18/17 07:30 BP 122/62 07/18/17 09:30 Pulse Ox 96 07/18/17 07:30 - Labs Result Diagrams: 07/18/17 09:10 07/18/17 09:10 Labs: Laboratory Results - last 24 hr 07/17/17 07/17/17 07/17/17 21:57 22:13 22:13 WBC 9.1 RBC 3.47 L Hgb 9.1 L Hct 28.0 L MCV 80.9 D MCH 26.4 L MCHC 32.6 L RDW 17.1 H Plt Count 167 MPV 11.0 Neut % (Auto) 73.5 Lymph % (Auto) 16.2 L [place] % (Auto) 7.8 Eos % (Auto) 1.7 Baso % (Auto) 0.8 Neut # 6.7 Lymph # 1.5 [place] # 0.7 Eos # 0.2 Baso # 0.1 PT 12.8 H INR 1.1 APTT 29 Sodium Potassium Chloride Carbon Dioxide Anion Gap BUN Creatinine Est GFR ( Amer) Est GFR (Non-Af Amer) POC Glucose (mg/dL) Random Glucose Calcium Iron TIBC % Saturation Total Bilirubin AST ALT Alkaline Phosphatase Total Protein Albumin Globulin Albumin/Globulin Ratio Urine Color Yellow Urine Clarity Clear Urine pH 6.0 Ur Specific [place] 1.019 Urine Protein Negative Urine Glucose (UA) Normal Urine Ketones 1+ H Urine Blood Negative Urine Nitrate Negative Urine Bilirubin Negative Urine Urobilinogen Normal Ur Leukocyte Esterase Neg Urine WBC (Auto) < 1 Urine RBC (Auto) 2 Ur Squamous Epith Cells < 1 Ur Transition Epith Cell < 1 Urine Bacteria Rare Blood Type Antibody Screen 07/17/17 07/17/17 07/18/17 22:13 22:13 06:10 WBC RBC Hgb Hct MCV MCH MCHC RDW Plt Count MPV Neut % (Auto) Lymph % (Auto) [place] % (Auto) Eos % (Auto) Baso % (Auto) Neut # Lymph # [place] # Eos # Baso # PT INR APTT Sodium 137 Potassium 4.2 Chloride 101 Carbon Dioxide 22 Anion Gap 18 BUN 38 H Creatinine 0.8 Est GFR ( Amer) > 60 Est GFR (Non-Af Amer) > 60 POC Glucose (mg/dL) Random Glucose 144 H Calcium 9.0 Iron 23 L TIBC 327 % Saturation 7 L Total Bilirubin 0.6 AST 27 ALT 30 Alkaline Phosphatase 66 Total Protein 6.5 Albumin 3.7 Globulin 2.8 Albumin/Globulin Ratio 1.3 Urine Color Urine Clarity Urine pH Ur Specific [place] Urine Protein Urine Glucose (UA) Urine Ketones Urine Blood Urine Nitrate Urine Bilirubin Urine Urobilinogen Ur Leukocyte Esterase Urine WBC (Auto) Urine RBC (Auto) Ur Squamous Epith Cells Ur Transition Epith Cell Urine Bacteria Blood Type B POSITIVE Antibody Screen Negative 07/18/17 07/18/17 07/18/17 06:10 06:34 09:10 WBC 7.8 RBC 2.50 L Hgb 6.7 L D Hct 20.1 L MCV 80.6 MCH 26.7 L MCHC 33.2 RDW 17.6 H Plt Count 140 MPV 10.8 Neut % (Auto) 73.9 Lymph % (Auto) 14.9 L [place] % (Auto) 9.7 Eos % (Auto) 0.6 Baso % (Auto) 0.9 Neut # 5.8 Lymph # 1.2 [place] # 0.8 Eos # 0.0 Baso # 0.1 PT INR APTT Sodium Potassium Chloride Carbon Dioxide Anion Gap BUN Creatinine Est GFR ( Amer) Est GFR (Non-Af Amer) POC Glucose (mg/dL) 135 H Random Glucose Calcium Iron TIBC % Saturation 7 L Total Bilirubin AST ALT Alkaline Phosphatase Total Protein Albumin Globulin Albumin/Globulin Ratio Urine Color Urine Clarity Urine pH Ur Specific [place] Urine Protein Urine Glucose (UA) Urine Ketones Urine Blood Urine Nitrate Urine Bilirubin Urine Urobilinogen Ur Leukocyte Esterase Urine WBC (Auto) Urine RBC (Auto) Ur Squamous Epith Cells Ur Transition Epith Cell Urine Bacteria Blood Type Antibody Screen 07/18/17 07/18/17 07/18/17 09:10 10:04 11:26 WBC RBC Hgb Hct MCV MCH MCHC RDW Plt Count MPV Neut % (Auto) Lymph % (Auto) [place] % (Auto) Eos % (Auto) Baso % (Auto) Neut # Lymph # [place] # Eos # Baso # PT INR APTT Sodium 140 Potassium 4.2 Chloride 108 H Carbon Dioxide 22 Anion Gap 15 BUN 43 H Creatinine 0.8 Est GFR ( Amer) > 60 Est GFR (Non-Af Amer) > 60 POC Glucose (mg/dL) 138 H Random Glucose 105 Calcium 8.5 L Iron TIBC % Saturation Total Bilirubin 0.6 AST 20 ALT 29 Alkaline Phosphatase 48 Total Protein 5.4 L Albumin 2.9 L D Globulin 2.5 Albumin/Globulin Ratio 1.2 Urine Color Urine Clarity Urine pH Ur Specific [place] Urine Protein Urine Glucose (UA) Urine Ketones Urine Blood Urine Nitrate Urine Bilirubin Urine Urobilinogen Ur Leukocyte Esterase Urine WBC (Auto) Urine RBC (Auto) Ur Squamous Epith Cells Ur Transition Epith Cell Urine Bacteria Blood Type B POSITIVE Antibody Screen Negative Assessment & Plan (1) Presence of stent in coronary artery in patient with coronary artery disease Status: Chronic (2) H/O gastric ulcer Status: Acute (3) Anemia due to blood loss, acute Assessment and Plan: Transfuse to hgb - 10 prior to endoscopy. Improve oxygen delivery to heart and brain. Monitor H/H. Status: Acute (4) Hematemesis Assessment and Plan: Coffee ground emesis with elevation of BUN/Cr ratio and 3 gram drop in H/H since admission. Patient with recent gastric ulcer due to anti-platelet Rx and H.pylori +. Patient has been on Brillanta, Asa and Mobic all of which have risk for being ulcerogenic and causing bleeding. Nsaids should typically not be used in conjunction with the antiplatelet drugs used to maintain stent patency. Unclear if patient has been taking consistent PPI prophylaxis or not after prior bleeding ulcer treated. Plan for EGD in am. Hold all blood thinning medications. IV Protonic drip Keep NPO and Zofran for nausea May need NGT if vomiting persists. Status: Acute
--- NOTE | 2017-07-18 14:07 | CP.PCM.CON ---
Past Patient History - Past Medical History & Family History Past Medical History?: Yes - Past Social History Smoking Status: Former Smoker Alcohol: None Drugs: Denies - CARDIAC Hx Cardiac Disorders: Yes Hx Hypertension: Yes - PULMONARY Hx Respiratory Disorders: No - NEUROLOGICAL Hx Neurological Disorder: Yes HX Cerebrovascular Accident: Yes (left facial weakness and slurred speech in 2000) - HEENT Hx HEENT Problems: Yes Hx Cataracts: (cataract surgery 2016) - RENAL Hx Chronic Kidney Disease: No - ENDOCRINE/METABOLIC Hx Endocrine Disorders: Yes Hx Diabetes Mellitus Type 2: Yes - HEMATOLOGICAL/ONCOLOGICAL Hx Blood Disorders: No Hx Cirrhosis: No Hx Hepatitis A: No Hx Hepatitis B: No Hx Hepatitis C: No Hx Human Immunodeficiency Virus (HIV): No - INTEGUMENTARY Hx Dermatological Problems: No - MUSCULOSKELETAL/RHEUMATOLOGICAL Hx Musculoskeletal Disorders: Yes Hx Arthritis: Yes Hx Falls: No - GASTROINTESTINAL Hx Gastrointestinal Disorders: Yes Hx Bowel Surgery: No Hx Clostridium Difficile: No Hx Colitis: No Hx Colostomy: No Hx Constipation: No Hx Crohn's Disease: No Hx Diarrhea: No Hx Diverticulitis: Yes (diverticulosis by colonoscopy 2016) Hx Esophageal Varices: No Hx Fatty Liver Disease: No Hx Gall Bladder Disease: No Hx Gastritis: Yes Hx Gastroesophageal Reflux: No Hx Hemorrhoids: Yes Hx Ileostomy: No Hx Irritable Bowel: No Hx Liver Failure: No Hx Nausea: Yes Hx Pancreatitis: No HX Swallowing Problems: No Hx Ulcer: Yes (gastric ulcer (04/11)) Hx Vomiting: Yes (coffee grounds emesis x 24 hours) - GENITOURINARY/GYNECOLOGICAL Hx Genitourinary Disorders: No - PSYCHIATRIC Hx Psychophysiologic Disorder: No Hx Substance Use: No - SURGICAL HISTORY Hx Surgeries: Yes Hx Appendectomy: Yes (1960) - ANESTHESIA Hx Anesthesia: Yes Hx Anesthesia Reactions: No Hx Malignant Hyperthermia: No Meds Allergies/Adverse Reactions: Allergies Allergy/AdvReac Type Severity Reaction Status Date / Time No Known Allergies Allergy Verified 04/04/17 23:48 - Medications Medications: Current Medications Clonidine HCl (Catapres) 0.1 mg PO HS [facility] Fluticasone Propionate (Flonase) 2 spr NS DAILY [facility] Last Admin: 07/18/17 09:40 Dose: 2 spr Home Med (Patient's Own Drops) 1 drop OU TID [facility] Last Admin: 07/18/17 14:05 Dose: 1 drop Pantoprazole Sodium 80 mg/ (Sodium Chloride) 100 mls @ 10 mls/hr IVPB .Q10H [facility] PRN Reason: 8 MG/HR Last Admin: 07/18/17 12:21 Dose: 10 mls/hr Sodium Chloride (Sodium Chloride 0.9%) 1,000 mls @ 150 mls/hr IV .Q6H40M [facility] Last Admin: 07/18/17 11:32 Dose: 150 mls/hr Ondansetron HCl (Zofran Inj) 4 mg IVP Q6H PRN PRN Reason: Nausea/Vomiting Rosuvastatin Calcium (Crestor) 5 mg PO HS [facility] Tamsulosin HCl (Flomax) 0.4 mg PO HS [facility] Results - Vital Signs Recent Vital Signs: Last Vital Signs Temp 98.3 F 07/18/17 12:56 Pulse 76 07/18/17 12:56 Resp 18 07/18/17 12:56 BP 144/61 07/18/17 12:56 Pulse Ox 96 07/18/17 07:30 - Labs Result Diagrams: 07/18/17 09:10 07/18/17 09:10 Labs: Laboratory Results - last 24 hr 07/17/17 07/17/17 07/17/17 21:57 22:13 22:13 WBC 9.1 RBC 3.47 L Hgb 9.1 L Hct 28.0 L MCV 80.9 D MCH 26.4 L MCHC 32.6 L RDW 17.1 H Plt Count 167 MPV 11.0 Neut % (Auto) 73.5 Lymph % (Auto) 16.2 L [place] % (Auto) 7.8 Eos % (Auto) 1.7 Baso % (Auto) 0.8 Neut # 6.7 Lymph # 1.5 [place] # 0.7 Eos # 0.2 Baso # 0.1 PT 12.8 H INR 1.1 APTT 29 Sodium Potassium Chloride Carbon Dioxide Anion Gap BUN Creatinine Est GFR ( Amer) Est GFR (Non-Af Amer) POC Glucose (mg/dL) Random Glucose Calcium Iron TIBC % Saturation Total Bilirubin AST ALT Alkaline Phosphatase Total Protein Albumin Globulin Albumin/Globulin Ratio Urine Color Yellow Urine Clarity Clear Urine pH 6.0 Ur Specific [place] 1.019 Urine Protein Negative Urine Glucose (UA) Normal Urine Ketones 1+ H Urine Blood Negative Urine Nitrate Negative Urine Bilirubin Negative Urine Urobilinogen Normal Ur Leukocyte Esterase Neg Urine WBC (Auto) < 1 Urine RBC (Auto) 2 Ur Squamous Epith Cells < 1 Ur Transition Epith Cell < 1 Urine Bacteria Rare Blood Type Antibody Screen 07/17/17 07/17/17 07/18/17 22:13 22:13 06:10 WBC RBC Hgb Hct MCV MCH MCHC RDW Plt Count MPV Neut % (Auto) Lymph % (Auto) [place] % (Auto) Eos % (Auto) Baso % (Auto) Neut # Lymph # [place] # Eos # Baso # PT INR APTT Sodium 137 Potassium 4.2 Chloride 101 Carbon Dioxide 22 Anion Gap 18 BUN 38 H Creatinine 0.8 Est GFR ( Amer) > 60 Est GFR (Non-Af Amer) > 60 POC Glucose (mg/dL) Random Glucose 144 H Calcium 9.0 Iron 23 L TIBC 327 % Saturation 7 L Total Bilirubin 0.6 AST 27 ALT 30 Alkaline Phosphatase 66 Total Protein 6.5 Albumin 3.7 Globulin 2.8 Albumin/Globulin Ratio 1.3 Urine Color Urine Clarity Urine pH Ur Specific [place] Urine Protein Urine Glucose (UA) Urine Ketones Urine Blood Urine Nitrate Urine Bilirubin Urine Urobilinogen Ur Leukocyte Esterase Urine WBC (Auto) Urine RBC (Auto) Ur Squamous Epith Cells Ur Transition Epith Cell Urine Bacteria Blood Type B POSITIVE Antibody Screen Negative 07/18/17 07/18/17 07/18/17 06:10 06:34 09:10 WBC 7.8 RBC 2.50 L Hgb 6.7 L D Hct 20.1 L MCV 80.6 MCH 26.7 L MCHC 33.2 RDW 17.6 H Plt Count 140 MPV 10.8 Neut % (Auto) 73.9 Lymph % (Auto) 14.9 L [place] % (Auto) 9.7 Eos % (Auto) 0.6 Baso % (Auto) 0.9 Neut # 5.8 Lymph # 1.2 [place] # 0.8 Eos # 0.0 Baso # 0.1 PT INR APTT Sodium Potassium Chloride Carbon Dioxide Anion Gap BUN Creatinine Est GFR ( Amer) Est GFR (Non-Af Amer) POC Glucose (mg/dL) 135 H Random Glucose Calcium Iron TIBC % Saturation 7 L Total Bilirubin AST ALT Alkaline Phosphatase Total Protein Albumin Globulin Albumin/Globulin Ratio Urine Color Urine Clarity Urine pH Ur Specific [place] Urine Protein Urine Glucose (UA) Urine Ketones Urine Blood Urine Nitrate Urine Bilirubin Urine Urobilinogen Ur Leukocyte Esterase Urine WBC (Auto) Urine RBC (Auto) Ur Squamous Epith Cells Ur Transition Epith Cell Urine Bacteria Blood Type Antibody Screen 07/18/17 07/18/17 07/18/17 09:10 10:04 11:26 WBC RBC Hgb Hct MCV MCH MCHC RDW Plt Count MPV Neut % (Auto) Lymph % (Auto) [place] % (Auto) Eos % (Auto) Baso % (Auto) Neut # Lymph # [place] # Eos # Baso # PT INR APTT Sodium 140 Potassium 4.2 Chloride 108 H Carbon Dioxide 22 Anion Gap 15 BUN 43 H Creatinine 0.8 Est GFR ( Amer) > 60 Est GFR (Non-Af Amer) > 60 POC Glucose (mg/dL) 138 H Random Glucose 105 Calcium 8.5 L Iron TIBC % Saturation Total Bilirubin 0.6 AST 20 ALT 29 Alkaline Phosphatase 48 Total Protein 5.4 L Albumin 2.9 L D Globulin 2.5 Albumin/Globulin Ratio 1.2 Urine Color Urine Clarity Urine pH Ur Specific [place] Urine Protein Urine Glucose (UA) Urine Ketones Urine Blood Urine Nitrate Urine Bilirubin Urine Urobilinogen Ur Leukocyte Esterase Urine WBC (Auto) Urine RBC (Auto) Ur Squamous Epith Cells Ur Transition Epith Cell Urine Bacteria Blood Type B POSITIVE Antibody Screen Negative
--- NOTE | 2017-07-18 14:07 | CP.PCM.CON ---
History of Present Illness - History of Present Illness History of Present Illness: Patient seen examined. history of CAD s/p PCI LAD 5 months ago who presents wtih GI bleed. Currently no angina. was on ASA 81 mg daily, Brilinta 90 mg BID. In light of GI bleed will hold antiplatelet therapy and await endoscopy. There is no cardiovascular contraindication to EGD. Past Patient History - Past Medical History & Family History Past Medical History?: Yes - Past Social History Smoking Status: Former Smoker Alcohol: None Drugs: Denies - CARDIAC Hx Cardiac Disorders: Yes Hx Hypertension: Yes - PULMONARY Hx Respiratory Disorders: No - NEUROLOGICAL Hx Neurological Disorder: Yes HX Cerebrovascular Accident: Yes (left facial weakness and slurred speech in 2000) - HEENT Hx HEENT Problems: Yes Hx Cataracts: (cataract surgery 2016) - RENAL Hx Chronic Kidney Disease: No - ENDOCRINE/METABOLIC Hx Endocrine Disorders: Yes Hx Diabetes Mellitus Type 2: Yes - HEMATOLOGICAL/ONCOLOGICAL Hx Blood Disorders: No Hx Cirrhosis: No Hx Hepatitis A: No Hx Hepatitis B: No Hx Hepatitis C: No Hx Human Immunodeficiency Virus (HIV): No - INTEGUMENTARY Hx Dermatological Problems: No - MUSCULOSKELETAL/RHEUMATOLOGICAL Hx Musculoskeletal Disorders: Yes Hx Arthritis: Yes Hx Falls: No - GASTROINTESTINAL Hx Gastrointestinal Disorders: Yes Hx Bowel Surgery: No Hx Clostridium Difficile: No Hx Colitis: No Hx Colostomy: No Hx Constipation: No Hx Crohn's Disease: No Hx Diarrhea: No Hx Diverticulitis: Yes (diverticulosis by colonoscopy 2016) Hx Esophageal Varices: No Hx Fatty Liver Disease: No Hx Gall Bladder Disease: No Hx Gastritis: Yes Hx Gastroesophageal Reflux: No Hx Hemorrhoids: Yes Hx Ileostomy: No Hx Irritable Bowel: No Hx Liver Failure: No Hx Nausea: Yes Hx Pancreatitis: No HX Swallowing Problems: No Hx Ulcer: Yes (gastric ulcer (04/11)) Hx Vomiting: Yes (coffee grounds emesis x 24 hours) - GENITOURINARY/GYNECOLOGICAL Hx Genitourinary Disorders: No - PSYCHIATRIC Hx Psychophysiologic Disorder: No Hx Substance Use: No - SURGICAL HISTORY Hx Surgeries: Yes Hx Appendectomy: Yes (1960) - ANESTHESIA Hx Anesthesia: Yes Hx Anesthesia Reactions: No Hx Malignant Hyperthermia: No Meds Allergies/Adverse Reactions: Allergies Allergy/AdvReac Type Severity Reaction Status Date / Time No Known Allergies Allergy Verified 04/04/17 23:48 - Medications Medications: Current Medications Clonidine HCl (Catapres) 0.1 mg PO HS [facility] Fluticasone Propionate (Flonase) 2 spr NS DAILY [facility] Last Admin: 07/18/17 09:40 Dose: 2 spr Home Med (Patient's Own Drops) 1 drop OU TID [facility] Last Admin: 07/18/17 09:41 Dose: 1 drop Pantoprazole Sodium 80 mg/ (Sodium Chloride) 100 mls @ 10 mls/hr IVPB .Q10H [facility] PRN Reason: 8 MG/HR Last Admin: 07/18/17 12:21 Dose: 10 mls/hr Sodium Chloride (Sodium Chloride 0.9%) 1,000 mls @ 150 mls/hr IV .Q6H40M [facility] Last Admin: 07/18/17 11:32 Dose: 150 mls/hr Ondansetron HCl (Zofran Inj) 4 mg IVP Q6H PRN PRN Reason: Nausea/Vomiting Rosuvastatin Calcium (Crestor) 5 mg PO HS [facility] Tamsulosin HCl (Flomax) 0.4 mg PO HS [facility] Results - Vital Signs Recent Vital Signs: Last Vital Signs Temp 98.3 F 07/18/17 12:56 Pulse 76 07/18/17 12:56 Resp 18 07/18/17 12:56 BP 144/61 07/18/17 12:56 Pulse Ox 96 07/18/17 07:30 - Labs Result Diagrams: 07/18/17 09:10 07/18/17 09:10 Labs: Laboratory Results - last 24 hr 07/17/17 07/17/17 07/17/17 21:57 22:13 22:13 WBC 9.1 RBC 3.47 L Hgb 9.1 L Hct 28.0 L MCV 80.9 D MCH 26.4 L MCHC 32.6 L RDW 17.1 H Plt Count 167 MPV 11.0 Neut % (Auto) 73.5 Lymph % (Auto) 16.[address] [place] % (Auto) 7.8 Eos % (Auto) 1.7 Baso % (Auto) 0.8 Neut # 6.7 Lymph # 1.5 [place] # 0.7 Eos # 0.2 Baso # 0.1 PT 12.8 H INR 1.1 APTT 29 Sodium Potassium Chloride Carbon Dioxide Anion Gap BUN Creatinine Est GFR ( Amer) Est GFR (Non-Af Amer) POC Glucose (mg/dL) Random Glucose Calcium Iron TIBC % Saturation Total Bilirubin AST ALT Alkaline Phosphatase Total Protein Albumin Globulin Albumin/Globulin Ratio Urine Color Yellow Urine Clarity Clear Urine pH 6.0 Ur Specific [place] 1.019 Urine Protein Negative Urine Glucose (UA) Normal Urine Ketones 1+ H Urine Blood Negative Urine Nitrate Negative Urine Bilirubin Negative Urine Urobilinogen Normal Ur Leukocyte Esterase Neg Urine WBC (Auto) < 1 Urine RBC (Auto) 2 Ur Squamous Epith Cells < 1 Ur Transition Epith Cell < 1 Urine Bacteria Rare Blood Type Antibody Screen 07/17/17 07/17/17 07/18/17 22:13 22:13 06:10 WBC RBC Hgb Hct MCV MCH MCHC RDW Plt Count MPV Neut % (Auto) Lymph % (Auto) [place] % (Auto) Eos % (Auto) Baso % (Auto) Neut # Lymph # [place] # Eos # Baso # PT INR APTT Sodium 137 Potassium 4.2 Chloride 101 Carbon Dioxide 22 Anion Gap 18 BUN 38 H Creatinine 0.8 Est GFR ( Amer) > 60 Est GFR (Non-Af Amer) > 60 POC Glucose (mg/dL) Random Glucose 144 H Calcium 9.0 Iron 23 L TIBC 327 % Saturation 7 L Total Bilirubin 0.6 AST 27 ALT 30 Alkaline Phosphatase 66 Total Protein 6.5 Albumin 3.7 Globulin 2.8 Albumin/Globulin Ratio 1.3 Urine Color Urine Clarity Urine pH Ur Specific [place] Urine Protein Urine Glucose (UA) Urine Ketones Urine Blood Urine Nitrate Urine Bilirubin Urine Urobilinogen Ur Leukocyte Esterase Urine WBC (Auto) Urine RBC (Auto) Ur Squamous Epith Cells Ur Transition Epith Cell Urine Bacteria Blood Type B POSITIVE Antibody Screen Negative 07/18/17 07/18/17 07/18/17 06:10 06:34 09:10 WBC 7.8 RBC 2.50 L Hgb 6.7 L D Hct 20.1 L MCV 80.6 MCH 26.7 L MCHC 33.2 RDW 17.6 H Plt Count 140 MPV 10.8 Neut % (Auto) 73.9 Lymph % (Auto) 14.[address] [place] % (Auto) 9.7 Eos % (Auto) 0.6 Baso % (Auto) 0.9 Neut # 5.8 Lymph # 1.2 [place] # 0.8 Eos # 0.0 Baso # 0.1 PT INR APTT Sodium Potassium Chloride Carbon Dioxide Anion Gap BUN Creatinine Est GFR ( Amer) Est GFR (Non-Af Amer) POC Glucose (mg/dL) 135 H Random Glucose Calcium Iron TIBC % Saturation 7 L Total Bilirubin AST ALT Alkaline Phosphatase Total Protein Albumin Globulin Albumin/Globulin Ratio Urine Color Urine Clarity Urine pH Ur Specific [place] Urine Protein Urine Glucose (UA) Urine Ketones Urine Blood Urine Nitrate Urine Bilirubin Urine Urobilinogen Ur Leukocyte Esterase Urine WBC (Auto) Urine RBC (Auto) Ur Squamous Epith Cells Ur Transition Epith Cell Urine Bacteria Blood Type Antibody Screen 07/18/17 07/18/17 07/18/17 09:10 10:04 11:26 WBC RBC Hgb Hct MCV MCH MCHC RDW Plt Count MPV Neut % (Auto) Lymph % (Auto) [place] % (Auto) Eos % (Auto) Baso % (Auto) Neut # Lymph # [place] # Eos # Baso # PT INR APTT Sodium 140 Potassium 4.2 Chloride 108 H Carbon Dioxide 22 Anion Gap 15 BUN 43 H Creatinine 0.8 Est GFR ( Amer) > 60 Est GFR (Non-Af Amer) > 60 POC Glucose (mg/dL) 138 H Random Glucose 105 Calcium 8.5 L Iron TIBC % Saturation Total Bilirubin 0.6 AST 20 ALT 29 Alkaline Phosphatase 48 Total Protein 5.4 L Albumin 2.9 L D Globulin 2.5 Albumin/Globulin Ratio 1.2 Urine Color Urine Clarity Urine pH Ur Specific [place] Urine Protein Urine Glucose (UA) Urine Ketones Urine Blood Urine Nitrate Urine Bilirubin Urine Urobilinogen Ur Leukocyte Esterase Urine WBC (Auto) Urine RBC (Auto) Ur Squamous Epith Cells Ur Transition Epith Cell Urine Bacteria Blood Type B POSITIVE Antibody Screen Negative
--- NOTE | 2017-07-18 18:04 | CT ---
EXAM: CT Abdomen and Pelvis Without Intravenous Contrast EXAM DATE/TIME: Exam ordered 07/18/2017 3:05 PM CLINICAL HISTORY: 77 years old, male; Condition or disease; Intestinal condition; Other: Active gi bleed; Additional info: Abdominal distension, active gi bleed TECHNIQUE: Axial computed tomography images of the abdomen and pelvis without intravenous contrast. All CT scans at this facility use one or more dose reduction techniques, viz.: automated exposure control; ma/kV adjustment per patient size (including targeted exams where dose is matched to indication; i.e. head); or iterative reconstruction technique. Coronal and sagittal reformatted images were created and reviewed. COMPARISON: US - ABDOMEN COMPLETE 02/29/2016 9:24:56 AM FINDINGS: Lower thorax: There is bronchiectasis at both lung bases, right greater than left ABDOMEN: Liver: Unremarkable. Gallbladder and bile ducts: Unremarkable. No calcified stones. No ductal dilation. Pancreas: There is near complete fatty replacement of the pancreas with preservation of a small island of pancreatic tissue in the head.. Spleen: Unremarkable. No splenomegaly. Adrenals: Unremarkable. No mass. Kidneys and ureters: There is a nonobstructing 3.3 mm calcification in the lower pole of the left kidney. There is a 1.1 cm hyperdense lesion in the midportion of the right kidney with a density measurement of 90 H. There is a low density lesion arising from the posterior aspect of the midportion of the right kidney measuring approximately 2.7 cm with a density measurement of 15 H.. Stomach and bowel: There is a 1.7 cm tubelike metallic structure in the descending colon just below the splenic flexure. The There is a coarse calcification/ossification noted within the posterior right pararenal fat superiorly. Bridging osteophytes are noted at all levels of the thoracolumbar spine. There is a moderate to large amount of stool seen in the colon. There are scattered sigmoid colonic diverticula. No obstruction. No mucosal thickening. Appendix: No findings to suggest acute appendicitis. PELVIS: Bladder: Images of the bladder suggest that the bladder is tethered anteriorly and to the right of midline by scar tissue. The No stones. Reproductive: The the prostate measures some 5 x 6 x 5 cm. ABDOMEN and PELVIS: Intraperitoneal space: Unremarkable. No free air. No significant fluid collection. Bones/joints: There is a grade 1 spondylolisthesis at L2-3 with 4 mm of anterolisthesis of L3 with respect to L2 There is 5 mm of anterolisthesis of L2 with respect to L1. Advanced degenerative changes are seen at L2-3 with endplate sclerosis, vacuum disc phenomenon marginal osteophyte formation. 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 Calcification is noted of the posterior interspinous ligament in the thoracic spine. Soft tissues: Is a small umbilical herni see above a containing fat. Vasculature: Unremarkable. No abdominal aortic aneurysm. Lymph nodes: External iliac lymph nodes are noted bilaterally. The largest measure less than a centimeter in short axis diameter. IMPRESSION: 1. 1.7 cm tubelike metallic structure in the descending colon just below the splenic flexure. This could represent a foreign body. Clinical correlation suggested. 2. Nonobstructing 3.3 mm calcification in the lower pole left kidney. 3. 1.1 cm hyperdense lesion in the midportion of the right kidney not fully characterized. CT with contrast and/or MR might be helpful 4. Degenerative changes noted of the lumbar spine. 5. Bronchiectasis in at both lung bases. 6. Scattered colonic diverticula.
[2017-07-19 02:03] LABS: BASO # 0.1 K/uL (0.0-0.2); BASO % 0.8 % (0.0-2.0); EOS % 0.4 % (0.0-4.0); HEMATOCRIT 19.4 % (35.0-51.0); LYMPH # 1.6 K/uL (1.0-4.3); LYMPH % 16.9 % (20.0-40.0); MEAN CELL VOLUME 83.8 fL (80.0-94.0); MEAN CORPUSCULAR HEMOGLOBIN 28.2 pg (27.0-31.0); MEAN CORPUSCULAR HGB CONC 33.6 g/dL (33.0-37.0); MEAN PLATELET VOLUME 11.2 fL (7.2-11.7); MONO # 1.1 K/uL (0.0-0.8); MONO % 11.4 % (0.0-10.0); RED CELL DISTRIBUTION WIDTH 17.2 % (11.5-14.5); WHITE BLOOD COUNT 9.5 K/uL (4.8-10.8)
[2017-07-19 02:55] LABS: BASO # 0.1 K/uL (0.0-0.2); BASO % 0.6 % (0.0-2.0); EOS % 0.5 % (0.0-4.0); HEMATOCRIT 18.4 % (35.0-51.0); LYMPH # 1.7 K/uL (1.0-4.3); MEAN CORPUSCULAR HEMOGLOBIN 28.3 pg (27.0-31.0); MEAN PLATELET VOLUME 10.7 fL (7.2-11.7); MONO # 1.1 K/uL (0.0-0.8); MONO % 11.3 % (0.0-10.0); RED CELL DISTRIBUTION WIDTH 16.7 % (11.5-14.5); WHITE BLOOD COUNT 9.4 K/uL (4.8-10.8)
[2017-07-19 03:05] LABS: CHLORIDE 111 mmol/L (98-107); SODIUM 141 mmol/L (132-148)
[2017-07-19 03:06] LABS: POTASSIUM 3.6 mmol/L (3.6-5.2)
[2017-07-19 03:08] LABS: ALB/GLOB RATIO 1.1 (1.0-2.1); ALKALINE PHOSPHATASE 39 U/L (38-126); ALT/SGPT 26 U/L (21-72); AST/SGOT 16 U/L (17-59); BILIRUBIN,TOTAL 0.6 mg/dL (0.2-1.3); BLOOD UREA NITROGEN 40 mg/dL (9-20); CALCIUM 7.7 mg/dl (8.6-10.4); CARBON DIOXIDE 21 mmol/L (22-30); GFR AFRICAN-AMERICAN > 60; GLUCOSE,RANDOM 96 mg/dL (75-110); TOTAL PROTEIN 4.6 g/dL (6.3-8.3)
[2017-07-19] MEDS: Sodium Chloride 0.9% 1,000 ML IV SCH ×2 (07:58)
--- NOTE | 2017-07-19 08:27 | RAD ---
Chest x-ray single frontal view History: Fluid overload. Comparison: 07/18/2017 Findings: Mild venous congestion. Bilateral hilar prominence. Mild consolidative changes in the right infrahilar region. Biapical pleural thickening with upper lobe granulomatous changes. Tortuous ectatic aorta. Mild cardiomegaly. Degenerative changes in the spine with paravertebral osteophytes. Impression: Mild venous congestion. Bilateral hilar prominence. Mild consolidative changes in the right infrahilar region. Biapical pleural thickening with upper lobe granulomatous changes. Tortuous ectatic aorta. Mild cardiomegaly.
[2017-07-19] MEDS ORDERED: Midazolam 2 MG/2 ML VIAL ONE (08:35)
[2017-07-19] MEDS ORDERED: Propofol 10 mg/ml Inj (20 ML) ONE (08:35)
[2017-07-19] MEDS ORDERED: Sodium Chloride 0.9% 1,000 ML IV ONE (08:35)
[2017-07-19] MEDS ORDERED: Etomidate 20 mg/10ml Inj IV ONE (09:06)
[2017-07-19] MEDS ORDERED: Rocuronium 10 mg/ml (10 ml) ONE (09:06)
--- NOTE | 2017-07-19 09:16 | CP.PCM.PN ---
Subjective - Date & Time of Evaluation Date of Evaluation: 07/19/17 Time of Evaluation: 09:13 - Subjective Subjective: Brief EGD note: Acute gastric ulcer just below GE junction in fundus. Visible vessel noted upon irrigation in corner of ulcer. Treated with APC and good hemostasis. No other lesions. Hiatal hernia appreciated. Rec/ KEEP NPO IV PROTONIX BY CONTINUOUS INFUSION AVOID ASA, NSAID, ANTIPLATELET RX FOR TWO WEEKS Consider repeat EGD to assess healing before reinitiation of therapy. Findings have been discussed with patients family and need to avoid NSAIDs once anti-platelet Rx has been resumed. Transfuse to hgb=9-10. Objective - Vital Signs/Intake and Output Vital Signs (last 24 hours): Temp Pulse Resp BP Pulse Ox 98.1 F 69 18 154/60 H 99 07/19/17 08:20 07/19/17 08:20 07/19/17 08:20 07/19/17 08:20 07/19/17 08:00 Intake and Output: 07/19/17 07/19/17 06:59 18:59 Intake Total 2100 10 Output Total 500 300 Balance 1600 -290 - Medications Medications: Current Medications Clonidine HCl (Catapres) 0.1 mg PO HS [facility] Last Admin: 07/18/17 21:34 Dose: 0.1 mg Fluticasone Propionate (Flonase) 2 spr NS DAILY [facility] Last Admin: 07/18/17 09:40 Dose: 2 spr Home Med (Patient's Own Drops) 1 drop OU TID [facility] Last Admin: 07/18/17 17:49 Dose: 1 drop Pantoprazole Sodium 80 mg/ (Sodium Chloride) 100 mls @ 10 mls/hr IVPB .Q10H [facility] PRN Reason: 8 MG/HR Last Admin: 07/18/17 22:12 Dose: 10 mls/hr Sodium Chloride (Sodium Chloride 0.9%) 1,000 mls @ 150 mls/hr IV .Q6H40M [facility] Last Admin: 07/19/17 07:58 Dose: Not Given Ondansetron HCl (Zofran Inj) 4 mg IVP Q6H PRN PRN Reason: Nausea/Vomiting Last Admin: 07/18/17 17:51 Dose: 4 mg Rosuvastatin Calcium (Crestor) 5 mg PO HS [facility] Last Admin: 07/18/17 21:34 Dose: 5 mg Tamsulosin HCl (Flomax) 0.4 mg PO HS [facility] Last Admin: 07/18/17 21:34 Dose: 0.4 mg - Labs Labs: 07/19/17 02:52 07/19/17 02:52 PT 12.8 SECONDS (9.7-12.2) H 07/17/17 22:13 INR 1.1 07/17/17 22:13 APTT 29 SECONDS (21-34) 07/17/17 22:13 Assessment and Plan (1) Presence of stent in coronary artery in patient with coronary artery disease Status: Chronic (2) H/O gastric ulcer Status: Acute (3) Anemia due to blood loss, acute Status: Acute (4) Hematemesis Status: Acute
[2017-07-19] MEDS: Pantoprazole 80 MG in Sodium Chloride 0.9% 100 ML IVPB SCH ×3 (10:03→19:26)
[2017-07-19] MEDS: Fluticasone Nasal 50 mcg/Spray NS SCH (10:52)
[2017-07-19] MEDS: BESIVANCE 0.6% OU SCH ×3 (11:00→17:34)
--- NOTE | 2017-07-19 12:26 | CP.PCM.PN ---
Subjective - Date & Time of Evaluation Date of Evaluation: 07/19/17 Time of Evaluation: 12:00 - Subjective Subjective: Patient was moved to the ICU for further monitoring. He then later had an EGD with results showing a gastric ulcer. There were many blood vessels seen in the area. He currently is on a protonix ggt. He also received additional blood transfusion as well as FFP pending. When seen, he reports no shortness of breath, no chest pain, no headache or dizziness. HE does report epigastric area tenderness. Objective - Vital Signs/Intake and Output Vital Signs (last 24 hours): Temp Pulse Resp BP Pulse Ox 98 F 64 18 166/57 H 99 07/19/17 11:06 07/19/17 11:06 07/19/17 11:06 07/19/17 11:06 07/19/17 11:00 Intake and Output: 07/19/17 07/19/17 06:59 18:59 Intake Total 2100 365 Output Total 500 650 Balance 1600 -285 - Medications Medications: Current Medications Clonidine HCl (Catapres) 0.1 mg PO HS [facility] Last Admin: 07/18/17 21:34 Dose: 0.1 mg Fluticasone Propionate (Flonase) 2 spr NS DAILY [facility] Last Admin: 07/19/17 10:52 Dose: 2 spr Home Med (Patient's Own Drops) 1 drop OU TID [facility] Last Admin: 07/18/17 17:49 Dose: 1 drop Pantoprazole Sodium 80 mg/ (Sodium Chloride) 100 mls @ 10 mls/hr IVPB .Q10H [facility] PRN Reason: 8 MG/HR Last Admin: 07/19/17 10:03 Dose: 10 mls/hr Sodium Chloride (Sodium Chloride 0.9%) 1,000 mls @ 150 mls/hr IV .Q6H40M [facility] Last Admin: 07/19/17 07:58 Dose: Not Given Ondansetron HCl (Zofran Inj) 4 mg IVP Q6H PRN PRN Reason: Nausea/Vomiting Last Admin: 07/18/17 17:51 Dose: 4 mg Rosuvastatin Calcium (Crestor) 5 mg PO HS [facility] Last Admin: 07/18/17 21:34 Dose: 5 mg Tamsulosin HCl (Flomax) 0.4 mg PO HS [facility] Last Admin: 07/18/17 21:34 Dose: 0.4 mg - Labs Labs: 07/19/17 02:52 07/19/17 02:52 PT 12.8 SECONDS (9.7-12.2) H 07/17/17 22:13 INR 1.1 07/17/17 22:13 APTT 29 SECONDS (21-34) 07/17/17 22:13 - Constitutional Appears: No Acute Distress, Unkempt, Older Than Stated Age - Eye Exam Eye Exam: EOMI, Normal appearance - ENT Exam ENT Exam: Mucous Membranes Moist - Respiratory Exam Respiratory Exam: Clear to Ausculation Bilateral, NORMAL BREATHING PATTERN - Cardiovascular Exam Cardiovascular Exam: REGULAR RHYTHM - GI/Abdominal Exam GI & Abdominal Exam: Distended, Soft, Tenderness. absent: Firm, Guarding, Rigid - Neurological Exam Neurological Exam: Alert, Awake, Oriented x3 Neuro motor strength exam: Left Upper Extremity: 4, Right Upper Extremity: 4, Left Lower Extremity: 4, Right Lower Extremity: 4 - Psychiatric Exam Psychiatric exam: Normal Affect, Normal Mood - Skin Skin Exam: Normal Color, Warm Assessment and Plan - Assessment and Plan (Free Text) Assessment: 1) Upper GI bleeding: Patient is S/P EGD which showed an acute gastric ulcer just below GE junction in fundus. Visible vessel noted upon irrigation in corner of ulcer. He remains on protonix ggt at this time Avoid NSAIDS, currently Brillinta and ASA on hold In the future he will need something else for pain in place of the NSAIDs His repeat Hgb is still low and he was ordered additional PRBCs as well as FFP 2) CAD history" Currently ASA and Birillinta are on hold at this time.
[2017-07-19 14:17] LABS: HEMATOCRIT 23.4 % (35.0-51.0); MEAN CELL VOLUME 83.5 fL (80.0-94.0); MEAN CORPUSCULAR HGB CONC 34.8 g/dL (33.0-37.0); MEAN PLATELET VOLUME 10.8 fL (7.2-11.7); RED CELL DISTRIBUTION WIDTH 16.7 % (11.5-14.5)
[2017-07-19 21:13] LABS: MEAN CELL VOLUME 83.9 fL (80.0-94.0); MEAN CORPUSCULAR HEMOGLOBIN 28.8 pg (27.0-31.0); MEAN CORPUSCULAR HGB CONC 34.4 g/dL (33.0-37.0); RED CELL DISTRIBUTION WIDTH 16.8 % (11.5-14.5)
[2017-07-20] MEDS: Pantoprazole 80 MG in Sodium Chloride 0.9% 100 ML IVPB SCH ×2 (04:17→17:08)
[2017-07-20 06:45] LABS: BASO # 0.1 K/uL (0.0-0.2); BASO % 0.7 % (0.0-2.0); EOS # 0.3 K/uL (0.0-0.7); HEMATOCRIT 24.1 % (35.0-51.0); LYMPH # 1.6 K/uL (1.0-4.3); LYMPH % 18.2 % (20.0-40.0); MEAN CORPUSCULAR HEMOGLOBIN 29.2 pg (27.0-31.0); MEAN CORPUSCULAR HGB CONC 34.8 g/dL (33.0-37.0); MEAN PLATELET VOLUME 11.2 fL (7.2-11.7); MONO % 11.7 % (0.0-10.0); NRBC % 0.1 % (0.0-2.0); WHITE BLOOD COUNT 8.7 K/uL (4.8-10.8)
[2017-07-20 08:05] LABS: CHLORIDE 107 mmol/L (98-107); POTASSIUM 2.8 mmol/L (3.6-5.2); SODIUM 138 mmol/L (132-148)
[2017-07-20 08:07] LABS: AST/SGOT 40 U/L (17-59); BILIRUBIN,TOTAL 1.1 mg/dL (0.2-1.3); CARBON DIOXIDE 20 mmol/L (22-30); GFR AFRICAN-AMERICAN > 60
[2017-07-20 08:08] LABS: ALKALINE PHOSPHATASE 52 U/L (38-126); ALT/SGPT 27 U/L (21-72); BLOOD UREA NITROGEN 15 mg/dL (9-20); CALCIUM 7.7 mg/dl (8.6-10.4); GLUCOSE,RANDOM 88 mg/dL (75-110); MAGNESIUM 1.5 mg/dL (1.6-2.3); PHOSPHOROUS 2.8 mg/dL (2.5-4.5); TOTAL PROTEIN 5.5 g/dL (6.3-8.3)
[2017-07-20 08:16] LABS: ALB/GLOB RATIO 1.1 (1.0-2.1)
[2017-07-20] MEDS ORDERED: Magnesium Sulfate 1 gm in D5W 1 GM/100 ML BAG IVPB ONE ×2 (08:19→10:00)
--- NOTE | 2017-07-20 08:23 | CP.PCM.PN ---
Subjective - Date & Time of Evaluation Date of Evaluation: 07/20/17 Time of Evaluation: 07:35 - Subjective Subjective: patient has no current chest pain. endoscopy results noted. Objective - Vital Signs/Intake and Output Vital Signs (last 24 hours): Temp Pulse Resp BP Pulse Ox 97.8 F 68 13 129/72 99 07/20/17 04:00 07/20/17 07:04 07/20/17 07:04 07/20/17 07:04 07/20/17 07:04 Intake and Output: 07/20/17 07/20/17 06:59 18:59 Intake Total 605 Output Total 1300 Balance -695 - Medications Medications: Current Medications Clonidine HCl (Catapres) 0.1 mg PO HS [facility] Last Admin: 07/19/17 21:13 Dose: 0.1 mg Fluticasone Propionate (Flonase) 2 spr NS DAILY [facility] Last Admin: 07/19/17 10:52 Dose: 2 spr Home Med (Patient's Own Drops) 1 drop OU TID [facility] Last Admin: 07/19/17 17:34 Dose: 1 drop Pantoprazole Sodium 80 mg/ (Sodium Chloride) 100 mls @ 10 mls/hr IVPB .Q10H [facility] PRN Reason: 8 MG/HR Last Admin: 07/20/17 04:17 Dose: 10 mls/hr Dextrose (Dextrose 5% In Water 1000 Ml) 1,000 mls @ 50 mls/hr IV .Q20H [facility] Last Admin: 07/19/17 22:28 Dose: 50 mls/hr Magnesium Sulfate/Dextrose (Magnesium Sulfate 1 Gm/100 Ml D5w) 1 gm in 100 mls @ 200 mls/hr IVPB ONCE ONE Stop: 07/20/17 08:48 Ondansetron HCl (Zofran Inj) 4 mg IVP Q6H PRN PRN Reason: Nausea/Vomiting Last Admin: 07/18/17 17:51 Dose: 4 mg Rosuvastatin Calcium (Crestor) 5 mg PO HS [facility] Last Admin: 07/19/17 21:13 Dose: 5 mg Tamsulosin HCl (Flomax) 0.4 mg PO HS [facility] Last Admin: 07/19/17 21:12 Dose: 0.4 mg - Labs Labs: 07/20/17 06:36 07/20/17 06:36 PT 12.8 SECONDS (9.7-12.2) H 07/17/17 22:13 INR 1.1 07/17/17 22:13 APTT 29 SECONDS (21-34) 07/17/17 22:13 - Constitutional Appears: Non-toxic - Head Exam Head Exam: NORMAL INSPECTION - Eye Exam Eye Exam: Normal appearance - ENT Exam ENT Exam: Mucous Membranes Moist - Neck Exam Neck Exam: Full ROM - Respiratory Exam Respiratory Exam: NORMAL BREATHING PATTERN - Cardiovascular Exam Cardiovascular Exam: REGULAR RHYTHM - GI/Abdominal Exam GI & Abdominal Exam: Normal Bowel Sounds - Rectal Exam Rectal Exam: Deferred - Extremities Exam Extremities Exam: Pedal Edema - Back Exam Back Exam: NORMAL INSPECTION - Neurological Exam Neurological Exam: Alert - Psychiatric Exam Psychiatric exam: Normal Affect - Skin Skin Exam: Normal Color Assessment and Plan (1) Anemia due to blood loss, acute Assessment & Plan: transfuse to Hgb of 10. Status: Acute (2) CAD (coronary atherosclerotic disease) Assessment & Plan: holding antiplatelet therapy due to GI bleed. risks and benefits and possible stent thrombosis noted discussed Status: Acute (3) Hypercholesteremia Assessment & Plan: statin therapy Status: Acute (4) Hypertension Assessment & Plan: blood pressure control Status: Chronic
[2017-07-20] MEDS: Fluticasone Nasal 50 mcg/Spray NS SCH (10:16)
[2017-07-20] MEDS: BESIVANCE 0.6% OU SCH ×3 (10:16→17:11)
[2017-07-20 15:22] LABS: BASO % 0.3 % (0.0-2.0); EOS # 0.1 K/uL (0.0-0.7); HEMATOCRIT 24.7 % (35.0-51.0); LYMPH # 0.9 K/uL (1.0-4.3); LYMPH % 8.3 % (20.0-40.0); MEAN CELL VOLUME 84.9 fL (80.0-94.0); MEAN CORPUSCULAR HEMOGLOBIN 28.7 pg (27.0-31.0); MEAN CORPUSCULAR HGB CONC 33.8 g/dL (33.0-37.0); MEAN PLATELET VOLUME 10.4 fL (7.2-11.7); MONO # 0.6 K/uL (0.0-0.8); MONO % 5.8 % (0.0-10.0); NRBC % 0.1 % (0.0-2.0); PLATELET COUNT 126 K/uL (130-400); RED CELL DISTRIBUTION WIDTH 16.8 % (11.5-14.5); WHITE BLOOD COUNT 10.4 K/uL (4.8-10.8)
[2017-07-20 15:31] LABS: CHLORIDE 104 mmol/L (98-107); SODIUM 136 mmol/L (132-148)
[2017-07-20 15:32] LABS: POTASSIUM 3.9 mmol/L (3.6-5.2)
[2017-07-20 15:34] LABS: ALB/GLOB RATIO 1.4 (1.0-2.1); ALKALINE PHOSPHATASE 46 U/L (38-126); ALT/SGPT 26 U/L (21-72); AST/SGOT 23 U/L (17-59); BLOOD UREA NITROGEN 15 mg/dL (9-20); CALCIUM 7.7 mg/dl (8.6-10.4); CARBON DIOXIDE 20 mmol/L (22-30); GFR AFRICAN-AMERICAN > 60; GLUCOSE,RANDOM 163 mg/dL (75-110); PHOSPHOROUS 2.8 mg/dL (2.5-4.5); TOTAL PROTEIN 5.3 g/dL (6.3-8.3)
[2017-07-20 15:35] LABS: MAGNESIUM 2.2 mg/dL (1.6-2.3)
[2017-07-20 15:56] LABS: BASOPHIL 1 % (0-2); EOSINOPHIL 2 % (0-4); TOTAL CELLS COUNTED 100
[2017-07-20 15:57] LABS: NEUTROPHIL 86 % (50-75)
[2017-07-20 15:58] LABS: GIANT PLATELETS PRESENT
--- NOTE | 2017-07-20 16:07 | CARD ---
APPROVED REPORT EKG Measurement Heart [id number] <Conclusion> Normal sinus rhythm Normal ECG
--- NOTE | 2017-07-20 17:37 | CP.PCM.PN ---
Subjective - Date & Time of Evaluation Date of Evaluation: 07/20/17 Time of Evaluation: 14:00 - Subjective Subjective: Patient was seen and examined in ICU. Patient was sitting in chair and denies any acute distress Denies any GI bleed today. Patient is status post EGD today. Objective - Vital Signs/Intake and Output Vital Signs (last 24 hours): Temp Pulse Resp BP Pulse Ox 98 F 62 20 105/50 L 98 07/20/17 16:00 07/20/17 17:00 07/20/17 17:00 07/20/17 17:00 07/20/17 17:00 Intake and Output: 07/20/17 07/20/17 06:59 18:59 Intake Total 605 860 Output Total 1300 450 Balance -695 410 - Medications Medications: Current Medications Clonidine HCl (Catapres) 0.1 mg PO HS [facility] Last Admin: 07/19/17 21:13 Dose: 0.1 mg Fluticasone Propionate (Flonase) 2 spr NS DAILY [facility] Last Admin: 07/20/17 10:16 Dose: 2 spr Home Med (Patient's Own Drops) 1 drop OU TID [facility] Last Admin: 07/20/17 17:11 Dose: 1 drop Pantoprazole Sodium 80 mg/ (Sodium Chloride) 100 mls @ 10 mls/hr IVPB .Q10H [facility] PRN Reason: 8 MG/HR Last Admin: 07/20/17 17:08 Dose: 10 mls/hr Dextrose (Dextrose 5% In Water 1000 Ml) 1,000 mls @ 50 mls/hr IV .Q20H [facility] Last Admin: 07/19/17 22:28 Dose: 50 mls/hr Isosorbide Mononitrate (Imdur) 30 mg PO DAILY [facility] Last Admin: 07/20/17 10:15 Dose: 30 mg Metoprolol Tartrate (Lopressor) 25 mg PO BID [facility] Ondansetron HCl (Zofran Inj) 4 mg IVP Q6H PRN PRN Reason: Nausea/Vomiting Last Admin: 07/18/17 17:51 Dose: 4 mg Rosuvastatin Calcium (Crestor) 5 mg PO [facility] Last Admin: 07/19/17 21:13 Dose: 5 mg Tamsulosin HCl (Flomax) 0.4 mg PO [facility] Last Admin: 07/19/17 21:12 Dose: 0.4 mg - Labs Labs: 07/20/17 15:16 07/20/17 15:16 PT 12.8 SECONDS (9.7-12.2) H 07/17/17 22:13 INR 1.1 07/17/17 22:13 APTT 29 SECONDS (21-34) 07/17/17 22:13 - Head Exam Head Exam: ATRAUMATIC, NORMOCEPHALIC - Eye Exam Eye Exam: Normal appearance - ENT Exam ENT Exam: Mucous Membranes Moist - Respiratory Exam Respiratory Exam: Clear to Ausculation Bilateral - Cardiovascular Exam Cardiovascular Exam: REGULAR RHYTHM, +S1, +S2 - GI/Abdominal Exam GI & Abdominal Exam: Soft. absent: Tenderness - Extremities Exam Extremities Exam: absent: Pedal Edema Assessment and Plan (1) Hematemesis Assessment & Plan: No further episode of hematemesis. Status post EGD. Report reviewed. Patient is on Protonix drip. Status: Acute (2) Gastric ulcer Assessment & Plan: Status post EGD. Management as above. Status: Acute (3) Anemia due to blood loss, acute Assessment & Plan: Status post PRBC transfusion. Status: Acute (4) CAD (coronary atherosclerotic disease) Assessment & Plan: Cardiology on board. Holding antiplatelet therapy because of GI bleed. Status: Acute
--- NOTE | 2017-07-20 18:00 | CP.CCUPN ---
CCU Subjective - Physician Review Subjective (Free Text): HPI: Patient seen and examined at bedside. Per nursing staff, no acute events overnight. He had BM last night which was non-bloody, and not dark. Patient denies any headache, chest pain, palpitations, SOB, nausea, vomiting, diarrhea, constipation, weakness. Medical records, labs were reviewed and discussed with housestaff. 07/20/17 17:58 CCU Objective - Vital Signs / Intake & Output Vital Signs (Last 4 hours): Vital Signs Temp Pulse Resp BP Pulse Ox 07/20/17 17:00 62 20 105/50 L 98 07/20/17 16:00 98 F 56 L 21 109/48 L 97 07/20/17 15:00 57 L 20 118/46 L 98 07/20/17 14:00 63 21 118/44 L 98 Intake and Output (Last 8hrs): Intake & Output 07/20/17 07/20/17 07/20/17 06:59 14:59 22:59 Intake Total 480 680 180 Output Total 850 450 Balance -370 230 180 Weight 156 lb 8 oz Intake: Intake, IV Amount 480 680 180 RH #20 400 600 150 Right Hand 80 80 30 Oral 0 Output: Urine 850 450 Urine, Voided 850 450 - Physical Exam Head: Positive for: Atraumatic, Normocephalic Extroacular Muscles: Positive for: EOMI Mouth: Positive for: Moist Mucous Membranes Respiratory/Chest: Positive for: Clear to Auscultation Cardiovascular: Positive for: Regular Rate and Rhythm, Normal S1, S2. Negative for: Murmurs Abdomen: Positive for: Normal Bowel Sounds. Negative for: Tenderness, Distention Lower Extremity: Positive for: Normal Inspection. Negative for: Edema Neurological: Positive for: Speech Normal Skin: Positive for: Warm, Normal Color Psychiatric: Positive for: Alert, Oriented x 3 - Medications Active Medications: Active Medications Generic Name Dose Route Start Last Admin Trade Name Freq PRN Reason Stop Dose Admin Clonidine HCl 0.1 mg 07/18/17 22:00 07/19/17 21:13 Catapres PO 0.1 mg HS [facility] Administration Fluticasone Propionate 2 spr 07/18/17 10:00 07/20/17 10:16 Flonase NS 2 spr DAILY [facility] Administration Home Med 1 drop 07/18/17 10:00 07/20/17 17:11 Patient's Own Drops OU 1 drop TID [facility] Administration Pantoprazole Sodium 80 mg/ 100 mls @ 10 mls/hr 07/18/17 03:00 07/20/17 17:08 Sodium Chloride IVPB 10 mls/hr .Q10H [facility] Administration 8 MG/HR Dextrose 1,000 mls @ 50 mls/hr 07/19/17 22:00 07/19/17 22:28 Dextrose 5% In Water 1000 Ml IV 50 mls/hr .Q20H [facility] Administration Isosorbide Mononitrate 30 mg 07/20/17 10:00 07/20/17 10:15 Imdur PO 30 mg DAILY [facility] Administration Metoprolol Tartrate 25 mg 07/21/17 10:00 Lopressor PO BID [facility] Ondansetron HCl 4 mg 07/18/17 13:00 07/18/17 17:51 Zofran Inj IVP 4 mg Q6H PRN Administration Nausea/Vomiting Rosuvastatin Calcium 5 mg 07/18/17 22:00 07/19/17 21:13 Crestor PO 5 mg HS [facility] Administration Tamsulosin HCl 0.4 mg 07/18/17 22:00 07/19/17 21:12 Flomax PO 0.4 mg HS [facility] Administration - Patient Studies Lab Studies: Lab Studies 07/20/17 07/20/17 07/20/17 Range/Units 16:06 15:16 15:16 WBC 10.4 (4.8-10.8) K/uL RBC 2.91 L (4.40-5.90) Mil/uL Hgb 8.3 L (12.0-18.0) g/dL Hct 24.7 L (35.0-51.0) % MCV 84.9 (80.0-94.0) fL MCH 28.7 (27.0-31.0) pg MCHC 33.8 (33.0-37.0) g/dL RDW 16.8 H (11.5-14.5) % Plt Count 126 L (130-400) K/uL MPV 10.4 (7.2-11.7) fL Neut % (Auto) 84.6 H (50.0-75.0) % Lymph % (Auto) 8.3 L (20.0-40.0) % Taylor % (Auto) 5.8 (0.0-10.0) % Eos % (Auto) 1.0 (0.0-4.0) % Baso % (Auto) 0.3 (0.0-2.0) % Neut # 8.8 H (1.8-7.0) K/uL Lymph # 0.9 L (1.0-4.3) K/uL Taylor # 0.6 (0.0-0.8) K/uL Eos # 0.1 (0.0-0.7) K/uL Baso # 0.0 (0.0-0.2) K/uL Neutrophils % (Manual) 86 H (50-75) % Lymphocytes % (Manual) 7 L (20-40) % Monocytes % (Manual) 4 (0-10) % Eosinophils % (Manual) 2 (0-4) % Basophils % (Manual) 1 (0-2) % Platelet Estimate Slightly decreased L (NORMAL) Giant Platelets Present Hypochromasia (manual) Slight Poikilocytosis (manual Slight Anisocytosis (manual) Slight Target Cells Slight Ovalocytes Slight Sodium 136 (132-148) mmol/L Potassium 3.9 (3.6-5.2) mmol/L Chloride 104 (98-107) mmol/L Carbon Dioxide 20 L (22-30) mmol/L Anion Gap 16 (10-20) BUN 15 (9-20) mg/dL Creatinine 0.7 L (0.8-1.5) MG/DL Est GFR ( Amer) > 60 Est GFR (Non-Af Amer) > 60 POC Glucose (mg/dL) 183 H (65-110) mg/dL Random Glucose 163 H (75-110) mg/dL Calcium 7.7 L (8.6-10.4) mg/dl Phosphorus 2.8 (2.5-4.5) mg/dL Magnesium 2.2 (1.6-2.3) mg/dL Total Bilirubin 1.0 (0.2-1.3) mg/dL AST 23 (17-59) U/L ALT 26 (21-72) U/L Alkaline Phosphatase 46 (38-126) U/L Total Protein 5.3 L (6.3-8.3) g/dL Albumin 3.1 L (3.5-5.0) g/dL Globulin 2.2 (2.2-3.9) gm/dL Albumin/Globulin Ratio 1.4 (1.0-2.1) 07/20/17 07/20/17 07/20/17 Range/Units 11:21 07:06 06:36 WBC 8.7 (4.8-10.8) K/uL RBC 2.87 L (4.40-5.90) Mil/uL Hgb 8.4 L (12.0-18.0) g/dL Hct 24.1 L (35.0-51.0) % MCV 84.0 (80.0-94.0) fL MCH 29.2 (27.0-31.0) pg MCHC 34.8 (33.0-37.0) g/dL RDW 17.0 H (11.5-14.5) % Plt Count 114 L (130-400) K/uL MPV 11.2 (7.2-11.7) fL Neut % (Auto) 66.4 (50.0-75.0) % Lymph % (Auto) 18.2 L (20.0-40.0) % Taylor % (Auto) 11.7 H (0.0-10.0) % Eos % (Auto) 3.0 (0.0-4.0) % Baso % (Auto) 0.7 (0.0-2.0) % Neut # 5.8 (1.8-7.0) K/uL Lymph # 1.6 (1.0-4.3) K/uL Taylor # 1.0 H (0.0-0.8) K/uL Eos # 0.3 (0.0-0.7) K/uL Baso # 0.1 (0.0-0.2) K/uL Neutrophils % (Manual) (50-75) % Lymphocytes % (Manual) (20-40) % Monocytes % (Manual) (0-10) % Eosinophils % (Manual) (0-4) % Basophils % (Manual) (0-2) % Platelet Estimate (NORMAL) Giant Platelets Hypochromasia (manual) Poikilocytosis (manual Anisocytosis (manual) Target Cells Ovalocytes Sodium (132-148) mmol/L Potassium (3.6-5.2) mmol/L Chloride (98-107) mmol/L Carbon Dioxide (22-30) mmol/L Anion Gap (10-20) BUN (9-20) mg/dL Creatinine (0.8-1.5) MG/DL Est GFR ( Amer) Est GFR (Non-Af Amer) POC Glucose (mg/dL) 124 H 99 (65-110) mg/dL Random Glucose (75-110) mg/dL Calcium (8.6-10.4) mg/dl Phosphorus (2.5-4.5) mg/dL Magnesium (1.6-2.3) mg/dL Total Bilirubin (0.2-1.3) mg/dL AST (17-59) U/L ALT (21-72) U/L Alkaline Phosphatase (38-126) U/L Total Protein (6.3-8.3) g/dL Albumin (3.5-5.0) g/dL Globulin (2.2-3.9) gm/dL Albumin/Globulin Ratio (1.0-2.1) 07/20/17 07/19/17 07/19/17 Range/Units 06:36 21:09 21:07 WBC 10.0 (4.8-10.8) K/uL RBC 2.98 L (4.40-5.90) Mil/uL Hgb 8.6 L (12.0-18.0) g/dL Hct 25.0 L (35.0-51.0) % MCV 83.9 (80.0-94.0) fL MCH 28.8 (27.0-31.0) pg MCHC 34.4 (33.0-37.0) g/dL RDW 16.8 H (11.5-14.5) % Plt Count 111 L (130-400) K/uL MPV 11.0 (7.2-11.7) fL Neut % (Auto) (50.0-75.0) % Lymph % (Auto) (20.0-40.0) % Taylor % (Auto) (0.0-10.0) % Eos % (Auto) (0.0-4.0) % Baso % (Auto) (0.0-2.0) % Neut # (1.8-7.0) K/uL Lymph # (1.0-4.3) K/uL Taylor # (0.0-0.8) K/uL Eos # (0.0-0.7) K/uL Baso # (0.0-0.2) K/uL Neutrophils % (Manual) (50-75) % Lymphocytes % (Manual) (20-40) % Monocytes % (Manual) (0-10) % Eosinophils % (Manual) (0-4) % Basophils % (Manual) (0-2) % Platelet Estimate (NORMAL) Giant Platelets Hypochromasia (manual) Poikilocytosis (manual Anisocytosis (manual) Target Cells Ovalocytes Sodium 138 (132-148) mmol/L Potassium 2.8 L (3.6-5.2) mmol/L Chloride 107 (98-107) mmol/L Carbon Dioxide 20 L (22-30) mmol/L Anion Gap 14 (10-20) BUN 15 (9-20) mg/dL Creatinine 0.6 L (0.8-1.5) MG/DL Est GFR ( Amer) > 60 Est GFR (Non-Af Amer) > 60 POC Glucose (mg/dL) 96 (65-110) mg/dL Random Glucose 88 (75-110) mg/dL Calcium 7.7 L (8.6-10.4) mg/dl Phosphorus 2.8 (2.5-4.5) mg/dL Magnesium 1.5 L (1.6-2.3) mg/dL Total Bilirubin 1.1 (0.2-1.3) mg/dL AST 40 (17-59) U/L ALT 27 (21-72) U/L Alkaline Phosphatase 52 (38-126) U/L Total Protein 5.5 L (6.3-8.3) g/dL Albumin 2.9 L D (3.5-5.0) g/dL Globulin 2.6 (2.2-3.9) gm/dL Albumin/Globulin Ratio 1.1 (1.0-2.1) Laboratory Results - last 24 hr 07/19/17 07/19/17 07/20/17 21:07 21:09 06:36 WBC 10.0 RBC 2.98 L Hgb 8.6 L Hct 25.0 L MCV 83.9 MCH 28.8 MCHC 34.4 RDW 16.8 H Plt Count 111 L MPV 11.0 Neut % (Auto) Lymph % (Auto) Taylor % (Auto) Eos % (Auto) Baso % (Auto) Neut # Lymph # Taylor # Eos # Baso # Neutrophils % (Manual) Lymphocytes % (Manual) Monocytes % (Manual) Eosinophils % (Manual) Basophils % (Manual) Platelet Estimate Giant Platelets Hypochromasia (manual) Poikilocytosis (manual Anisocytosis (manual) Target Cells Ovalocytes Sodium 138 Potassium 2.8 L Chloride 107 Carbon Dioxide 20 L Anion Gap 14 BUN 15 Creatinine 0.6 L Est GFR ( Amer) > 60 Est GFR (Non-Af Amer) > 60 POC Glucose (mg/dL) 96 Random Glucose 88 Calcium 7.7 L Phosphorus 2.8 Magnesium 1.5 L Total Bilirubin 1.1 AST 40 ALT 27 Alkaline Phosphatase 52 Total Protein 5.5 L Albumin 2.9 L D Globulin 2.6 Albumin/Globulin Ratio 1.1 07/20/17 07/20/17 07/20/17 06:36 07:06 11:21 WBC 8.7 RBC 2.87 L Hgb 8.4 L Hct 24.1 L MCV 84.0 MCH 29.2 MCHC 34.8 RDW 17.0 H Plt Count 114 L MPV 11.2 Neut % (Auto) 66.4 Lymph % (Auto) 18.2 L Taylor % (Auto) 11.7 H Eos % (Auto) 3.0 Baso % (Auto) 0.7 Neut # 5.8 Lymph # 1.6 Taylor # 1.0 H Eos # 0.3 Baso # 0.1 Neutrophils % (Manual) Lymphocytes % (Manual) Monocytes % (Manual) Eosinophils % (Manual) Basophils % (Manual) Platelet Estimate Giant Platelets Hypochromasia (manual) Poikilocytosis (manual Anisocytosis (manual) Target Cells Ovalocytes Sodium Potassium Chloride Carbon Dioxide Anion Gap BUN Creatinine Est GFR ( Amer) Est GFR (Non-Af Amer) POC Glucose (mg/dL) 99 124 H Random Glucose Calcium Phosphorus Magnesium Total Bilirubin AST ALT Alkaline Phosphatase Total Protein Albumin Globulin Albumin/Globulin Ratio 07/20/17 07/20/17 07/20/17 15:16 15:16 16:06 WBC 10.4 RBC 2.91 L Hgb 8.3 L Hct 24.7 L MCV 84.9 MCH 28.7 MCHC 33.8 RDW 16.8 H Plt Count 126 L MPV 10.4 Neut % (Auto) 84.6 H Lymph % (Auto) 8.3 L Taylor % (Auto) 5.8 Eos % (Auto) 1.0 Baso % (Auto) 0.3 Neut # 8.8 H Lymph # 0.9 L Taylor # 0.6 Eos # 0.1 Baso # 0.0 Neutrophils % (Manual) 86 H Lymphocytes % (Manual) 7 L Monocytes % (Manual) 4 Eosinophils % (Manual) 2 Basophils % (Manual) 1 Platelet Estimate Slightly decreased L Giant Platelets Present Hypochromasia (manual) Slight Poikilocytosis (manual Slight Anisocytosis (manual) Slight Target Cells Slight Ovalocytes Slight Sodium 136 Potassium 3.9 Chloride 104 Carbon Dioxide 20 L Anion Gap 16 BUN 15 Creatinine 0.7 L Est GFR ( Amer) > 60 Est GFR (Non-Af Amer) > 60 POC Glucose (mg/dL) 183 H Random Glucose 163 H Calcium 7.7 L Phosphorus 2.8 Magnesium 2.2 Total Bilirubin 1.0 AST 23 ALT 26 Alkaline Phosphatase 46 Total Protein 5.3 L Albumin 3.1 L Globulin 2.2 Albumin/Globulin Ratio 1.4 Fingerstick Blood Sugar Results: 124 Review of Systems - Constitutional Constitutional: absent: Fever, Chills, Weakness - EENT Ears: absent: Dizziness - Cardiovascular Cardiovascular: absent: Chest Pain, Chest Pain at Rest, Diaphoresis, Dyspnea, Edema, Lightheadedness, Palpitations, Pedal Edema, Syncope - Respiratory Respiratory: absent: Cough, Dyspnea, Wheezing - Gastrointestinal Gastrointestinal: absent: Abdominal Pain, Nausea, Vomiting - Musculoskeletal Musculoskeletal: absent: Numbness, Tingling - Neurological Neurological: absent: Dizziness, Headaches, Syncope, Weakness - Endocrine Endocrine: absent: Fatigue, Palpitations Critical Care Progress Note - Nutrition Nutrition: Nutrition Category Date Time Status Liquid Diet [DIET] Diets 07/20/17 Breakfast Active Assessment/Plan - Assessment and Plan (Free Text) Assessment: 77 year old male with PMHx of DM, GI bleed, Coronary stents, 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 S/p EGD with gastric ulcer just below GE junction treated with Argon Plasma Coagulation. Today 07/20/17: Patient resumed on liquid diet today. Plan: GI: GI bleed - 07/19 EGD: small hiatal hernia. Gastric ulcer with vessels treated with APC, normal duodenum, specimens collected. - Pantoprazole 80 mg IV - f/u H. pylori results Cardio: h/o CAD, HTN - Brillinta and ASA on hold at this time due to UGI bleed - Catapres 0.1 PO HS - Imdur 30 mg PO daily - Lopressor 50 mg PO BID - Crestor 5 mg PO HS Ophtho: bilateral conjunctivitis - continue home meds of Besifloxacin 0.6% drops OU TID ENT: Allergic rhinitis - continue Flonase daily Nephro: h/o BPH - Flomax 0.4 mg PO HS - Low magnesium and potassium today 07/20, supplemented Prophylaxis - Fluids: D5W @50 cc/hr - DVT: SCDs - Zofran 4 mg IV PRN - PT/OT
--- NOTE | 2017-07-20 19:12 | CP.PCM.PN ---
Subjective - Date & Time of Evaluation Date of Evaluation: 07/20/17 Time of Evaluation: 19:09 - Subjective Subjective: Patient denies having nausea, vomiting, abdominal pain. Objective - Vital Signs/Intake and Output Vital Signs (last 24 hours): Temp Pulse Resp BP Pulse Ox 98 F 62 20 105/50 L 98 07/20/17 16:00 07/20/17 17:00 07/20/17 17:00 07/20/17 17:00 07/20/17 17:00 Intake and Output: 07/20/17 07/21/17 18:59 06:59 Intake Total 860 Output Total 450 Balance 410 - Medications Medications: Current Medications Clonidine HCl (Catapres) 0.1 mg PO HS [facility] Last Admin: 07/19/17 21:13 Dose: 0.1 mg Fluticasone Propionate (Flonase) 2 spr NS DAILY [facility] Last Admin: 07/20/17 10:16 Dose: 2 spr Home Med (Patient's Own Drops) 1 drop OU TID [facility] Last Admin: 07/20/17 17:11 Dose: 1 drop Pantoprazole Sodium 80 mg/ (Sodium Chloride) 100 mls @ 10 mls/hr IVPB .Q10H [facility] PRN Reason: 8 MG/HR Last Admin: 07/20/17 17:08 Dose: 10 mls/hr Dextrose (Dextrose 5% In Water 1000 Ml) 1,000 mls @ 50 mls/hr IV .Q20H [facility] Last Admin: 07/20/17 19:02 Dose: 50 mls/hr Isosorbide Mononitrate (Imdur) 30 mg PO DAILY [facility] Last Admin: 07/20/17 10:15 Dose: 30 mg Metoprolol Tartrate (Lopressor) 25 mg PO BID [facility] Ondansetron HCl (Zofran Inj) 4 mg IVP Q6H PRN PRN Reason: Nausea/Vomiting Last Admin: 07/18/17 17:51 Dose: 4 mg Rosuvastatin Calcium (Crestor) 5 mg PO HS [facility] Last Admin: 07/19/17 21:13 Dose: 5 mg Tamsulosin HCl (Flomax) 0.4 mg PO HS [facility] Last Admin: 07/19/17 21:12 Dose: 0.4 mg - Labs Labs: 07/20/17 15:16 07/20/17 15:16 PT 12.8 SECONDS (9.7-12.2) H 07/17/17 22:13 INR 1.1 07/17/17 22:13 APTT 29 SECONDS (21-34) 07/17/17 22:13 - Constitutional Appears: No Acute Distress - Head Exam Head Exam: ATRAUMATIC - Eye Exam Eye Exam: EOMI, PERRL - Neck Exam Neck Exam: absent: Lymphadenopathy, Thyromegaly - Respiratory Exam Respiratory Exam: NORMAL BREATHING PATTERN. absent: Rales, Rhonchi, Wheezes - Cardiovascular Exam Cardiovascular Exam: REGULAR RHYTHM, +S1, +S2. absent: Gallop, Rubs - GI/Abdominal Exam GI & Abdominal Exam: Soft, Normal Bowel Sounds. absent: Tenderness, Mass, Organomegaly - Rectal Exam Rectal Exam: Deferred - Extremities Exam Extremities Exam: absent: Calf Tenderness, Pedal Edema Assessment and Plan (1) Gastric ulcer Assessment & Plan: Patient did not have any bleeding today. Hemoglobin today was stable at 8.3- 8.4 (was 8.1-8.6 yesterday). Will advance diet. Plan is to repeat EGD prior to discharge. Status: Acute
[2017-07-21] MEDS: Pantoprazole 80 MG in Sodium Chloride 0.9% 100 ML IVPB SCH (00:51)
[2017-07-21 06:36] LABS: BASO % 0.5 % (0.0-2.0); EOS # 0.3 K/uL (0.0-0.7); EOS % 3.8 % (0.0-4.0); HEMATOCRIT 23.4 % (35.0-51.0); LYMPH # 1.7 K/uL (1.0-4.3); LYMPH % 20.1 % (20.0-40.0); MEAN CELL VOLUME 83.9 fL (80.0-94.0); MEAN CORPUSCULAR HEMOGLOBIN 28.7 pg (27.0-31.0); MEAN CORPUSCULAR HGB CONC 34.2 g/dL (33.0-37.0); MEAN PLATELET VOLUME 11.5 fL (7.2-11.7); MONO # 0.9 K/uL (0.0-0.8); NRBC % 0.1 % (0.0-2.0); RED CELL DISTRIBUTION WIDTH 17.2 % (11.5-14.5); WHITE BLOOD COUNT 8.3 K/uL (4.8-10.8)
[2017-07-21 06:46] LABS: ALB/GLOB RATIO 1.2 (1.0-2.1); ALKALINE PHOSPHATASE 48 U/L (38-126); ALT/SGPT 29 U/L (21-72); AST/SGOT 25 U/L (17-59); BILIRUBIN,TOTAL 0.8 mg/dL (0.2-1.3); BLOOD UREA NITROGEN 12 mg/dL (9-20); CARBON DIOXIDE 22 mmol/L (22-30); CHLORIDE 105 mmol/L (98-107); GFR AFRICAN-AMERICAN > 60; GLUCOSE,RANDOM 92 mg/dL (75-110); MAGNESIUM 1.9 mg/dL (1.6-2.3); PHOSPHOROUS 2.7 mg/dL (2.5-4.5); POTASSIUM 2.9 mmol/L (3.6-5.2); SODIUM 137 mmol/L (132-148); TOTAL PROTEIN 5.2 g/dL (6.3-8.3)
[2017-07-21] MEDS ORDERED: Magnesium Sulfate 1 gm in D5W 1 GM/100 ML BAG IVPB ONE (08:06)
[2017-07-21] MEDS: BESIVANCE 0.6% OU SCH ×3 (09:11→17:35)
[2017-07-21] MEDS: Fluticasone Nasal 50 mcg/Spray NS SCH ×2 (09:11→10:00)
[2017-07-21] MEDS: Potassium Ch 20mEq in D5W 1,000 ML IV SCH (10:25)
--- NOTE | 2017-07-21 10:28 | CP.PCM.PN ---
Subjective - Date & Time of Evaluation Date of Evaluation: 07/21/17 Time of Evaluation: 10:25 - Subjective Subjective: Patient complains of upper abdominal pain, band-like. He denies having nausea or vomiting. He has not had a bowel movement so salomon today. the bowel movements yesterday were dark brown, not black. Objective - Vital Signs/Intake and Output Vital Signs (last 24 hours): Temp Pulse Resp BP Pulse Ox 98 F 76 14 150/80 94 L 07/21/17 04:00 07/21/17 05:47 07/21/17 05:47 07/21/17 09:10 07/21/17 05:47 Intake and Output: 07/21/17 07/21/17 06:59 18:59 Intake Total 1020 Output Total 1610 Balance -590 - Medications Medications: Current Medications Clonidine HCl (Catapres) 0.1 mg PO [facility] Last Admin: 07/20/17 21:49 Dose: Not Given Fluticasone Propionate (Flonase) 2 spr NS DAILY [facility] Last Admin: 07/21/17 09:11 Dose: 2 spr Home Med (Patient's Own Drops) 1 drop OU TID [facility] Last Admin: 07/21/17 09:11 Dose: 1 drop Pantoprazole Sodium 80 mg/ (Sodium Chloride) 100 mls @ 10 mls/hr IVPB .Q10H [facility] PRN Reason: 8 MG/HR Last Admin: 07/21/17 00:51 Dose: 10 mls/hr Potassium Chloride/Dextrose (Potassium Chl 20 Meq In D5w) 1,000 mls @ 50 mls/ hr IV .Q20H [facility] Isosorbide Mononitrate (Imdur) 30 mg PO DAILY [facility] Last Admin: 07/21/17 09:10 Dose: 30 mg Metoprolol Tartrate (Lopressor) 25 mg PO BID [facility] Last Admin: 07/21/17 09:10 Dose: 25 mg Ondansetron HCl (Zofran Inj) 4 mg IVP Q6H PRN PRN Reason: Nausea/Vomiting Last Admin: 07/18/17 17:51 Dose: 4 mg Rosuvastatin Calcium (Crestor) 5 mg PO [facility] Last Admin: 07/20/17 21:51 Dose: 5 mg Tamsulosin HCl (Flomax) 0.4 mg PO [facility] Last Admin: 07/20/17 21:51 Dose: 0.4 mg - Labs Labs: 07/21/17 06:24 07/21/17 06:24 PT 12.8 SECONDS (9.7-12.2) H 07/17/17 22:13 INR 1.1 07/17/17 22:13 APTT 29 SECONDS (21-34) 07/17/17 22:13 - Constitutional Appears: No Acute Distress - Head Exam Head Exam: ATRAUMATIC, NORMOCEPHALIC - Eye Exam Eye Exam: EOMI, PERRL - Neck Exam Neck Exam: absent: Lymphadenopathy, Thyromegaly - Respiratory Exam Respiratory Exam: NORMAL BREATHING PATTERN. absent: Rales, Rhonchi, Wheezes - Cardiovascular Exam Cardiovascular Exam: REGULAR RHYTHM, +S1, +S2. absent: Gallop, Rubs, Murmur - GI/Abdominal Exam GI & Abdominal Exam: Soft, Normal Bowel Sounds. absent: Tenderness, Mass, Organomegaly - Rectal Exam Rectal Exam: Deferred - Extremities Exam Extremities Exam: absent: Calf Tenderness, Pedal Edema Assessment and Plan (1) Gastric ulcer Assessment & Plan: Patient complains of pain which is unlikely to be from the ulcer. CT scan fro 07/18/17 showed a left kidney stone and a metallic foreign body in the colon, probably a hemostatic clip. Hemoglobin is slightly lower today at 8.0. Will order sonogram. Status: Acute
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
--- NOTE | 2017-07-21 15:13 | US ---
HISTORY: Abdominal pain COMPARISON: CT abdomen and pelvis without oral or IV contrast performed 07/18/17 TECHNIQUE: Sonographic evaluation of the abdomen. FINDINGS: LIVER: Measures 14.4 cm in sagittal dimension. Echogenic liver may be seen in setting of hepatic parenchymal disease or fatty infiltration. No focal hepatic mass identified. The main portal vein appears patent with normal directional flow. No intrahepatic bile duct dilatation. GALLBLADDER: No gallstones. No gallbladder wall thickening. Negative sonographic Gabriel's sign as assessed by the catastrophe claims supervisor. COMMON BILE DUCT: Measures 4 mm. PANCREAS: Not well visualized. RIGHT KIDNEY: Measures 12.6 x 5.8 x 6.0cm. No obstructing calculus or hydronephrosis identified. Midpole posterior anechoic avascular lesion compatible with a cyst measures approximately 3.2 x 3.0 x 2.8 cm. Midpole anterior anechoic avascular lesion compatible with a cyst measures approximately 3.5 x 3.4 x 3.5 cm. Echogenic upper pole renal lesion measures approximately 1.1 x 1.2 x 1.1 cm, indeterminate. LEFT KIDNEY: Measures 11.5 x 5.1 x 6.2cm. 6 mm nonobstructing left lower pole calculus. No hydronephrosis. SPLEEN: Measures approximately 9.5 cm. AORTA: Limited views appear unremarkable. IVC: Limited views appear unremarkable. OTHER FINDINGS: None. IMPRESSION: 3.2 and 3.5 cm right renal cyst. Indeterminate 1.2 cm upper pole indeterminate echogenic lesion. This lesion appears hyperdense on CT performed 07/18/17 without evidence of internal fat content. Suggest further evaluation with dedicated CT in order to assess for possibility of postcontrast enhancement. Nonobstructing 6 mm left lower pole renal calculus. Echogenic liver may be seen in setting of hepatic parenchymal disease or fatty infiltration.
--- NOTE | 2017-07-21 15:17 | CP.PCM.PN ---
Subjective - Date & Time of Evaluation Date of Evaluation: 07/21/17 Time of Evaluation: 14:00 - Subjective Subjective: Patient was seen and examined in ICU. Lying in bed appears comfortable. No further episode of GI bleed. Objective - Vital Signs/Intake and Output Vital Signs (last 24 hours): Temp Pulse Resp BP Pulse Ox 98.2 F 84 20 124/69 97 07/21/17 08:00 07/21/17 12:00 07/21/17 12:00 07/21/17 12:00 07/21/17 12:00 Intake and Output: 07/21/17 07/21/17 06:59 18:59 Intake Total 1020 300 Output Total 1610 Balance -590 300 - Medications Medications: Current Medications Clonidine HCl (Catapres) 0.1 mg PO [facility] Last Admin: 07/20/17 21:49 Dose: Not Given Fluticasone Propionate (Flonase) 2 spr NS DAILY [facility] Last Admin: 07/21/17 09:11 Dose: 2 spr Home Med (Patient's Own Drops) 1 drop OU TID [facility] Last Admin: 07/21/17 09:11 Dose: 1 drop Pantoprazole Sodium 80 mg/ (Sodium Chloride) 100 mls @ 10 mls/hr IVPB .Q10H [facility] PRN Reason: 8 MG/HR Last Admin: 07/21/17 00:51 Dose: 10 mls/hr Potassium Chloride/Dextrose (Potassium Chl 20 Meq In D5w) 1,000 mls @ 50 mls/ hr IV .Q20H [facility] Last Admin: 07/21/17 10:25 Dose: 50 mls/hr Isosorbide Mononitrate (Imdur) 30 mg PO DAILY [facility] Last Admin: 07/21/17 09:10 Dose: 30 mg Metoprolol Tartrate (Lopressor) 25 mg PO BID [facility] Last Admin: 07/21/17 09:10 Dose: 25 mg Ondansetron HCl (Zofran Inj) 4 mg IVP Q6H PRN PRN Reason: Nausea/Vomiting Last Admin: 07/18/17 17:51 Dose: 4 mg Rosuvastatin Calcium (Crestor) 5 mg PO [facility] Last Admin: 07/20/17 21:51 Dose: 5 mg Tamsulosin HCl (Flomax) 0.4 mg PO [facility] Last Admin: 07/20/17 21:51 Dose: 0.4 mg - Labs Labs: 07/21/17 06:24 07/21/17 06:24 PT 12.8 SECONDS (9.7-12.2) H 07/17/17 22:13 INR 1.1 07/17/17 22:13 APTT 29 SECONDS (21-34) 07/17/17 22:13 - Head Exam Head Exam: ATRAUMATIC, NORMOCEPHALIC - Eye Exam Eye Exam: Normal appearance - ENT Exam ENT Exam: Mucous Membranes Moist - Neck Exam Neck Exam: Normal Inspection - Respiratory Exam Respiratory Exam: Clear to Ausculation Bilateral - Cardiovascular Exam Cardiovascular Exam: REGULAR RHYTHM, +S1, +S2 - GI/Abdominal Exam GI & Abdominal Exam: Soft. absent: Tenderness - Extremities Exam Extremities Exam: absent: Pedal Edema Assessment and Plan (1) Hematemesis Assessment & Plan: No further episode of hematemesis. Status post EGD. Continue Protonix. Status: Acute (2) Gastric ulcer Assessment & Plan: Status post EGD. No further episode of bleeding. Status: Acute (3) Anemia due to blood loss, acute Assessment & Plan: Status post PRBC transfusion. H&H is stable. Transfuse as needed Status: Acute (4) CAD (coronary atherosclerotic disease) Assessment & Plan: Continue beta kishore and statin. Antiplatelet therapy on hold because of GI bleed. Status: Acute
[2017-07-22] MEDS: Potassium Ch 20mEq in D5W 1,000 ML IV SCH ×2 (04:15→06:36)
[2017-07-22 06:18] LABS: BASO % 0.6 % (0.0-2.0); EOS # 0.4 K/uL (0.0-0.7); EOS % 4.4 % (0.0-4.0); HEMATOCRIT 25.6 % (35.0-51.0); LYMPH # 1.7 K/uL (1.0-4.3); LYMPH % 18.7 % (20.0-40.0); MEAN CELL VOLUME 84.9 fL (80.0-94.0); MEAN CORPUSCULAR HEMOGLOBIN 29.2 pg (27.0-31.0); MEAN CORPUSCULAR HGB CONC 34.4 g/dL (33.0-37.0); MEAN PLATELET VOLUME 10.8 fL (7.2-11.7); MONO # 0.9 K/uL (0.0-0.8); MONO % 10.5 % (0.0-10.0); WHITE BLOOD COUNT 8.8 K/uL (4.8-10.8)
[2017-07-22 06:30] LABS: CHLORIDE 100 mmol/L (98-107)
[2017-07-22 06:31] LABS: POTASSIUM 3.4 mmol/L (3.6-5.2); SODIUM 139 mmol/L (132-148)
[2017-07-22 06:33] LABS: ALB/GLOB RATIO 1.3 (1.0-2.1); ALKALINE PHOSPHATASE 57 U/L (38-126); ALT/SGPT 34 U/L (21-72); AST/SGOT 24 U/L (17-59); BILIRUBIN,TOTAL 0.7 mg/dL (0.2-1.3); BLOOD UREA NITROGEN 13 mg/dL (9-20); CARBON DIOXIDE 25 mmol/L (22-30); GFR AFRICAN-AMERICAN > 60; TOTAL PROTEIN 5.9 g/dL (6.3-8.3)
[2017-07-22 06:34] LABS: CALCIUM 8.1 mg/dl (8.6-10.4); GLUCOSE,RANDOM 113 mg/dL (75-110); MAGNESIUM 1.9 mg/dL (1.6-2.3); PHOSPHOROUS 2.7 mg/dL (2.5-4.5)
[2017-07-22] MEDS ORDERED: Potassium Chloride 20 mEq ER Tab PO ONE ×2 (09:40→11:20)
[2017-07-22] MEDS ORDERED: Pantoprazole 40 mg EC Tab PO SCH (10:00)
[2017-07-22] MEDS: Fluticasone Nasal 50 mcg/Spray NS SCH (11:18)
[2017-07-22] MEDS: BESIVANCE 0.6% OU SCH ×3 (11:19→15:18)
[2017-07-22] MEDS ORDERED: POLYETHYLENE GLYCOL 3350 17 GM/Dose PACKET PO ONE (11:21)
[2017-07-22 13:56] VITALS: BP 130/68; PULSE 80; RESP 15; O2SAT 100
[2017-07-22 14:24] VITALS: TEMP 97.2
--- NOTE | 2017-07-22 15:48 | CP.PCM.DIS ---
Provider - Provider Date of Admission: 07/17/17 22:59 Attending physician: Armin Rodas MD Time Spent in preparation of Discharge (in minutes): 35 Diagnosis - Discharge Diagnosis (1) Upper GI bleed Status: Acute (2) Hematemesis Status: Acute (3) Anemia due to blood loss, acute Status: Acute (4) CAD (coronary atherosclerotic disease) Status: Chronic (5) Gastric ulcer Status: Acute Hospital Course - Lab Results Lab Results: Most Recent Lab Values WBC 8.8 K/uL (4.8-10.8) 07/22/17 06:08 RBC 3.02 Mil/uL (4.40-5.90) L 07/22/17 06:08 Hgb 8.8 g/dL (12.0-18.0) L 07/22/17 06:08 Hct 25.6 % (35.0-51.0) L 07/22/17 06:08 MCV 84.9 fL (80.0-94.0) 07/22/17 06:08 MCH 29.2 pg (27.0-31.0) 07/22/17 06:08 MCHC 34.4 g/dL (33.0-37.0) 07/22/17 06:08 RDW 17.0 % (11.5-14.5) H 07/22/17 06:08 Plt Count 149 K/uL (130-400) 07/22/17 06:08 MPV 10.8 fL (7.2-11.7) 07/22/17 06:08 Neut % (Auto) 65.8 % (50.0-75.0) 07/22/17 06:08 Lymph % (Auto) 18.7 % (20.0-40.0) L 07/22/17 06:08 Frontier % (Auto) 10.5 % (0.0-10.0) H 07/22/17 06:08 Eos % (Auto) 4.4 % (0.0-4.0) H 07/22/17 06:08 Baso % (Auto) 0.6 % (0.0-2.0) 07/22/17 06:08 Neut # 5.8 K/uL (1.8-7.0) 07/22/17 06:08 Lymph # 1.7 K/uL (1.0-4.3) 07/22/17 06:08 Frontier # 0.9 K/uL (0.0-0.8) H 07/22/17 06:08 Eos # 0.4 K/uL (0.0-0.7) 07/22/17 06:08 Baso # 0.0 K/uL (0.0-0.2) 07/22/17 06:08 Neutrophils % (Manual) 86 % (50-75) H 07/20/17 15:16 Lymphocytes % (Manual) 7 % (20-40) L 07/20/17 15:16 Monocytes % (Manual) 4 % (0-10) 07/20/17 15:16 Eosinophils % (Manual) 2 % (0-4) 07/20/17 15:16 Basophils % (Manual) 1 % (0-2) 07/20/17 15:16 Platelet Estimate Slightly decreased (NORMAL) L 07/20/17 15:16 Giant Platelets Present 07/20/17 15:16 Hypochromasia (manual) Slight 07/20/17 15:16 Poikilocytosis (manual Slight 07/20/17 15:16 Anisocytosis (manual) Slight 07/20/17 15:16 Target Cells Slight 07/20/17 15:16 Ovalocytes Slight 07/20/17 15:16 PT 12.8 SECONDS (9.7-12.2) H 07/17/17 22:13 INR 1.1 07/17/17 22:13 APTT 29 SECONDS (21-34) 07/17/17 22:13 Sodium 139 mmol/L (132-148) 07/22/17 06:08 Potassium 3.4 mmol/L (3.6-5.2) L 07/22/17 06:08 Chloride 100 mmol/L (98-107) 07/22/17 06:08 Carbon Dioxide 25 mmol/L (22-30) 07/22/17 06:08 Anion Gap 17 (10-20) 07/22/17 06:08 BUN 13 mg/dL (9-20) 07/22/17 06:08 Creatinine 0.7 MG/DL (0.8-1.5) L 07/22/17 06:08 Est GFR ( Amer) > 60 07/22/17 06:08 Est GFR (Non-Af Amer) > 60 07/22/17 06:08 POC Glucose (mg/dL) 144 mg/dL (65-110) H 07/22/17 11:39 Random Glucose 113 mg/dL (75-110) H 07/22/17 06:08 Calcium 8.1 mg/dl (8.6-10.4) L 07/22/17 06:08 Phosphorus 2.7 mg/dL (2.5-4.5) 07/22/17 06:08 Magnesium 1.9 mg/dL (1.6-2.3) 07/22/17 06:08 Iron 23 ug/dL (49-181) L 07/18/17 06:10 TIBC 327 ug/dL (250-450) 07/18/17 06:10 % Saturation 7 (20-55) L 07/18/17 06:10 Total Bilirubin 0.7 mg/dL (0.2-1.3) 07/22/17 06:08 AST 24 U/L (17-59) 07/22/17 06:08 ALT 34 U/L (21-72) 07/22/17 06:08 Alkaline Phosphatase 57 U/L (38-126) 07/22/17 06:08 Total Protein 5.9 g/dL (6.3-8.3) L 07/22/17 06:08 Albumin 3.3 g/dL (3.5-5.0) L 07/22/17 06:08 Globulin 2.6 gm/dL (2.2-3.9) 07/22/17 06:08 Albumin/Globulin Ratio 1.3 (1.0-2.1) 07/22/17 06:08 Urine Color Yellow (YELLOW) 07/17/17 21:57 Urine Clarity Clear (Clear) 07/17/17 21:57 Urine pH 6.0 (5.0-8.0) 07/17/17 21:57 Ur Specific Howe 1.019 (1.003-1.030) 07/17/17 21:57 Urine Protein Negative mg/dL (NEGATIVE) 07/17/17 21:57 Urine Glucose (UA) Normal mg/dL (Normal) 07/17/17 21:57 Urine Ketones 1+ mg/dL (NEGATIVE) H 07/17/17 21:57 Urine Blood Negative (NEGATIVE) 07/17/17 21:57 Urine Nitrate Negative (NEGATIVE) 07/17/17 21:57 Urine Bilirubin Negative (NEGATIVE) 07/17/17 21:57 Urine Urobilinogen Normal mg/dL (0.2-1.0) 07/17/17 21:57 Ur Leukocyte Esterase Neg Mark/uL (Negative) 07/17/17 21:57 Urine WBC (Auto) < 1 /hpf (0-5) 07/17/17 21:57 Urine RBC (Auto) 2 /hpf (0-3) 07/17/17 21:57 Ur Squamous Epith Cells < 1 /hpf (0-5) 07/17/17 21:57 Ur Transition Epith Cell < 1 /hpf (0-3) 07/17/17 21:57 Urine Bacteria Rare (<OCC) 07/17/17 21:57 Stool Occult Blood Negative (NEGATIVE) 07/18/17 18:20 Blood Type B POSITIVE 07/18/17 10:04 Antibody Screen Negative 07/18/17 10:04 - Hospital Course Hospital Course: On admission: "Patient is a 77 y/o M with a PMH of DM, GI bleed, Coronary stents, 3 MIs presents to the ER with a CC of coffee ground emesis. He had one episode early in the evening as well as another episode in the ER. It is associated with belly pain but he states he always has belly pain. Denies any dark stools. He has no chest pain or problems breathing. States he has a bad taste in his mouth. Last time he was here in march he presented with chest pain and had a stent placed for CAD. He later had a drop in Hgb that prompted an EGD where he was found to have an gastric ulcer that was banded at that time. Patient takes many medications at home including Brillinta and Mobic." Hospital Course: Patient admitted for upper GI bleeding. Auto Inspector Dr. Farr consulted. He stated to hold antiplatelet therapy and no cardiovascular contraindication to EGD. Blood thinning medications were held. Executive Admin Dr. Fair consulted. Dr. Ortiz covered for him and performed EGD on 07/19/17. Acute gastric ulcer found just below GE junction in fundus. There was a visible vessel noted upon irrigation in corner of ulcer. Patient was treated with APC and good hemostasis was achieved. Dr. Fair following patient after procedure starting 07/20/17. Patient had brown bowel movement without any dark or tarry stool. Hemoglobin up-trending. Patient tolerating full diet. Spoken with Dr. Fair who recommends follow up EGD as an outpatient. Dr. Fair states that he may resume his Brillinta on 07/27/17 and he must discontinue Meloxicam. These instructions from Dr. Fair were reiterated to the patient who verbalized understanding and agreement. Instructions were printed in both [place] and [place]. This is a summary of the hospital course. For more information, please refer to the medical records. Discharge Exam - Head Exam Head Exam: ATRAUMATIC, NORMOCEPHALIC - Eye Exam Eye Exam: EOMI, PERRL - ENT Exam ENT Exam: Mucous Membranes Moist - Respiratory Exam Respiratory Exam: Clear to PA & Lateral. absent: Rales, Rhonchi, Wheezes - Cardiovascular Exam Cardiovascular Exam: REGULAR RHYTHM, +S1, +S2 - GI/Abdominal Exam GI & Abdominal Exam: Normal Bowel Sounds, Soft. absent: Tenderness - Extremities Exam Extremities exam: pedal pulses present - Neurological Exam Neurological exam: Alert, CN II-XII Intact, Oriented x3 - Skin Skin Exam: Dry, Intact, Normal Color, Warm Discharge Plan - Discharge Medications Prescriptions: Pantoprazole [Protonix] 40 mg PO DAILY 30 Days #30 ect - Follow Up Plan Condition: STABLE Disposition: HOME/ ROUTINE Instructions: Pantoprazole (By mouth), Ticagrelor (By mouth), Coronary Artery Disease (DC), Gastrointestinal Bleeding (DC) Additional Instructions: Please continue your home medications which you stated that you have enough at home. Please stop taking Meloxicam because this will worsen your condition. For pain, you may use [id number] Tylenol. Stop the Brillinta until ThursdayJuly 27. Please call Dr. Fair to schedule a follow up appointment and follow up endoscopy. Please follow up with your primary doctor within 1 week of discharge. If there are any new or worsening symptoms, please return to the emergency room. If you notice any dark stools, blood in the stools, or vomit blood, please come to the emergency room. Por favor, contine anamika medicamentos en el hogar que usted declar que tiene suficiente en casa. Deje de emily Meloxicam porque esto empeorar patel condicin. Para el dolor, puede usar Tylenol sin receta mdica. Detener la Brillinta hasta el . Por favor llame al Dr. Fair para programar rebecca fanta de seguimiento y rebecca endoscopia de seguimiento. Por favor, siga con patel mdico de cabecera dentro de 1 semana de terri. Si hay sntomas nuevos o que empeoran, por favor regrese a la anastasiya de emergencias. Si nota heces oscuras, cintia en las heces o cintia de vmito, acuda a la anastasiya de emergencias. Referrals: Alexis Sánchez MD [Staff Provider] - Chito Fair MD [Staff Provider] -
--- NOTE | 2017-07-22 18:05 | CP.PCM.PN ---
Subjective - Date & Time of Evaluation Date of Evaluation: 07/22/17 Time of Evaluation: 18:03 - Subjective Subjective: Patient denies having nausea, vomiting, abdominal pain. He has not had a bowel movement so far today. Objective - Vital Signs/Intake and Output Vital Signs (last 24 hours): Temp Pulse Resp BP Pulse Ox 97.2 F L 80 15 130/68 100 07/22/17 16:00 07/22/17 12:47 07/22/17 12:47 07/22/17 12:47 07/22/17 12:47 Intake and Output: 07/22/17 07/22/17 06:59 18:59 Intake Total 1080 100 Output Total 1400 350 Balance -320 -250 - Medications Medications: Current Medications Clonidine HCl (Catapres) 0.1 mg PO [facility] Last Admin: 07/21/17 21:47 Dose: 0.1 mg Fluticasone Propionate (Flonase) 2 spr NS DAILY [facility] Last Admin: 07/22/17 11:18 Dose: 2 spr Home Med (Patient's Own Drops) 1 drop OU TID [facility] Last Admin: 07/22/17 15:18 Dose: 1 drop Isosorbide Mononitrate (Imdur Er) 30 mg PO DAILY [facility] Last Admin: 07/22/17 11:37 Dose: 30 mg Metoprolol Tartrate (Lopressor) 25 mg PO BID [facility] Last Admin: 07/22/17 11:17 Dose: 25 mg Ondansetron HCl (Zofran Inj) 4 mg IVP Q6H PRN PRN Reason: Nausea/Vomiting Last Admin: 07/18/17 17:51 Dose: 4 mg Pantoprazole Sodium (Protonix Ec Tab) 40 mg PO DAILY [facility] Last Admin: 07/22/17 11:17 Dose: 40 mg Rosuvastatin Calcium (Crestor) 5 mg PO [facility] Last Admin: 07/21/17 21:44 Dose: 5 mg Tamsulosin HCl (Flomax) 0.4 mg PO [facility] Last Admin: 07/21/17 21:44 Dose: 0.4 mg - Labs Labs: 07/22/17 06:08 07/22/17 06:08 PT 12.8 SECONDS (9.7-12.2) H 07/17/17 22:13 INR 1.1 07/17/17 22:13 APTT 29 SECONDS (21-34) 07/17/17 22:13 - Constitutional Appears: No Acute Distress - Head Exam Head Exam: ATRAUMATIC, NORMOCEPHALIC - Eye Exam Eye Exam: EOMI, PERRL - Neck Exam Neck Exam: absent: Lymphadenopathy, Thyromegaly - Respiratory Exam Respiratory Exam: NORMAL BREATHING PATTERN. absent: Rales, Rhonchi, Wheezes - Cardiovascular Exam Cardiovascular Exam: REGULAR RHYTHM, +S1, +S2. absent: Gallop, Rubs, Murmur - GI/Abdominal Exam GI & Abdominal Exam: Soft, Normal Bowel Sounds. absent: Tenderness, Mass, Organomegaly - Rectal Exam Rectal Exam: Deferred - Extremities Exam Extremities Exam: absent: Calf Tenderness, Pedal Edema Assessment and Plan (1) Gastric ulcer Assessment & Plan: Patient has not had any melena or rectal bleeding. The HGB is up to 8.8. We will arrange to perform repeat EGD as an outpatient. Status: Acute
== END 2017-07-22 18:15 | disposition home or self-care (01) | DRG 378 ==
LOC: C.ER 21:33 → C.6T 22:59 → C.9I 07-19 06:50
PROVIDERS: ADMIT Internal Medicine; ATTEND Internal Medicine
PROC: 0W3P8ZZ Control Bleeding in Gastrointestinal Tract, Via Natural or Artificial Opening Endoscopic (ICD-10-PCS; principal; 2017-07-19 08:30)
DX: K25.4 Chronic or unspecified gastric ulcer with hemorrhage (principal); D62 Acute posthemorrhagic anemia; E11.9 Type 2 diabetes mellitus without complications; I10 Essential (primary) hypertension; N40.0 Benign prostatic hyperplasia without lower urinary tract symptoms; G89.29 Other chronic pain; M54.5 Low back pain; I25.10 Atherosclerotic heart disease of native coronary artery without angina pectoris; I25.2 Old myocardial infarction; K44.9 Diaphragmatic hernia without obstruction or gangrene; K57.90 Diverticulosis of intestine, part unspecified, without perforation or abscess without bleeding; K64.9 Unspecified hemorrhoids; Z79.82 Long term (current) use of aspirin; Z79.84 Long term (current) use of oral hypoglycemic drugs; Z82.49 Family history of ischemic heart disease and other diseases of the circulatory system; Z86.73 Personal history of transient ischemic attack (TIA), and cerebral infarction without residual deficits; Z87.891 Personal history of nicotine dependence; Z95.5 Presence of coronary angioplasty implant and graft

== ENCOUNTER 2017-08-10 07:21 | Day surgery (SDC) | payer MEDICARE, MEDICAID ==
[2017-08-10 07:54] VITALS: BMI 30.5
--- NOTE | 2017-08-10 09:27 | CP.SDSHP ---
Same Day Surgery H & P - History Proposed Procedure: EGD - Previous Medical/Surgical History Cardiac: ASHD/CAD Endocrine/Metabolic: Diabetes Previous Surgical History: Appendectomy, carpal tunnel release, cardiac catheterizatioin - Allergies Allergies: Allergies No Known Allergies Allergy (Verified 04/04/17 23:48) - Current Medications Current Medications: See reconciliation sheet - Physical Exam General Appearance: WD WN male in NAD Vital Signs: Vital Signs 08/10/17 07:59 Temperature 97 F L Pulse Rate 50 L Respiratory 19 Rate Blood Pressure 142/62 O2 Sat by Pulse 100 Oximetry Mental Status: Alert & Oriented x3 Neuro: WNL Heart: WNL Lungs: WNL GI: WNL - {Optional Preform as Required} Abdomen: WNL - Impression Impression: Gastric ulcer, anemia Pt. Evaluated Today:Candidate for Anesthesia & Procedure: Yes - Date & Time Date: 08/10/17 Time: 09:27 Short Stay Discharge - Short Stay Discharge Admitting Diagnosis/Reason for Visit: P/H PEPTIC ULCER Disposition: HOME/ ROUTINE
[2017-08-10] MEDS ORDERED: Propofol 10 mg/ml Inj (20 ML) ONE (09:42)
[2017-08-10] MEDS ORDERED: Lidocaine Hydrochloride 5 ML INJ ONE (10:42)
[2017-08-10 11:13] VITALS: TEMP 97.5
[2017-08-10 11:54] VITALS: BP 165/61; PULSE 51; RESP 15; O2SAT 99
== END 2017-08-10 11:23 | disposition home or self-care (01) ==
LOC: C.ENDO 07:21
PROVIDERS: ATTEND Internal Medicine Gastroenterology
DX: B37.81 Candidal esophagitis (principal); K29.60 Other gastritis without bleeding; K44.9 Diaphragmatic hernia without obstruction or gangrene
CPT/HCPCS: 43239; 82948; 88104; 88305; 88342; J2704

== ENCOUNTER 2018-10-20 23:26 | Emergency (ER) | payer MEDICARE, MEDICAID ==
[2018-10-20 23:27] VITALS: BMI 30.5
[2018-10-20 23:41] VITALS: RESP 20
--- NOTE | 2018-10-21 | C.PDOC ---
History Of Present Illness Patient presents to the ER with a complaint of right sided chest wall pain and low blood pressure since tonight. Patient lives alone and recently found out his brother . He reports feeling slightly anxious but is currently speaking in complete sentences. Denies fever, chills, nausea, or vomiting. Time Seen by Provider: 10/20/18 23:59 Chief Complaint (Nursing): High Blood Pressure History Per: Patient History/Exam Limitations: no limitations Onset/Duration Of Symptoms: Hrs Current Symptoms Are (Timing): Still Present Associated Symptoms: Other (Chest wall pain, slightly anxious) Severity: Moderate Pain Scale Rating Of: 4 Exacerbating Factor(s): Pos: None Recent travel outside of the [place]: No Past Medical History Reviewed: Historical Data, Nursing Documentation, Vital Signs Vital Signs: Last Vital Signs Temp 97.9 F 10/20/18 23:34 Pulse 79 10/20/18 23:34 Resp 20 10/20/18 23:34 BP 200/88 H 10/20/18 23:34 Pulse Ox 99 10/20/18 23:34 - Medical History PMH: Arthritis, Diabetes, Diverticulitis (diverticulosis by colonoscopy 2017), Gastritis, HTN, Hypercholesterolemia Denies: Crohn's Disease, Gall Bladder Disease, HIV, Pancreatitis, Chronic Kidney Disease Surgical History: Appendectomy, Coronary Stent Denies: Pacemaker - [facility] Procedures CONTROL BLEEDING IN GASTROINTESTINAL TRACT, ENDO (07/17/17) EXCISION OF STOMACH, ENDO, DIAGN (04/06/17) MEASURE OF CARDIAC SAMPL & PRESSURE, L HEART, PERC APPROACH (01/25/17) PLAIN RADIOGRAPHY OF SINGLE COR ART USING OTH CONTRAST (01/25/17) TRANSFUSE NONAUT RED BLOOD CELLS IN PERIPH VEIN, PERC (04/06/17) Family History: States: Hypertension - Social History Hx Tobacco Use: No Hx Alcohol Use: No Hx Substance Use: No - Immunization History Hx Tetanus Toxoid Vaccination: No Hx Influenza Vaccination: No Hx Pneumococcal Vaccination: Yes Review Of Systems Constitutional: Negative for: Fever, Chills Cardiovascular: Negative for: Palpitations Respiratory: Negative for: Cough, Shortness of Breath Gastrointestinal: Negative for: Nausea, Vomiting Musculoskeletal: Positive for: Other (Chest wall pain) Neurological: Negative for: Weakness, Numbness, Dizziness Psych: Positive for: Other (Anxious) Physical Exam - Physical Exam Appears: Non-toxic Skin: Warm, Dry Head: Normacephalic Oral Mucosa: Moist Neck: Normal, Supple Chest: Symmetrical, No Tenderness Cardiovascular: Rhythm Regular Respiratory: Normal Breath Sounds, No Rales, No Rhonchi, No Wheezing Gastrointestinal/Abdominal: Soft, No Tenderness Neurological/Psych: Oriented x3 ED Course And Treatment - Laboratory Results Result Diagrams: 10/21/18 00:56 10/21/18 00:56 ECG: Interpreted By Me, Viewed By Me ECG Rhythm: Sinus Rhythm (67), Nonspecific Changes O2 Sat by Pulse Oximetry: 99 (room air) Pulse Ox Interpretation: Normal - Radiology CXR: Interpreted by Me, Viewed By Me CXR Interpretation: No: Infiltrates, Fracture, Pnemothorax Progress Note: EKG, blood work, and CXR ordered. Aspirin administered. Medical Decision Making Medical Decision Making: I considered the following diagnoses: acute coronary syndrome, pulmonary embolism, lower respiratory infection, aortic dissection/aneurysm, pneumothorax, pericarditis, esophagitis/GERD, zoster and esophageal rupture but found them to be unlikely based on the history, physical exam, and diagnostics. My conclusions regarding the unlikely diagnoses were based on: the absence of significant EKG abnormalities, the lack of suggestive x-ray findings, the absence of significant abnormalities on cardiac monitoring, the absence of asymmetric pulses,. Patient feels fine and wants to go home. Son agrees to be with him(hipaa compliant) Upon provider reevaluation patient is feeling better, is medically stable, and requires no further treatment in the ED at this time. Patient will be discharged home . Counseling was provided and all questions were answered regarding diagnosis and need for follow up with the referred clinic. There is agreement to discharge plan. Return if symptoms persist or worsen. Disposition Counseled Patient/Family Regarding: Studies Performed, Diagnosis, Need For Followup - Disposition Referrals: Hali French MD [Non-Staff] - Disposition: HOME/ ROUTINE Disposition Time: 01:58 Condition: FAIR Additional Instructions: Please return if symptoms recur Instructions: Anxiety, Adult (DC) Forms: [facility] (Bangladeshi) - Clinical Impression Clinical Impression: Grief reaction, Anxiety - Scribe Statement The provider has reviewed the documentation as recorded by the Scribe Hamzah Wilkinson All medical record entries made by the Scribe were at my direction and personally dictated by me. I have reviewed the chart and agree that the record accurately reflects my personal performance of the history, physical exam, medical decision making, and the department course for this patient. I have also personally directed, reviewed, and agree with the discharge instructions and disposition.
[2018-10-21] MEDS ORDERED: Aspirin 325 mg EC Tablets PO STA (00:37)
[2018-10-21] MEDS ORDERED: Aspirin 325 mg EC Tablets PO ONE (00:49)
[2018-10-21 01:00] LABS: BASO # 0.1 K/uL (0.0-0.2); EOS # 0.2 K/uL (0.0-0.7); EOS % 3.3 % (0.0-4.0); HEMOGLOBIN 11.5 g/dL (12.0-18.0); LYMPH % 17.7 % (20.0-40.0); MEAN CELL VOLUME 88.2 fL (80.0-94.0); MEAN CORPUSCULAR HEMOGLOBIN 29.7 pg (27.0-31.0); MEAN CORPUSCULAR HGB CONC 33.7 g/dL (33.0-37.0); MEAN PLATELET VOLUME 10.4 fL (7.2-11.7); MONO # 0.7 K/uL (0.0-0.8); MONO % 11.5 % (0.0-10.0); NEUT # 3.9 K/uL (1.8-7.0); NEUT % 66.5 % (50.0-75.0); NRBC % 0.1 % (0.0-2.0); RBC 3.86 Mil/uL (4.40-5.90); RED CELL DISTRIBUTION WIDTH 14.7 % (11.5-14.5); WHITE BLOOD COUNT 5.8 K/uL (4.8-10.8)
[2018-10-21 01:07] LABS: INR 1.1; PROTHROMBIN TIME 11.9 SECONDS (9.7-12.2)
[2018-10-21 01:13] LABS: ALB/GLOB RATIO 1.3 (1.0-2.1); ALT/SGPT 20 U/L (21-72); AST/SGOT 22 U/L (17-59); BLOOD UREA NITROGEN 14 mg/dL (9-20); CALCIUM 8.8 mg/dl (8.6-10.4); GFR NON-AFRICAN AMERICAN > 60
[2018-10-21 01:43] VITALS: BP 173/75; PULSE 56; TEMP 98.5
[2018-10-21 02:00] VITALS: O2SAT 99
--- NOTE | 2018-10-21 08:30 | RAD ---
Date of service: 10/21/2018 PROCEDURE: CHEST RADIOGRAPH, 1 VIEW HISTORY: chest pain COMPARISON: 07/19/2017 FINDINGS: LUNGS: No consolidation. Right basal bronchovascular markings are probably [id number] definitive change here perceived. PLEURA: No pneumothorax or pleural fluid seen. CARDIOVASCULAR: There is absence of aortic atherosclerotic calcification on x-ray. Mild cardiomegaly-similar.No significant appearing pulmonary venous congestion. OSSEOUS STRUCTURES: Thoracic spondylosis. Bilateral shoulder arthrosis. No gross fractures appreciated. VISUALIZED UPPER ABDOMEN: Normal. OTHER FINDINGS: None. IMPRESSION: No acute cardiopulmonary pathology suspect..
--- NOTE | 2018-10-21 22:25 | CARD ---
APPROVED REPORT Date of service: 10/20/2018 EKG Measurement Heart [id number] <Conclusion> Normal sinus rhythm Normal ECG
== END 2018-10-21 02:07 | disposition home or self-care (01) ==
LOC: C.ER 23:26
DX: F43.22 Adjustment disorder with anxiety (principal); I10 Essential (primary) hypertension; E78.00 Pure hypercholesterolemia, unspecified; E11.9 Type 2 diabetes mellitus without complications

== ENCOUNTER 2019-03-10 11:33 | Outpatient (CLI) | payer MEDICARE, MEDICAID | END 2019-03-10 11:34 | disposition home or self-care (01) | LOC: C.MRIC 11:33 | DX: M54.16 Radiculopathy, lumbar region (principal) ==